=== PATIENT | female | born 1960 | race Caucasian/White ===

== ENCOUNTER 2018-03-23 12:01 | Emergency (ER) | payer MEDICARE, MEDICAID, SELFPAY ==
[2018-03-23 12:06] VITALS: BP 125/58; PULSE 70; RESP 18; TEMP 36.5; O2SAT 97
--- NOTE | 2018-03-23 12:31 | W.ED.GENAD ---
Discharge Plan Discharge Details Chief Complaint: RespSymp Primary Care Provider: Melanie Cheng V ED Provider: Bo Baires Home Meds and New Rx's Prescriptions: No Action cyanocobalamin (vitamin B-12) [Vitamin B-12] 1,000 MCG tablet extended release 1,000 mcg PO DAILY RF: 0 aspirin 325 MG tablet 325 mg PO DAILY RF: 0 hydrocodone-acetaminophen 1 EACH tablet 1 ea PO BID PRN PRNRF: 0 lorazepam 0.5 MG tablet 0.5 mg PO PRN PRNRF: 0 levothyroxine 137 MCG tablet 125 mcg PO DAILY RF: 0 venlafaxine [Effexor XR] 75 MG capsule,extended release 24hr 150 mg PO DAILY RF: 0 albuterol sulfate 8.5 GM HFA aerosol inhaler 2 inh Inhalation Q4H PRN PRNRF: 0 budesonide-formoterol [Symbicort] 60 PUFF HFA aerosol inhaler 1 inh Inhalation BID RF: 0 methocarbamol 500 MG tablet 500 mg PO DAILY RF: 0 Medical Decision Making [facility] Narrative Medical decision making narrative: 57-year-old female smoker with nearly a week of cough, congestion, production of yellow sputum. She is afebrile, well-appearing, without significant respiratory distress or hypoxia. I do believe this is consistent with acute bronchitis we will treat with a course of Augmentin. She stable for outpatient management. I did discuss return precautions to the ER with the patient prior to discharge HPI - General Adult General Date/Time Provider Initiated Documentation: 03/23/18 12:31. Limitations to Documentation: no limitations. Information obtained by: patient. History of Present Illness 57 year old F presents to the emergency department with the chief complaint of Cough, described as moderate, Quality is described as constant, and is localized to the chest. and it has been constant. Patient did receive the following treatments prior to arrival, none HPI Narrative: 57-year-old female smoker with cough, congestion, production of sputum over proxy 5-7 days time. It has been constant, without modifying factors. No associated fever or vomiting. She denies chest pain or shortness of breath. Positive sick contacts with a friend Related Data Home Medications Medication Instructions Recorded Confirmed aspirin 325 mg PO DAILY 11/12/12 03/23/18 cyanocobalamin (vitamin B-12) 1,000 mcg PO DAILY 11/12/12 03/23/18 [Vitamin B-12] hydrocodone-acetaminophen 1 ea PO BID PRN PRN 11/12/12 03/23/18 levothyroxine 125 mcg PO DAILY 11/12/12 03/23/18 lorazepam 0.5 mg PO PRN PRN 11/12/12 03/23/18 venlafaxine [Effexor XR] 150 mg PO DAILY 11/12/12 03/23/18 albuterol sulfate 2 inh INHALATION Q4H PRN PRN 03/21/15 03/23/18 budesonide-formoterol [Symbicort] 1 inh INHALATION BID 03/21/15 03/23/18 methocarbamol 500 mg PO DAILY 02/04/17 03/23/18 Allergies Allergy/AdvReac Type Severity Reaction Status Date / Time No Known Allergies Allergy Unverified 03/23/18 12:10 General Stated Complaint: RespSymp NAYE: 4 Review of Systems Review of Systems 6 systems reviewed, otherwise - PFSH Social History Smoking/Tobacco Use Status: Current every day Exam Const General: cooperative, healthy appearing, comfortable and no acute distress Orientation: alert, awake and oriented x3 HENMT Head: normal to inspection, normocephalic and atraumatic Ears: TM's normal bilaterally Chest Chest: normal inspection of the chest and normal palpation of entire chest wall Resp Effort & Inspection: normal respiratory effort Auscultation: clear to auscultation bilaterally and other (Few scattered rhonchi present) Cardio Rate: regular rate Rhythm: regular rhythm Heart Sounds: S1 normal and S2 normal Skin Lesions: no lesions Rashes: no rashes Neuro General: alert, awake and oriented x3 Cognition: normal cognition Speech: speech normal Extrem General: normal to inspection and full ROM Psych Appearance: grossly normal and well kempt Course Vital Signs Temperature 36.5 C 03/23/18 12:06 Pulse 70 03/23/18 12:06 Respiratory Rate 18 03/23/18 12:06 Blood Pressure 125/58 L 03/23/18 12:06 Pulse Oximetry 97 03/23/18 12:06 Temperature 36.5 C 03/23/18 12:06 Pulse 70 03/23/18 12:06 Respiratory Rate 18 03/23/18 12:06 Blood Pressure 125/58 L 03/23/18 12:06 Pulse Oximetry 97 03/23/18 12:06
--- NOTE | 2018-03-23 12:34 | ED.GENADUL_ITS ---
Discharge Plan Discharge Details Chief Complaint: RespSymp Primary Care Provider: Melanie Cheng V ED Provider: Bo Baires Home Meds and New Rx's Prescriptions: No Action cyanocobalamin (vitamin B-12) [Vitamin B-12] 1,000 MCG tablet extended release 1,000 mcg PO DAILY RF: 0 aspirin 325 MG tablet 325 mg PO DAILY RF: 0 hydrocodone-acetaminophen 1 EACH tablet 1 ea PO BID PRN PRNRF: 0 lorazepam 0.5 MG tablet 0.5 mg PO PRN PRNRF: 0 levothyroxine 137 MCG tablet 125 mcg PO DAILY RF: 0 venlafaxine [Effexor XR] 75 MG capsule,extended release 24hr 150 mg PO DAILY RF: 0 albuterol sulfate 8.5 GM HFA aerosol inhaler 2 inh Inhalation Q4H PRN PRNRF: 0 budesonide-formoterol [Symbicort] 60 PUFF HFA aerosol inhaler 1 inh Inhalation BID RF: 0 methocarbamol 500 MG tablet 500 mg PO DAILY RF: 0 Medical Decision Making [facility] Narrative Medical decision making narrative: 57-year-old female smoker with nearly a week of cough, congestion, production of yellow sputum. She is afebrile, well- appearing, without significant respiratory distress or hypoxia. I do believe this is consistent with acute bronchitis we will treat with a course of Augmentin. She stable for outpatient management. I did discuss return precautions to the ER with the patient prior to discharge HPI - General Adult General Date/Time Provider Initiated Documentation: 03/23/18 12:31 . Limitations to Documentation: no limitations . Information obtained by: patient . History of Present Illness 57 year old F presents to the emergency department with the chief complaint of Cough, described as moderate, Quality is described as constant, and is localized to the chest. and it has been constant. Patient did receive the following treatments prior to arrival, none HPI Narrative: 57-year-old female smoker with cough, congestion, production of sputum over proxy 5-7 days time. It has been constant, without modifying factors. No associated fever or vomiting. She denies chest pain or shortness of breath. Positive sick contacts with a friend Related Data Home Medications Medication Instructions Recorded Confirmed aspirin 325 mg PO DAILY 11/12/12 03/23/18 cyanocobalamin (vitamin B-12) 1,000 mcg PO DAILY 11/12/12 03/23/18 [Vitamin B-12] hydrocodone-acetaminophen 1 ea PO BID PRN PRN 11/12/12 03/23/18 levothyroxine 125 mcg PO DAILY 11/12/12 03/23/18 lorazepam 0.5 mg PO PRN PRN 11/12/12 03/23/18 venlafaxine [Effexor XR] 150 mg PO DAILY 11/12/12 03/23/18 albuterol sulfate 2 inh INHALATION Q4H PRN PRN 03/21/15 03/23/18 budesonide-formoterol [Symbicort] 1 inh INHALATION BID 03/21/15 03/23/18 methocarbamol 500 mg PO DAILY 02/04/17 03/23/18 Allergies Allergy/AdvReac Type Severity Reaction Status Date / Time No Known Allergies Allergy Unverified 03/23/18 12:10 General Stated Complaint: RespSymp NAYE: 4 Review of Systems Review of Systems 6 systems reviewed, otherwise - PFSH Social History Smoking/Tobacco Use Status: Current every day Exam Const General: cooperative, healthy appearing, comfortable and no acute distress Orientation: alert, awake and oriented x3 HENMT Head: normal to inspection, normocephalic and atraumatic Ears: TM's normal bilaterally Chest Chest: normal inspection of the chest and normal palpation of entire chest wall Resp Effort & Inspection: normal respiratory effort Auscultation: clear to auscultation bilaterally and other (Few scattered rhonchi present) Cardio Rate: regular rate Rhythm: regular rhythm Heart Sounds: S1 normal and S2 normal Skin Lesions: no lesions Rashes: no rashes Neuro General: alert, awake and oriented x3 Cognition: normal cognition Speech: speech normal Extrem General: normal to inspection and full ROM Psych Appearance: grossly normal and well kempt Course Vital Signs Temperature 36.5 C 03/23/18 12:06 Pulse 70 03/23/18 12:06 Respiratory Rate 18 03/23/18 12:06 Blood Pressure 125/58 L 03/23/18 12:06 Pulse Oximetry 97 03/23/18 12:06 Temperature 36.5 C 03/23/18 12:06 Pulse 70 03/23/18 12:06 Respiratory Rate 18 03/23/18 12:06 Blood Pressure 125/58 L 03/23/18 12:06 Pulse Oximetry 97 03/23/18 12:06
== END 2018-03-23 13:03 | disposition home or self-care (01) ==
PROVIDERS: Emergency Provider Emergency Medicine; PCP Family Medicine
DX: J20.9 Acute bronchitis, unspecified (principal); F17.210 Nicotine dependence, cigarettes, uncomplicated
CPT/HCPCS: 99283

== ENCOUNTER 2018-08-17 13:32 | Outpatient (REF) | payer MEDICARE, MEDICAID, SELFPAY ==
[2018-08-17 20:41] LABS: HCT 47.3 % (36.0-46.0); HGB 15.8 g/dL (12.0-15.5); Mean Corp. HGB Concentration 33.4 g/dL (32.0-36.0); Mean Corpuscular Hemoglobin 31.3 pg (27.0-33.0); Mean Corpuscular Volume 93.7 fL (80-95); Mean Platelet Volume 11.8 fL (8.0-11.0); Platelet Count 176 x1000/uL (130-400); RBC 5.05 m/cumm (4.00-5.20); RBC Distribution Width 13.7 % (11.7-14.6); White Blood Cell Count 5.19 k/cumm (4.4-10.8)
[2018-08-17 20:51] LABS: PTT Activated 24.1 sec (21.0-31.4); Prothrombin Time 10.4 sec (9.3-11.0)
[2018-08-17 20:58] LABS: Anion Gap 8.4 mmol/L (3-11); BUN 14 mg/dL (7-18); CO2 31.6 mmol/L (21.0-32.0); CREATININE 0.96 mg/dL (0.55-1.02); Calcium 9.4 mg/dL (8.5-10.1); Chloride 99 mmol/L (98-107); Estimated GFR 59.49 (mL/min/1.73m2); Glucose 81 mg/dL (70-100); Sodium 139 mmol/L (136-145); TSH (W/Ref FT4) 0.14 uIU/mL (0.358-3.74)
[2018-08-17 21:20] LABS: FREE T4 1.58 ng/dL (0.76-1.46)
[2018-08-22 09:43] LABS: Codeine Negative ng/mL (Cutoff: 25); Dihydrocodeine 129 ng/mL (Cutoff: 25); Hydrocodone 142 ng/mL (Cutoff: 25); Hydromorphone 61 ng/mL (Cutoff: 25); Morphine Negative ng/mL (Cutoff: 25); Naloxone Negative ng/mL (Cutoff: 25); Norhydrocodone 831 ng/mL (Cutoff: 25); Noroxycodone Negative ng/mL (Cutoff: 25); Noroxymorphone Negative ng/mL (Cutoff: 25); Opiates Interpretation Positive.
== END 2018-08-17 13:52 ==
LOC: NCHCN 13:32
PROVIDERS: PCP Family Medicine; Visit Provider Family Medicine
DX: E03.9 Hypothyroidism, unspecified (principal); R03.0 Elevated blood-pressure reading, without diagnosis of hypertension; R23.3 Spontaneous ecchymoses; F11.20 Opioid dependence, uncomplicated; M54.5 Low back pain; G89.29 Other chronic pain
CPT/HCPCS: 80048; 80361; 85027; 84439; 84443; 85025; 85610; 85730

== ENCOUNTER 2018-08-27 01:22 | Outpatient (CLI) | payer MEDICARE, MEDICAID, SELFPAY ==
--- NOTE | 2018-08-27 15:12 | DI.CTLCSR_ITS ---
SYMPTOM/DIAGNOSIS: TOBACCO USE, Z72.0, CURRENT SMOKER F17.210 LOW DOSE LUNG CANCER SCREENING EXAMINATION. Noncontrast CT scan of the chest was performed according to the low dose lung cancer screening protocol Comparison CT scan of the chest is 05/12/17. The thoracic aorta shows mild atherosclerosis. Heart size is within normal limits. No significant pericardial effusion seen. No significant thoracic adenopathy is identified. No pleural effusion or pneumothorax is identified. Moderate emphysematous changes are seen within the lungs. No pulmonary infiltrates or pulmonary nodules are identified. The tracheobronchial tree is unremarkable. Degenerative changes are seen in the spine. IMPRESSION: No pulmonary nodules. Category 1. MQSA ASSESSMENT OF FINDINGS: Negative. Category 1. Patient will receive a letter notifying them of these results.
== END 2018-08-27 01:42 ==
PROVIDERS: PCP Family Medicine; Visit Provider Family Medicine
DX: Z12.2 Encounter for screening for malignant neoplasm of respiratory organs (principal); F17.210 Nicotine dependence, cigarettes, uncomplicated
CPT/HCPCS: G0297

== ENCOUNTER 2019-01-31 17:06 | Outpatient (REF) | payer MEDICARE, MEDICAID, SELFPAY ==
[2019-01-31 22:17] LABS: TSH 0.05 uIU/mL (0.358-3.74)
[2019-02-01 13:54] LABS: FREE T4 1.22 ng/dL (0.76-1.46)
== END 2019-01-31 17:26 ==
LOC: NCHCN 17:06
PROVIDERS: PCP Family Medicine; Visit Provider Family Medicine
DX: E03.9 Hypothyroidism, unspecified (principal)
CPT/HCPCS: 84439; 84443

== ENCOUNTER 2019-07-26 13:32 | Outpatient (REF) | payer MEDICARE, MEDICAID, SELFPAY ==
[2019-07-26 20:01] LABS: Anion Gap 8.2 mmol/L (3-11); BUN 12 mg/dL (7-18); CO2 31.8 mmol/L (21.0-32.0); CREATININE 0.76 mg/dL (0.55-1.02); Calcium 9.1 mg/dL (8.5-10.1); Chloride 101 mmol/L (98-107); Glucose 91 mg/dL (74-106); Potassium 4.4 mmol/L (3.5-5.1); Sodium 141 mmol/L (136-145); TSH (W/Ref FT4) 0.24 uIU/mL (0.36-3.74)
[2019-07-26 20:55] LABS: FREE T4 1.31 ng/dL (0.76-1.46)
== END 2019-07-26 13:52 ==
LOC: NCHCN 13:32
PROVIDERS: PCP Family Medicine; Visit Provider Family Medicine
DX: E03.9 Hypothyroidism, unspecified (principal); R35.8 Other polyuria; K21.9 Gastro-esophageal reflux disease without esophagitis; M54.2 Cervicalgia; M54.5 Low back pain
CPT/HCPCS: 80048; 84439; 84443

== ENCOUNTER 2019-08-05 00:35 | Outpatient (CLI) | payer MEDICARE, MEDICAID, SELFPAY ==
--- NOTE | 2019-08-05 10:14 | DI.MAMMO_ITS ---
EXAM: MAMMO SCREENING CLINICAL HISTORY: SCREENING , [facility] Z00.00 TECHNIQUE: Mammograms were interpreted according to the usual protocol including computer analysis w [employer] system, tomosynthesis and C-view imaging. COMPARISON: February 2017 FINDINGS: The breasts are of moderate density with prominent retroareolar nodularity/ductal prominence. No dom inant mass or clumped microcalcification is identified in either breast. Current examination is comp ared with previous examinations including February 2017 and there has been no gross interval change in appearance in comparison with previous studies. IMPRESSION: No specific evidence of malignancy at this time. Routine screening examinations are suggested at year ly intervals in this age group according to the ACS/ACR guidelines. Category 1, breast density catego ry B. BI-RADS Cat 1 - Negative Breast Density - Category B - Scattered areas of fibroglandular density
== END 2019-08-05 00:55 ==
PROVIDERS: PCP Family Medicine; Visit Provider Family Medicine
DX: Z12.31 Encounter for screening mammogram for malignant neoplasm of breast (principal)
CPT/HCPCS: 77063; 77067

== ENCOUNTER 2019-12-06 04:11 | Outpatient (CLI) | payer MEDICARE, MEDICAID, SELFPAY | END 2019-12-06 04:31 | PROVIDERS: PCP Family Medicine; Visit Provider Family Medicine | DX: R07.89 Other chest pain (principal) | CPT/HCPCS: 93225 ==

== ENCOUNTER 2019-12-09 09:01 | Outpatient (CLI) | payer MEDICARE, MEDICAID, SELFPAY ==
--- NOTE | 2019-12-10 08:54 | W.HOLTRPT ---
Date of service: 12/10/19 Time of Service: 08:55 Holter Monitor Report Holter Monitor Note: There is a 48-hour Holter monitor ordered for indication of chest pain. ?Patient was in normal sinus rhythm for the majority of the recording (mean heart rate 82 bpm with a maximum heart rate of 132 bpm) ?There was one episode of SVT lasting 3 beats and rare PACs. ?There were 0 episodes of ventricular tachycardia and 14 PVCs. ?There were 0 episodes of atrial fibrillation no pauses or in 3 seconds and no evidence of high degree heart block. ?Patient diary events were associated with normal sinus rhythm and sinus tachycardia.
== END 2019-12-09 09:21 ==
PROVIDERS: PCP Family Medicine; Visit Provider Family Medicine
DX: R07.89 Other chest pain (principal)
CPT/HCPCS: 93226

== ENCOUNTER 2019-12-10 08:54 | Outpatient (CLI) | payer MEDICARE, MEDICAID, SELFPAY | END 2019-12-10 09:14 | PROVIDERS: PCP Family Medicine; Referring Provider Family Medicine; Visit Provider Internal Medicine Cardiovascular Disease | DX: I47.1 Supraventricular tachycardia (principal); I49.3 Ventricular premature depolarization; I49.1 Atrial premature depolarization; R07.89 Other chest pain | CPT/HCPCS: 93227 ==

== ENCOUNTER 2020-08-28 02:56 | Outpatient (CLI) | payer MEDICARE, MEDICAID, SELFPAY ==
--- NOTE | 2020-08-28 14:25 | DI.CTLCSR_ITS ---
EXAM: CT CHEST LUNG CANCER SCREEN CLINICAL HISTORY: SCREENING FOR LUNG CA,CURRENT SMOKER, F17.210 TECHNIQUE: Imaging Protocol: Axial computed tomography images with coronal and sagittal reformatted images were created and reviewed COMPARISON: CT CT CHEST LUNG CANCER SCREEN from 08/27/2018 FINDINGS: Tracheobronchial tree: Patent where visualized. Mediastinum and Baylee: No dominant adenopathy or fluid collection. Pulmonary parenchyma: No consolidation or dominant measurable mass. Moderate centrilobular emphysema. . Lung Nodules: There is a new 4 x 4 x 3 millimeter nodule in the anterior medial left upper lobe. Pleura: No effusion or pneumothorax. Heart: The heart is not dilated. Minimal coronary artery calcifications are seen. No pericardial effu kierra. Aorta: Ascending aorta 3.7 cm. Minimal calcifications. Upper abdomen: Unremarkable. Bones: Mild degenerative disc changes. Soft Tissues: Unremarkable. IMPRESSION: New 4 millimeter nodule anteromedial left upper lobe. Category BI-RADS Cat 2 - Benign Findings Lung-RADS 1.0 CATEGORIES: Category 0 - Prior chest CT exam(s) being located for comparison. Category 1 - Annual screening in 12 months. No nodules or definitely benign nodules. Category 2 - Annual screening in 12 months. Benign appearance. Nodules with low likelihood of becomin g active cancer. Category 3 - 6-month follow-up. Probably benign. Short-term follow-up suggested. Nodules with low lik elihood of becoming active cancer. Category 4A - 3-month follow-up and CT/PET if >8 mm in size. Suspicious finding. Findings which requi re additional testing. Category 4B - Findings which require additional testing and tissue sampling. Suspicious finding. C Added to Any of the Above - History of prior lung cancer screening. S Added to Any of the Above - Significant unexpected other finding. RADIATION DOSE DELIVERED: 85.97mGy.cm Total DLP DATA REPOSITORY: All CT scans at this facility are submitted to the National Radiology Data Registry (NRDR) Dose Index Registry (DIR) with the [employer] (ACR). RADIATION OPTIMIZATION: All CT scans at this facility use at least one of these dose optimization te chniques: automated exposure control; mA and/or kV adjustment per patient size (includes targeted exa ms where dose is matched to clinical indication); or iterative reconstruction.
== END 2020-08-28 02:57 ==
LOC: DI 02:56
PROVIDERS: PCP Family Medicine; Visit Provider Family Medicine
DX: F17.210 Nicotine dependence, cigarettes, uncomplicated (principal); R91.1 Solitary pulmonary nodule
CPT/HCPCS: 71271

== ENCOUNTER 2020-11-19 16:11 | Outpatient (REF) | payer MEDICARE, MEDICAID, SELFPAY ==
[2020-11-21 14:49] LABS: COVID-19 RT-PCR UVMMC Result Negative (Negative)
== END 2020-11-19 16:12 | disposition home or self-care (01) ==
LOC: NCHCN 16:11
PROVIDERS: PCP Family Medicine; Visit Provider Family Medicine
DX: J02.9 Acute pharyngitis, unspecified (principal); J06.9 Acute upper respiratory infection, unspecified; Z20.822 Contact with and (suspected) exposure to COVID-19
CPT/HCPCS: U0003; 87070

== ENCOUNTER 2020-11-24 02:07 | Outpatient (CLI) | payer MEDICARE, MEDICAID, SELFPAY ==
--- NOTE | 2020-11-24 13:33 | DI.RAD_ITS ---
Exam(s) XR CERVICAL SPINE COMP 4-5V EXAM: XR CERVICAL SPINE COMP 4-5V CLINICAL HISTORY: PARESTHESIA OF ARM, R20.2 TECHNIQUE: COMPARISON: CR CERVICAL SP. LIMITED (TRAUMA) from 09/28/2011 FINDINGS: Five views were obtained. There is narrowing of the intervertebral disc spaces at C5-6 and C6-7. Th ere are moderate hypertrophic endplate and facet degenerative changes throughout the cervical region. There is question narrowing of neural foramina at C3-4 and C5-6 on the right. There may be mild ne ural foraminal narrowing at C5-6 and C6-7 the left. There is no evidence of acute fracture or disloc ation. IMPRESSION: Degenerative changes of the cervical spine as described above. If there is a question of neural impi ngement, additional evaluation with cervical spine MRI may be considered. RADIATION DOSE DELIVERED: Total DLP
== END 2020-11-24 02:27 ==
PROVIDERS: PCP Family Medicine; Visit Provider Family Medicine
DX: M54.2 Cervicalgia (principal); R20.2 Paresthesia of skin; M50.322 Other cervical disc degeneration at C5-C6 level; M50.323 Other cervical disc degeneration at C6-C7 level
CPT/HCPCS: 72050

== ENCOUNTER 2020-12-21 02:33 | Outpatient (CLI) | payer MEDICARE, MEDICAID, SELFPAY ==
--- NOTE | 2020-12-21 15:55 | DI.MRI_ITS ---
Exam(s) MR CERVICAL SPINE WO EXAM: MR CERVICAL SPINE WO CLINICAL HISTORY: CERVICALGIA, M54.2 TECHNIQUE: Multiplanar multisequence MRI of the cervical spine was performed without intravenous con trast. COMPARISON: CR XR CERVICAL SPINE COMP 4-5V from 11/24/2020 FINDINGS: The examination is limited due to patient motion artifact. BONES: Vertebral body heights are maintained. Intervertebral disc spaces are normal. Alignment is nor mal. Degenerative endplate signal changes seen at C5-C6. CERVICAL CORD: Craniovertebral junction is unremarkable. The cervical cord is normal size and signal intensity. SOFT TISSUES: There is a 1.6 cm lipoma in the subcutaneous tissues post anterior to the C5 spinous pr ocess. C2-3: No disc herniation or bulge is identified. No significant central spinal canal or neural forami nal stenosis. C3-4: No disc herniation or bulge is identified. No significant central spinal canal stenosis. Hyper trophic changes are seen at the right uncovertebral joint resulting in moderate right neural foramina l stenosis. No significant left neural foraminal stenosis is seen. C4-5: Mild prominence of the osteophyte disc complex. No significant central spinal canal stenosis. No definite significant neural foraminal stenosis. C5-6: There are degenerative endplate signal changes. There is mild prominence of the osteophyte dis c complex. This does result in mild narrowing of the central spinal canal. There are hypertrophic c hanges of the uncovertebral joint resulting in [id number] bilateral neural foraminal stenosis, right greater than left. C6-7: There is prominence of the osteophyte disc complex. No significant central spinal canal stenos is. There do appear to be hypertrophic changes of the uncovertebral joint resulting in mild bilatera l neural foraminal narrowing. C7-T1: No disc herniation or bulge is identified. No significant central spinal canal or neural king inal stenosis IMPRESSION: 1. Suboptimal examination due to patient motion artifact. 2. Degenerative changes throughout the cervical spine resulting in central spinal canal and neural fo raminal stenosis as described above. DATA REPOSITORY:
== END 2020-12-21 02:53 ==
PROVIDERS: PCP Family Medicine; Visit Provider Family Medicine
DX: M54.2 Cervicalgia (principal); M99.71 Connective tissue and disc stenosis of intervertebral foramina of cervical region
CPT/HCPCS: 72141

== ENCOUNTER 2020-12-27 10:43 | Emergency (ER) | payer MEDICARE, MEDICAID, SELFPAY ==
[2020-12-27] VITALS (48 sets, daily range): BP systolic 108–139; BP diastolic 64–90; PULSE 18–97; RESP 12–27; TEMP 36.7; O2SAT 91–97
--- NOTE | 2020-12-27 10:45 | RT.EKG_ITS ---
APPROVED REPORT Exam: Resting ECG Reason for Exam: chest pain Patient Location: E HR:89 bpm ECG Measurements Heart Rate [address] 135 P 83 QRSd 67 QRS 36 QT 362 T 78 QTc 442 Conclusion Sinus rhythm...normal P axis, V-rate 60- 99 Biatrial enlargement.
--- NOTE | 2020-12-27 11:00 | DI.RAD_ITS ---
Exam(s) XR CHEST 2V PA LATERAL EXAM: XR CHEST 2V PA LATERAL CLINICAL HISTORY: chest pain TECHNIQUE: 2D digital imaging was performed. COMPARISON: CR CHEST 2 VIEWS PA,LAT from 09/17/2015 CR CHEST 2 VIEWS PA,LAT from 09/17/2015 FINDINGS: MEDIASTINUM: Normal. HEART: Normal. PULMONARY VASCULATURE: Normal. LUNGS: Small focal infiltrate to the left of the heart. The lungs are hyperexpanded with flattened d iaphragms suggesting underlying COPD. PLEURAL SPACE: No pleural effusion or pneumothorax. Unchanged scarring in the right costophrenic angl e. BONE:Within normal limits for the patient's age. OTHER FINDINGS:Normal. IMPRESSION: Question of a small infiltrate to the left of the heart. DATA REPOSITORY: RADIATION DOSE DELIVERED:
--- NOTE | 2020-12-27 11:15 | W.ED.GENAD ---
Discharge Plan Disposition Patient Disposition: HOME Condition: Improving Discharge Details Clinical Impression: Lingular pneumonia Primary Care Provider: Melanie Cheng V ED Provider: Bo Baires Home Meds and New Rx's Prescriptions: New azithromycin 250 mg tablet 250 mg PO DAILY 4 Days Qty: 4 RF: 0 Continued cyanocobalamin (vitamin B-12) [Vitamin B-12] 1,000 MCG tablet extended release 1,000 mcg PO DAILY RF: 0 aspirin 325 MG tablet 325 mg PO DAILY RF: 0 albuterol sulfate 8.5 GM HFA aerosol inhaler 2 inh Inhalation Q4H PRN PRNRF: 0 budesonide-formoterol [Symbicort] 60 PUFF HFA aerosol inhaler 1 inh Inhalation BID RF: 0 methocarbamol 500 MG tablet 500 mg PO BID RF: 0 venlafaxine 75 mg capsule,extended release 24hr 75 mg PO DAILY RF: 0 hydrocodone-acetaminophen 5-325 mg tablet 1 tab PO QHS PRNRF: 0 venlafaxine 150 mg capsule,extended release 24hr 150 mg PO DAILY RF: 0 levothyroxine 125 mcg tablet 125 mcg PO Q OTHER DAY RF: 0 losartan 25 mg tablet 25 mg PO DAILY RF: 0 omeprazole 20 mg capsule,delayed release(DR/EC) 20 mg PO DAILY RF: 0 levothyroxine 112 mcg tablet 112 mcg PO Q OTHER DAY RF: 0 Medical Decision Making 60-year-old female states she 3 days or work after her stove ran out of propane and had a headache. Seem to resolve but was replaced by right upper quadrant abdominal pain that is burning, worse with deep inspiration and worse while lying flat. Also complains of sensation of restless legs. No recent fever or vomiting. She took her morning medications. She arrives to the ER in no acute distress, normotensive and oxygenating normally. She has minimal right upper quadrant tenderness on exam. Exam otherwise reassuring. Differential diagnosis is broad, including pleurisy, biliary colic, gastritis, pancreatitis, must exclude PE or ACS. Patient placed in a monitoring specialist, screening laboratories including troponin and D-dimer obtained. Patient given PPI and Mylanta. Patient's diagnostic studies note a white count of 4, hematocrit 47, platelets 109. D-dimer is elevated at 5824. Borderline low sodium of 135. Chemistries otherwise reassuring, troponin negative. Chest x-ray with small right-sided pleural effusion. Given the patient's elevated D-dimer she was referred for CT of the chest, and given her differential diagnosis and tenderness in the right upper quadrant she also had imaging of the abdomen and pelvis. CT scans reveal no acute findings of the abdomen or pelvis. There is no evidence of pulmonary embolism. There is atelectasis versus inflammatory changes of the left lingula. Following medications, the patient is improved. She will note some recent cough and has been a smoker. I will treat her with azithromycin for atypical infections. She is stable and appropriate for discharge home. She understands indications to return to the ER for reevaluation. HPI General Mode of arrival: ambulatory. Date/Time Provider Initiated Documentation: 12/27/20 10:46. Limitations to Documentation: no limitations. Information obtained by: patient. History of Present Illness 60 year old F presents to the emergency department with the chief complaint of Right-sided chest pain and restless legs, described as mild, and is localized to the chest and right. Patient reports no radiation. Patient started experiencing this day(s) and it has been intermittent. No relieving factors improve symptom(s), Other factors that worsen symptoms (Seems worse lying flat) . Patient notes denies shortness of breath. Patient did receive the following treatments prior to arrival, none Related Data Home Medications Medication Instructions Recorded Confirmed aspirin 325 mg PO DAILY 11/12/12 12/27/20 cyanocobalamin (vitamin B-12) 1,000 mcg PO DAILY 11/12/12 12/27/20 [Vitamin B-12] albuterol sulfate 2 inh INHALATION Q4H PRN PRN 03/21/15 12/27/20 budesonide-formoterol [Symbicort] 1 inh INHALATION BID 03/21/15 12/27/20 methocarbamol 500 mg PO BID 02/04/17 12/27/20 azithromycin 250 mg PO DAILY 4 Days #4 tab 12/27/20 hydrocodone-acetaminophen 1 tab PO QHS PRN 12/27/20 12/27/20 levothyroxine 112 mcg PO Q OTHER DAY 12/27/20 12/27/20 levothyroxine 125 mcg PO Q OTHER DAY 12/27/20 12/27/20 losartan 25 mg PO DAILY 12/27/20 12/27/20 omeprazole 20 mg PO DAILY 12/27/20 12/27/20 venlafaxine 75 mg PO DAILY 12/27/20 12/27/20 venlafaxine 150 mg PO DAILY 12/27/20 12/27/20 Previous Rx's Medication Instructions Recorded azithromycin 250 mg PO DAILY 4 Days #4 tab 12/27/20 Allergies Allergy/AdvReac Type Severity Reaction Status Date / Time No Known Allergies Allergy Unverified 12/27/20 10:59 General Stated Complaint: Chest Pain NAYE: 2 Review of Systems Narrative: 6 systems reviewed and otherwise negative. No leg pain or swelling. No recent fall or injury. [facility] Social History Smoking/Tobacco Use Status: Current every day Tobacco Type: cigarettes Smoking risk assessment performed?: Yes Alcohol Intake: never Drug use: Occasionally Substance use type: marijuana Do you feel safe at home: Yes Do you feel safe in your relationship?: Yes Exam Narrative Exam Narrative: GEN: awake, alert, oriented 3. Pleasant, well groomed, interactive. HEAD: Normocephalic, atraumatic ENT: Mucous membranes moist, oropharynx unremarkable, External ear exam unremarkable EYES: PERRL, EOMI NECK: Full ROM, no WAN, no menigismus CHEST/RESP: Nontender, clear to auscultation bilateral, no wheeze/rhonchi/rales CARDIOVASCULAR: RRR, no murmur, rub rosita. 2+ Rad pulse bilateral ABDOMEN: Soft, minimal right upper quadrant tenderness to palpation, no mass. +Bowel sounds EXT: Full ROM, no edema, no rash Neuro: Grossly normal neurologic exam, conversant, interactive. Psych: Speech fluent, thoughts congruent, affect normal Course Vital Signs Vital signs: Vital Signs Pulse 18 L 12/27/20 10:57 Respiratory Rate 20 12/27/20 10:57 Blood Pressure 130/75 12/27/20 10:57 Pulse Oximetry 95 12/27/20 10:57 Pulse 18 L 12/27/20 10:57 Respiratory Rate 20 12/27/20 10:57 Respiratory Effort Non-Labored 12/27/20 11:09 Blood Pressure 130/75 12/27/20 10:57 Blood Pressure Position Sitting 12/27/20 10:57 Pulse Oximetry 95 12/27/20 10:57 Oxygen Delivery Method Room Air 12/27/20 10:57 Oxygen Flow Rate 0 12/27/20 10:57 Pain Level 8 12/27/20 10:57
[2020-12-27 11:22] LABS: Abs Immature Grans 0.01 10^3/uL (0.0-0.06); Absolute Basophil Count 0.02 10^3/uL (0.0-0.2); Absolute Lymphocyte Count 0.61 10^3/uL (1.2-3.4); Absolute Monocyte Count 0.33 10^3/uL (0.1-0.8); Absolute Neutrophil Count 3.23 10^3/uL (1.2-6.7); Basophils % 0.5; HCT 47.2 % (36.0-46.0); HGB 16.3 g/dL (11.2-15.7); Immature Grans % 0.2; Lymphocytes % 14.5; MCH 31.4 pg (27.0-33.0); MCHC 34.5 % (32.0-36.0); MCV 90.9 fL (80-95); MPV 10.6 fL (8.0-11.0); Monocytes % 7.9; Neutrophils % 76.9; Nucleated RBC 0 %; RBC 5.19 10^6/uL (3.93-5.22); RDW 12.8 % (11.7-14.6); RDW-SD 42.8 fL
[2020-12-27] MEDS: Normal Saline 500 ML IV (11:29)
[2020-12-27 11:33] LABS: ALT 23 U/L (14-59); AST 26 U/L (15-37); Albumin 3.9 g/dL (3.4-5.0); Alkaline Phosphatase 93 U/L (46-116); Anion Gap 7.3 mmol/L (3-11); BUN 12 mg/dL (7-18); Bilirubin, Total 0.5 mg/dL (0.2-1.0); CO2 30.7 mmol/L (21.0-32.0); CREATININE 0.9 mg/dL (0.55-1.02); Chloride 97 mmol/L (98-107); Glucose 107 mg/dL (74-106); Magnesium 1.8 mg/dL (1.8-2.4); Potassium 3.8 mmol/L (3.5-5.1); Sodium 135 mmol/L (136-145); Total Protein 7.9 g/dL (6.4-8.2)
[2020-12-27 11:34] LABS: Troponin I < 0.05 ng/mL (<0.06)
[2020-12-27 11:35] LABS: Diff Comment Diff Reviewed; Platelet Count 109 10^3/uL (130-400); RBC Morphology Normal
[2020-12-27] MEDS: Pantoprazole 40 MG VIAL IVP (11:35)
[2020-12-27 11:36] LABS: Lipase 68 U/L (73-393)
[2020-12-27 12:32] LABS: D-Dimer 5824 ng/mlFEU (<500)
--- NOTE | 2020-12-27 12:45 | DI.CT_ITS ---
Exam(s) CT CHEST PE ABD PELVIS W EXAM: CT CHEST PE ABD PELVIS W CLINICAL HISTORY: RUQ/R lower chest pain, DDImer high. TECHNIQUE: Imaging Protocol: Axial CT angiography was performed with multi-slice acquisition and mu lti-planar and/or 3D reconstructions. CONTRAST MATERIAL: Intravenous: Omnipaque 350 Contrast volume:100 mL COMPARISON: CT CT CHEST LUNG CANCER SCREEN from 08/28/2020 FINDINGS: The examination is limited due to patient motion artifact. CHEST: Pulmonary Arteries: No evidence of filling defect to suggest pulmonary emboli. Tracheobronchial tree: Patent where visualized. Mediastinum and Baylee: No dominant adenopathy or fluid collection. Pulmonary parenchyma: There is a small opacity seen in the left lingula. Second smaller opacity more posterior and laterally in the lingular lobe. Moderate centrilobular and paraseptal emphysema. Pleura: No effusion or pneumothorax. Heart: The heart is not dilated. No coronary artery calcifications are seen. No pericardial effusion. Aorta: Thoracic aorta non-dilated. Mild atherosclerosis. No evidence of dissection. Bones: Within normal limits. ABDOMEN: Liver: Normal density. No measurable mass. Portal, Superior Mesenteric, and Splenic Veins: Unremarkable. Gallbladder and Biliary Tract: No radiodense calculus or dilation. Pancreas: Normal density, no abnormal calcifications or inflammatory process. Spleen: Normal. Adrenals: No masses seen. Kidneys: Normal size, contour and axis. No radiodense stones or obstructive uropathy. No masses seen. Abdominal Aorta: Abdominal portion non-dilated. Atherosclerosis. Bowel: No obstruction or bowel wall thickening. Appendix is unremarkable. Sigmoid diverticulosis, but no evidence of acute diverticulitis. There is a moderate amount of retained stool throughout the co lexi. Peritoneal Cavity: No ascites, collection or mesenteric inflammatory response. Lymph Nodes: Within normal limits. Bones: Within normal limits for the patient's age. Soft Tissues: Unremarkable. PELVIS: Bladder: Symmetric distention, no gross wall thickening. Reproductive Organs: Status post hysterectomy. Lymph Nodes: Within normal limits. Bones: Within normal limits. IMPRESSION: 1. No evidence of pulmonary embolism, thoracic aortic dissection or aneurysm. 2. Atelectasis versus inflammatory/infectious changes in the left lingula. Please correlate clinical ly. Follow-up as appropriate. 3. No acute abdominal or pelvic process. RADIATION DOSE DELIVERED: 818.17mGy.cm Total DLP DATA REPOSITORY: All CT scans at this facility are submitted to the National Radiology Data Registry (NRDR) Dose Index Registry (DIR) with the [employer] (A[employer]). RADIATION OPTIMIZATION: All CT scans at this facility use at least one of these dose optimization te chniques: automated exposure control; mA and/or kV adjustment per patient size (includes targeted exa ms where dose is matched to clinical indication); or iterative reconstruction.
--- NOTE | 2020-12-27 13:08 | DI.VRAD_ITS ---
PROCEDURE INFORMATION: Exam: XR Chest Exam date and time: 12/27/2020 12:13 PM Age: 60 years old Clinical indication: Chest wall pain TECHNIQUE: Imaging protocol: XR of the chest. Views: 2 views. COMPARISON: CT CHEST LUNG CANCER SCREEN 08/28/2020 2:23 PM FINDINGS: Lungs: Likely prominent vasculature and or bronchi along the left inferior hilum as there is no definite correlate on recent CT of the chest. Lungs otherwise clear. Hyperexpanded lungs suggestive of COPD. Pleural spaces: No pneumothorax. Small right-sided pleural effusion Heart/Mediastinum: Cardiomediastinal silhouette within normal limits. Bones/joints: No acute displaced fractures. IMPRESSION: Small right-sided pleural effusion without other acute cardiopulmonary findings. Dictated and Authenticated by: Kenton Conti MD. Ordering:MAYE Soriano MD
[2020-12-27] MEDS: Omnipaque 350 MG/ML 100 ML BTL IV (14:13)
[2020-12-27] MEDS: Normal Saline Flush 10 ML SYR IVP (14:14)
[2020-12-27] MEDS: Normal Saline - Diluent 50 ML VIAL IV (14:14)
[2020-12-27 14:31] LABS: Troponin I < 0.05 ng/mL (<0.06)
--- NOTE | 2020-12-27 14:43 | DI.VRAD_ITS ---
PROCEDURE INFORMATION: Exam: CTA Chest With Contrast Exam date and time: 12/27/2020 12:46 PM Age: 60 years old Clinical indication: Other: Ruq/r lower chest pain, ddimer high; Additional info: Ruq/r lower chest pain, ddimer high pe/abd/pel TECHNIQUE: Imaging protocol: Computed tomographic angiography of the chest with contrast. 3D rendering (Not supervised by radiologist): MIP and/or 3D reconstructed images were created by the technologist. Radiation optimization: All CT scans at this facility use at least one of these dose optimization techniques: automated exposure control; mA and/or kV adjustment per patient size (includes targeted exams where dose is matched to clinical indication); or iterative reconstruction. Contrast material: OMNIAQUE 350; Contrast volume: 100 ml; Contrast route: INTRAVENOUS (IV); COMPARISON: CT CHEST LUNG CANCER SCREEN 08/28/2020 2:23 PM FINDINGS: Pulmonary arteries: Normal caliber main pulmonary artery. No convincing evidence of pulmonary embolus. Aorta: Normal caliber aorta. Thyroid: Thyroid unremarkable. Lungs: Clear central airways. Suspected small focus consolidation versus irregular appearing atelectasis left lingula. Image 42 series 4. Additional nodule versus atelectasis slightly more posteriorly. Image 40 series 4. New since prior. Pleural spaces: No pneumothorax. No pleural effusion. Heart: Heart is normal size. Lymph nodes: No suspicious lymphadenopathy. Bones/joints: No acute fracture or dislocation. Bony degenerative changes. Soft tissues: Unremarkable superficial soft tissues. IMPRESSION: 1. No evidence of pulmonary embolus. 2. Atelectasis versus infectious/inflammatory change left lingula. Please correlate for infectious signs/symptoms. PROCEDURE INFORMATION: Exam: CT Abdomen And Pelvis With Contrast Exam date and time: 12/27/2020 12:46 PM Age: 60 years old Clinical indication: Other: Ruq/r lower chest pain, ddimer high; Additional info: Ruq/r lower chest pain, ddimer high pe/abd/pel TECHNIQUE: Imaging protocol: Computed tomography of the abdomen and pelvis with contrast. Radiation optimization: All CT scans at this facility use at least one of these dose optimization techniques: automated exposure control; mA and/or kV adjustment per patient size (includes targeted exams where dose is matched to clinical indication); or iterative reconstruction. Contrast material: OMNIAQUE 350; Contrast volume: 100 ml; Contrast route: INTRAVENOUS (IV); COMPARISON: CT CHEST LUNG CANCER SCREEN 08/28/2020 2:23 PM FINDINGS: Liver: Unremarkable liver. Gallbladder and bile ducts: Unremarkable gallbladder. Pancreas: Unremarkable. Spleen: Unremarkable spleen. Adrenal glands: Unremarkable bilateral adrenal glands. Kidneys and ureters: Unremarkable bilateral kidneys. No hydronephrosis. Ureters not well visualized due to crowding of structures within the abdomen and pelvis. Stomach and bowel: Nonobstructive appearance of the bowel. Appendix: Unremarkable appendix seen at the right upper quadrant. Intraperitoneal space: No significant free fluid. No free air. Vasculature: patent portal and hepatic veins. Vascular calcifications. Normal caliber aorta. Lymph nodes: No suspicious lymphadenopathy. Urinary bladder: Bladder poorly distended and poorly evaluated. Grossly unremarkable. Reproductive: Uterus appears absent. Adnexa not definitively seen. Bones/joints: Bony degenerative changes. No acute fracture or dislocation. Soft tissues: Unremarkable superficial soft tissues. Possible intramuscular lipoma left thigh. IMPRESSION: No acute findings of the abdomen or pelvis. Dictated and Authenticated by: Kenton Conti MD. Ordering:MAYE Soriano MD
[2020-12-27] MEDS: Azithromycin 250 MG TAB 500 MG PO (15:02)
== END 2020-12-27 15:11 | disposition home or self-care (01) ==
PROVIDERS: Emergency Provider Emergency Medicine; PCP Family Medicine
DX: J18.8 Other pneumonia, unspecified organism (principal); F17.210 Nicotine dependence, cigarettes, uncomplicated
CPT/HCPCS: 36415; 71275; 74177; 80053; 83690; 93005; 96361; 96374; 99285; 71046; 83735; 84484; 85025; 85379; 93010; 99284; J3490

== ENCOUNTER 2021-01-14 16:50 | Outpatient (REF) | payer MEDICARE, MEDICAID, SELFPAY ==
[2021-01-21 07:30] LABS: EDDP-by GC-MS Negative ng/mL (Cutoff: 100); Methadone Interpretation Negative.; Methadone-by GC-MS Negative ng/mL (Cutoff: 100)
== END 2021-01-14 16:51 | disposition home or self-care (01) ==
LOC: NCHCN 16:50
PROVIDERS: PCP Family Medicine; Visit Provider Family Medicine
DX: Z51.81 Encounter for therapeutic drug level monitoring (principal)
CPT/HCPCS: 80358

== ENCOUNTER 2021-03-16 16:43 | Outpatient (REF) | payer MEDICARE, MEDICAID, SELFPAY ==
[2021-03-16 19:55] LABS: Abs Immature Grans 0.04 10^3/uL (0.0-0.06); Absolute Basophil Count 0.05 10^3/uL (0.0-0.2); Absolute Eosinophil Count 0.05 10^3/uL (0.0-0.7); Absolute Lymphocyte Count 2.03 10^3/uL (1.2-3.4); Absolute Neutrophil Count 4.46 10^3/uL (1.2-6.7); Basophils % 0.7; Eosinophils % 0.7; HCT 43.5 % (36.0-46.0); Immature Grans % 0.6; Lymphocytes % 28.5; MCH 30.8 pg (27.0-33.0); MCHC 32.2 % (32.0-36.0); MCV 95.6 fL (80-95); MPV 10.7 fL (8.0-11.0); Neutrophils % 62.5; Nucleated RBC 0 %; Platelet Count 223 10^3/uL (130-400); RBC 4.55 10^6/uL (3.93-5.22); RDW 13.1 % (11.7-14.6); RDW-SD 46.6 fL; WBC 7.13 10^3/uL (4.4-10.8)
[2021-03-16 20:01] LABS: ESR 8 mm/hr (0-30)
[2021-03-16 20:39] LABS: BUN 12 mg/dL (7-18); CREATININE 0.9 mg/dL (0.55-1.02); Calcium 9.1 mg/dL (8.5-10.1); Chloride 103 mmol/L (98-107); FREE T4 1.17 ng/dL (0.76-1.46); Glucose 167 mg/dL (74-106); Potassium 3.7 mmol/L (3.5-5.1); Sodium 139 mmol/L (136-145); TSH 0.24 uIU/mL (0.36-3.74)
[2021-03-16 20:41] LABS: C-Reactive Protein < 0.05 mg/dL (0.0-0.3)
[2021-03-18 11:05] LABS: Hepatitis C Ab w Rflx HCV PCR Negative (Negative)
== END 2021-03-16 16:44 | disposition home or self-care (01) ==
LOC: NCHCN 16:43
PROVIDERS: PCP Family Medicine; Visit Provider Family Medicine
DX: E03.9 Hypothyroidism, unspecified (principal); R61 Generalized hyperhidrosis; R23.8 Other skin changes; J44.9 Chronic obstructive pulmonary disease, unspecified; I10 Essential (primary) hypertension; M54.2 Cervicalgia; M54.5 Low back pain; Z00.00 Encounter for general adult medical examination without abnormal findings
CPT/HCPCS: 80048; 85652; 86803; 84439; 84443; 85025; 86140

== ENCOUNTER 2021-03-31 13:24 | Emergency (ER) | payer MEDICARE, MEDICAID, SELFPAY ==
[2021-03-31 13:49] VITALS: BP 129/67; PULSE 75; RESP 18; TEMP 36.6; O2SAT 97
--- NOTE | 2021-03-31 14:33 | ED.GENADUL_ITS ---
Discharge Plan Disposition Patient Disposition: HOME Condition: Good Discharge Details Clinical Impression: Close exposure to COVID-19 virus, Dog bite Primary Care Provider: Melanie Cheng V ED Provider: Gloria Askew Home Meds and New Rx's Prescriptions: Continued cyanocobalamin (vitamin B-12) [Vitamin B-12] 1,000 MCG tablet extended release 1,000 mcg PO DAILY RF: 0 aspirin 325 MG tablet 325 mg PO DAILY RF: 0 albuterol sulfate 8.5 GM HFA aerosol inhaler 2 inh Inhalation Q4H PRN PRNRF: 0 budesonide-formoterol [Symbicort] 60 PUFF HFA aerosol inhaler 1 inh Inhalation BID RF: 0 methocarbamol 500 MG tablet 500 mg PO BID RF: 0 venlafaxine 75 mg capsule,extended release 24hr 75 mg PO DAILY RF: 0 hydrocodone-acetaminophen 5-325 mg tablet 1 tab PO QHS PRNRF: 0 venlafaxine 150 mg capsule,extended release 24hr 150 mg PO DAILY RF: 0 levothyroxine 125 mcg tablet 125 mcg PO Q OTHER DAY RF: 0 losartan 25 mg tablet 50 mg PO DAILY RF: 0 omeprazole 20 mg capsule,delayed release(DR/EC) 20 mg PO DAILY RF: 0 levothyroxine 112 mcg tablet 112 mcg PO Q OTHER DAY RF: 0 Discharge Instructions Instructions: Animal Bite (ED) Additional Instructions: Continue to observe the rashes and bites, if you have spreading redness, fever, worsening pain, repeat reassessed I do not feel as though you need antibiotics at this time You are receiving a tetanus vaccine You do not need a rabies vaccine as this dog is able to be quarantined for the next 10 days, if there are any signs or symptoms of rabies as the dog is not able to be vaccinated yet then you will need a rabies vaccine, this has been reported You will need a Covid swab 7 days after exposure Should you have shortness of breath, low oxygen less than 90%, spreading redness, fever, or with any new or worsening complaints Discharge Data Discharge Date/Time-TO BE ENTERED AT DEPARTURE: 03/31/21 15:05 Medical Decision Making Patient appears well, there is no evidence of secondary infection, the dog bite from her niece's dog is able to be observed for 10 days, she is willing for a month old and she is young for rabies vaccine although no exposure to rabies noted, will be quarantined at home for 10 days of observation, no need to animal control Patient declines rabies vaccine point, her tetanus was updated She was expressed to Covid yesterday, she is instructed this is too early to test for it but she will schedule a Covid test in 7 days She given low threshold to return should she have new or worsening complaints As patient is 7 days post ndog bite, there is no indication for antibiotics at this time Medical Records Medical records reviewed: Yes I reviewed the patient's medical records. HPI General Mode of arrival: ambulatory . Date/Time Provider Initiated Documentation: 03/31/21 14:32 . Limitations to Documentation: no limitations . Information obtained by: patient . HPI Narrative: Missed 60-year-old female presents with dog bites to bilateral upper extremities. She also states that she was exposed to an indirect Covid yesterday. She denies any chest pain, shortness of breath, fever, chills. Denies any additional injuries. Tetanus is up-to-date. The bite from a puppy that is approximately 4-month old and I able to be rabies vaccinated. The dog is under quarantine or able to be observed and there is no indication for rabies vaccine at this time. Denies any strength or sensation changes. Mostly presented for a tetanus shot. Related Data Home Medications Medication Instructions Recorded Confirmed aspirin 325 mg PO DAILY 11/12/12 03/31/21 cyanocobalamin (vitamin B-12) 1,000 mcg PO DAILY 11/12/12 03/31/21 [Vitamin B-12] albuterol sulfate 2 inh INHALATION Q4H PRN PRN 03/21/15 03/31/21 budesonide-formoterol [Symbicort] 1 inh INHALATION BID 03/21/15 03/31/21 methocarbamol 500 mg PO BID 02/04/17 03/31/21 hydrocodone-acetaminophen 1 tab PO QHS PRN 12/27/20 03/31/21 levothyroxine 112 mcg PO Q OTHER DAY 12/27/20 03/31/21 levothyroxine 125 mcg PO Q OTHER DAY 12/27/20 03/31/21 losartan 50 mg PO DAILY 12/27/20 03/31/21 omeprazole 20 mg PO DAILY 12/27/20 03/31/21 venlafaxine 75 mg PO DAILY 12/27/20 03/31/21 venlafaxine 150 mg PO DAILY 12/27/20 03/31/21 Allergies Allergy/AdvReac Type Severity Reaction Status Date / Time No Known Allergies Allergy Unverified 03/31/21 14:00 General Stated Complaint: AnimalBite NAYE: 5 Review of Systems All systems reviewed & are unremarkable except as noted in HPI and below PFSH Social History Smoking/Tobacco Use Status: Current every day Tobacco Type: cigarettes Smoking risk assessment performed?: Yes Alcohol Intake: never Drug use: Occasionally Substance use type: marijuana Do you feel safe at home: Yes Do you feel safe in your relationship?: Yes Exam Resp Effort & Inspection: normal respiratory effort Cardio Rate: regular rate Neuro General: patient alert and patient oriented x3 Extrem Other: Numerous healing bite evans noted to bilateral forearms. No evidence of secondary infection. Superficial Distal pulses intact, strength and sensation intact Course Vital Signs Vital signs: Vital Signs Temperature 36.6 C 03/31/21 13:49 Pulse 75 03/31/21 13:49 Respiratory Rate 18 03/31/21 13:49 Blood Pressure 129/67 03/31/21 13:49 Pulse Oximetry 97 03/31/21 13:49 Temperature 36.6 C 03/31/21 13:49 Temperature Source Skin 03/31/21 13:49 Pulse 75 03/31/21 13:49 Respiratory Rate 18 03/31/21 13:49 Respiratory Effort 03/31/21 13:59 Blood Pressure 129/67 03/31/21 13:49 Blood Pressure Position Sitting 03/31/21 13:49 Pulse Oximetry 97 03/31/21 13:49 Oxygen Delivery Method Room Air 03/31/21 13:49 Oxygen Flow Rate 0 03/31/21 13:49 Pain Level 1 03/31/21 13:49
== END 2021-03-31 15:05 | disposition home or self-care (01) ==
PROVIDERS: Emergency Provider Physician Assistant; PCP Family Medicine
DX: S51.852A Open bite of left forearm, initial encounter (principal); S51.851A Open bite of right forearm, initial encounter; W54.0XXA Bitten by dog, initial encounter; Z20.822 Contact with and (suspected) exposure to COVID-19
CPT/HCPCS: 90471; 99284; 99283

== ENCOUNTER 2021-09-14 13:39 | Emergency (ER) | payer MEDICARE, MEDICAID, SELFPAY ==
[2021-09-14] VITALS (14 sets, daily range): BP systolic 126–166; BP diastolic 52–112; PULSE 59–132; RESP 20; TEMP 36.2; O2SAT 89–100
--- NOTE | 2021-09-14 14:45 | DI.RAD_ITS ---
Exam(s) XR PORTABLE CHEST AP EXAM: XR PORTABLE CHEST AP CLINICAL HISTORY: cough,sob. TECHNIQUE: 2D digital imaging was performed. COMPARISON: CR,XR XR CHEST 2V PA LATERAL from 12/27/2020 FINDINGS: LUNGS: Clear. No pleural abnormality seen. HEART: Normal. MEDIASTINUM: Normal. OTHER FINDINGS: None. IMPRESSION: No acute pulmonary findings. DATA REPOSITORY: RADIATION DOSE DELIVERED: Total DLP
--- NOTE | 2021-09-14 15:03 | ED.GENADUL_ITS ---
Discharge Plan Disposition Patient Disposition: HOME Condition: Stable Discharge Details Clinical Impression: URI (upper respiratory infection) Primary Care Provider: Melanie Cheng V ED Provider: Regina Miranda Home Meds and New Rx's Prescriptions: New prednisone 20 mg tablet 60 mg PO DAILY 5 Days Qty: 15 0RF doxycycline hyclate 100 mg tablet 100 mg PO BID 7 Days Qty: 14 0RF Continued cyanocobalamin (vitamin B-12) [Vitamin B-12] 1,000 MCG tablet extended release 1,000 mcg PO DAILY 0RF aspirin 325 MG tablet 325 mg PO DAILY 0RF albuterol sulfate 8.5 GM HFA aerosol inhaler 2 inh Inhalation Q4H PRN PRN0RF budesonide-formoterol [Symbicort] 60 PUFF HFA aerosol inhaler 1 inh Inhalation BID 0RF methocarbamol 500 MG tablet 500 mg PO BID 0RF venlafaxine 75 mg capsule,extended release 24hr 75 mg PO DAILY 0RF Label Comments: TAKE ONE CAPSULE BY MOUTH EVERY DAY WITH 150 MG CAPSULE hydrocodone-acetaminophen 5-325 mg tablet 1 tab PO QHS PRN0RF Label Comments: TAKE 1 TABLET BY MOUTH ONCE DAILY AT BEDTIME AND UP TO 5 ADDITIONAL TABLETS PER MONTH NEEDED FOR PAIN Rx Instructions: TAKE 1 TABLET BY MOUTH ONCE DAILY AT BEDTIME AND UP TO 5 ADDITIONAL TABLETS PER MONTH NEEDED FOR PAIN venlafaxine 150 mg capsule,extended release 24hr 150 mg PO DAILY 0RF levothyroxine 125 mcg tablet 125 mcg PO Q OTHER DAY 0RF Label Comments: TAKE 1 TABLET BY MOUTH EVERY OTHER DAY losartan 25 mg tablet 50 mg PO DAILY 0RF Label Comments: TAKE ONE TABLET BY MOUTH EVERY DAY omeprazole 20 mg capsule,delayed release(DR/EC) 20 mg PO DAILY 0RF Label Comments: TAKE 1 CAPSULE BY MOUTH ONCE DAILY levothyroxine 112 mcg tablet 112 mcg PO Q OTHER DAY 0RF Label Comments: TAKE 1 TABLET BY MOUTH EVERY OTHER DAY Discharge Instructions Instructions: Upper Respiratory Infection (ED) Additional Instructions: At this time chest x-ray does not show any evidence for pneumonia. I do suspect however you may have bronchitis or URI. Please take the prednisone 3 tablets daily x5 days to help decrease inflammation in your airway. Use the albuterol inhaler 1 or 2 puffs every 4-6 hours as needed for wheezing. If you do not feel better in the next 2 to 3 days please start the doxycycline antibiotic. Please eat yogurt or take a probiotic while on this medication. At this time your Covid test is still pending please continue to quarantine until the results of this test is known. Follow up with primary care provider in 3-5 days. Return to ED sooner if any worsening or concerns. Increase oral fluids. Please take Tylenol or Ibuprofen with food every 4-6 hours as needed for pain and swelling. Referrals: Melanie Cheng MD [Primary Care Provider] - 3 days Discharge Data Discharge Date/Time-TO BE ENTERED AT DEPARTURE: 09/14/21 17:43 Medical Decision Making <SANTIAGO Palma - Last Filed: 09/15/21 20:45> Patient is not hypoxic or tachypneic, she is resting comfortably in room, given Solu-Medrol and DuoNeb I think 1 troponin is reasonable given her symptoms have been persistent for the past 3 days Her EKG does not show significant acute abnormality I suspect she probably has bronchitis or new pneumonia clinically She has a send out Covid that is pending Pending D-dimer and troponin in addition to chest x-ray she will be signed out to Hafsa Lyn nurse practitioner <Regina Miranda - Last Filed: 09/14/21 18:07> Patient is not hypoxic or tachypneic, she is resting comfortably in room, given Solu-Medrol and DuoNeb I think 1 troponin is reasonable given her symptoms have been persistent for the past 3 days Her EKG does not show significant acute abnormality I suspect she probably has bronchitis or new pneumonia clinically She has a send out Covid that is pending Pending D-dimer and troponin in addition to chest x-ray she will be signed out to Hafsa Lyn, nurse practitioner [id number]: S[place]: Care assumed from provider (SANTIAGO Palma Please see their initial HPI, PE, and documentation. Discussed patient details and case and pending workup and disposition. Patient is hemodynamically stable, and alert and oriented. At the time of signout pending is a D-dimer, chest x-ray. At the time of signout D-dimer is 519 which is negative per the age-adjusted D-dimer. Troponin is within normal limits less than 50. VRAD XR Report: COMPARISON: CR XR CHEST 2V PA LATERAL 12/27/2020 12:10 PM FINDINGS: Lungs: Clear lungs. Pleural spaces: No sizable pleural effusion. No pneumothorax. Heart/Mediastinum: Cardiomediastinal silhouette is within normal limits. Bones/joints: No acute displaced fracture or dislocation. IMPRESSION: No acute cardiopulmonary process. Thank you for allowing us to participate in the care of your patient. Dictated and Authenticated by: Kenton Conti DO Chest x-ray is within normal limits no pneumonia or pneumothorax. Will give a 5-day stent of prednisone and an inhaler for possible URI/bronchitis. No elevated white count to suggest pneumonia. No pneumonia noted on x-ray. Covid test is pending at this time. I also did prescribe doxycycline x7 days if patient does not improve in the next couple of days or continues to worsen. Instructed to follow-up with PCP. Strict return instructions discussed. This text was generated using [employer] system, please disregard any oddities of phrase or misspellings. HPI <SANTIAGO Palma - Last Filed: 09/15/21 20:45> General Date/Time Provider Initiated Documentation: 09/14/21 13:52 . HPI Narrative: This 61-year-old female presents with report of chest tightness, cough, upper respiratory symptoms, and pleuritic pain. Denies any fever or chills. Denies prior history of coagulopathy. Has history of hypertension. Denies known history of coronary artery disease. Her symptoms have been present for the past 3 days. She states she has some mild shortness of breath. She denies any fever or chills. She denies any calf pain or swelling. She denies recent flights, surgeries, long drives. She does report a history of emphysema. She is on inhalers at home reportedly. She not been evaluated for this episode. She had a negative rapid antigen Covid test prior to arrival today. Related Data Home Medications Medication Instructions Recorded Confirmed aspirin 325 mg tablet 325 mg PO DAILY 11/12/12 09/14/21 cyanocobalamin (vitamin B-12) 1,000 mcg PO DAILY 11/12/12 09/14/21 1,000 mcg tablet,extended release (Vitamin B-12 ER) albuterol sulfate 90 mcg/actuation 2 inh INHALATION Q4H PRN PRN 03/21/15 09/14/21 aerosol inhaler budesonide-formoterol HFA 160 1 inh INHALATION BID 03/21/15 09/14/21 mcg-4.5 mcg/actuation aerosol inhaler (Symbicort) methocarbamol 500 mg tablet 500 mg PO BID 02/04/17 09/14/21 hydrocodone 5 mg-acetaminophen 325 1 tab PO QHS PRN 12/27/20 09/14/21 mg tablet levothyroxine 112 mcg tablet 112 mcg PO Q OTHER DAY 12/27/20 09/14/21 levothyroxine 125 mcg tablet 125 mcg PO Q OTHER DAY 12/27/20 09/14/21 losartan 25 mg tablet 50 mg PO DAILY 12/27/20 09/14/21 omeprazole 20 mg capsule,delayed 20 mg PO DAILY 12/27/20 09/14/21 release venlafaxine 150 mg 150 mg PO DAILY 12/27/20 09/14/21 capsule,extended release 24 hr venlafaxine 75 mg capsule,extended 75 mg PO DAILY 12/27/20 09/14/21 release 24 hr doxycycline hyclate 100 mg tablet 100 mg PO BID 7 Days #14 tab 09/14/21 prednisone 20 mg tablet 60 mg PO DAILY 5 Days #15 tab 09/14/21 Previous Rx's Medication Instructions Recorded doxycycline hyclate 100 mg tablet 100 mg PO BID 7 Days #14 tab 09/14/21 prednisone 20 mg tablet 60 mg PO DAILY 5 Days #15 tab 09/14/21 Allergies Allergy/AdvReac Type Severity Reaction Status Date / Time No Known Allergies Allergy Unverified 09/14/21 13:53 General Stated Complaint: RespSymp NAYE: 3 Review of Systems <SANTIAGO Palma - Last Filed: 09/15/21 20:45> All systems reviewed & are unremarkable except as noted in HPI and below PFSH <SANTIAGO Palma - Last Filed: 09/15/21 20:45> All Active Problems (Updated 09/14/21 @ 17:20 by Regina Miranda) Rib pain (Acute) Rash (Acute) Lingular pneumonia (Acute) Close exposure to COVID-19 virus (Acute) Dog bite (Acute) URI (upper respiratory infection) (Acute) Social History Smoking/Tobacco Use Status: Current every day Tobacco Type: cigarettes Smoking risk assessment performed?: Yes Alcohol Intake: never Drug use: Daily Substance use type: marijuana Do you feel safe at home: Yes Do you feel safe in your relationship?: Yes Exam <SANTIAGO Palma - Last Filed: 09/15/21 20:45> Const General: cooperative, comfortable and no acute distress Eyes Sclera: sclerae normal Chest Chest: normal inspection of the chest Resp Effort & Inspection: normal respiratory effort Auscultation: diminished lung sounds and wheezes Cardio Rate: regular rate Rhythm: regular rhythm GI Inspection: normal to inspection Skin General skin exam: no rashes or lesions noted Neuro General: patient alert and patient oriented x3 Extrem Other: no calf Swelling or tenderness, distal pulses intact Course <SANTIAGO Palma - Last Filed: 09/15/21 20:45> Vital Signs Vital signs: Vital Signs Temperature 36.2 C L 09/14/21 13:48 Pulse 84 09/14/21 13:48 Respiratory Rate 20 09/14/21 13:48 Blood Pressure 166/68 H 09/14/21 13:48 Pulse Oximetry 92 09/14/21 13:48 Temperature 36.2 C L 09/14/21 13:48 Temperature Source Skin 09/14/21 13:48 Pulse 84 09/14/21 13:48 Respiratory Rate 20 09/14/21 13:48 Respiratory Effort 09/14/21 13:48 Blood Pressure 166/68 H 09/14/21 13:48 Blood Pressure Position Sitting 09/14/21 13:48 Pulse Oximetry 92 09/14/21 13:48 Oxygen Delivery Method Room Air 09/14/21 13:48 Oxygen Flow Rate 0 09/14/21 13:48 Pain Level 6 09/14/21 13:48 Comment 09/14/21 13:48 Sign Out <SANTIAGO Palma - Last Filed: 09/15/21 20:45> Sign Out Data: Sign Out Comment: pending dimer, trop, cxr Last updated by Gloria Askew PA at 09/14/21 16:21
[2021-09-14] MEDS: methylPREDNISolone SUCC 125 MG VIAL IVP (15:10)
[2021-09-14] MEDS: Albuterol/Ipratropium 3 ML UPD VIAL UPD (15:11)
[2021-09-14 15:38] LABS: Abs Immature Grans 0.02 10^3/uL (0.0-0.06); Absolute Basophil Count 0.04 10^3/uL (0.0-0.2); Absolute Eosinophil Count 0.03 10^3/uL (0.0-0.7); Absolute Lymphocyte Count 1.64 10^3/uL (1.2-3.4); Absolute Monocyte Count 0.73 10^3/uL (0.1-0.8); Absolute Neutrophil Count 7.17 10^3/uL (1.2-6.7); Basophils % 0.4; Eosinophils % 0.3; HGB 14.4 g/dL (11.2-15.7); Immature Grans % 0.2; MCH 30.8 pg (27.0-33.0); MCHC 32.7 % (32.0-36.0); MCV 94.2 fL (80-95); MPV 10.7 fL (8.0-11.0); Monocytes % 7.6; Neutrophils % 74.5; Nucleated RBC 0 %; Platelet Count 190 10^3/uL (130-400); RBC 4.67 10^6/uL (3.93-5.22); RDW 12.2 % (11.7-14.6); RDW-SD 42.7 fL; WBC 9.63 10^3/uL (4.4-10.8)
[2021-09-14 15:50] LABS: ALT 17 U/L (14-59); AST 19 U/L (15-37); Albumin 3.5 g/dL (3.4-5.0); Alkaline Phosphatase 92 U/L (46-116); Anion Gap 4.8 mmol/L (3-11); BUN 11 mg/dL (7-18); Bilirubin, Total 0.5 mg/dL (0.2-1.0); CO2 33.2 mmol/L (21.0-32.0); CREATININE 0.7 mg/dL (0.55-1.02); Calcium 9.1 mg/dL (8.5-10.1); Chloride 98 mmol/L (98-107); Glucose 94 mg/dL (74-106); NT-proBNP 119 pg/mL (<300); Potassium 4.6 mmol/L (3.5-5.1); Sodium 136 mmol/L (136-145); Total Protein 7.7 g/dL (6.4-8.2); Troponin I < 50 ng/L (<or=60)
[2021-09-14 16:22] LABS: D-Dimer 519 ng/mlFEU (<500)
--- NOTE | 2021-09-14 17:11 | DI.VRAD_ITS ---
PROCEDURE INFORMATION: Exam: XR Chest Exam date and time: 09/14/2021 2:47 PM Age: 61 years old Clinical indication: Other: Cough SOB TECHNIQUE: Imaging protocol: XR of the chest. Views: 1 view. COMPARISON: CR XR CHEST 2V PA LATERAL 12/27/2020 12:10 PM FINDINGS: Lungs: Clear lungs. Pleural spaces: No sizable pleural effusion. No pneumothorax. Heart/Mediastinum: Cardiomediastinal silhouette is within normal limits. Bones/joints: No acute displaced fracture or dislocation. IMPRESSION: No acute cardiopulmonary process. Dictated and Authenticated by: Kenton Conti MD. Ordering:YEISON Castro MD
[2021-09-14] MEDS: Albuterol HFA 8 GM 60 PUFF INH IH (17:35)
[2021-09-16 13:05] LABS: COVID-19 RT-PCR UVMMC Result Negative (Negative)
== END 2021-09-14 17:43 | disposition home or self-care (01) ==
PROVIDERS: Physician Assistant; Emergency Provider Registered Nurse Emergency; PCP Family Medicine
DX: J06.9 Acute upper respiratory infection, unspecified (principal); R05.1 Acute cough; R06.02 Shortness of breath
CPT/HCPCS: 36415; 80053; 94640; 96374; 99284; U0003; U0005; 71045; 83880; 84484; 85025; 85379; J2930; J7620

== ENCOUNTER 2022-05-02 17:58 | Outpatient (REF) | payer MEDICARE, MEDICAID, SELFPAY ==
[2022-05-02 19:32] LABS: Abs Immature Grans 0.02 10^3/uL (0.0-0.06); Absolute Basophil Count 0.04 10^3/uL (0.0-0.2); Absolute Eosinophil Count 0.09 10^3/uL (0.0-0.7); Absolute Lymphocyte Count 1.83 10^3/uL (1.2-3.4); Absolute Monocyte Count 0.58 10^3/uL (0.1-0.8); Absolute Neutrophil Count 4.24 10^3/uL (1.2-6.7); Basophils % 0.6; Eosinophils % 1.3; HCT 43.1 % (36.0-46.0); HGB 14.6 g/dL (11.2-15.7); Immature Grans % 0.3; Lymphocytes % 26.9; MCH 31.3 pg (27.0-33.0); MCHC 33.9 % (32.0-36.0); MCV 93 fL (80-95); MPV 10.6 fL (8.0-11.0); Monocytes % 8.5; Neutrophils % 62.4; Platelet Count 234 10^3/uL (130-400); RBC 4.66 10^6/uL (3.93-5.22); RDW-SD 44.3 fL
[2022-05-02 19:40] LABS: ESR 15 mm/hr (0-30)
[2022-05-02 19:41] LABS: ALT 24 U/L (14-59); AST 21 U/L (15-37); Albumin 4.1 g/dL (3.4-5.0); Alkaline Phosphatase 75 U/L (46-116); Anion Gap 7.9 mmol/L (3-11); BUN 11 mg/dL (7-18); Bilirubin, Total 0.2 mg/dL (0.2-1.0); C-Reactive Protein 0.11 mg/dL (0.0-0.3); CO2 30.1 mmol/L (21.0-32.0); CREATININE 0.8 mg/dL (0.55-1.02); Calcium 9.2 mg/dL (8.5-10.1); Chloride 103 mmol/L (98-107); Estimated GFR 82.74 (mL/min/1.73m2); Glucose 83 mg/dL (74-106); Sodium 141 mmol/L (136-145); Total Protein 7.6 g/dL (6.4-8.2)
== END 2022-05-02 17:59 | disposition home or self-care (01) ==
LOC: NCHCN 17:58
PROVIDERS: PCP Family Medicine; Visit Provider Nurse Practitioner Family
DX: R10.31 Right lower quadrant pain (principal)
CPT/HCPCS: 80053; 85652; 85025; 86140

== ENCOUNTER 2022-05-24 15:46 | Emergency (ER) | payer MEDICARE, MEDICAID, SELFPAY ==
--- NOTE | 2022-05-24 15:45 | RT.EKG_ITS ---
APPROVED REPORT Exam: Resting ECG Reason for Exam: syncope Patient Location: E HR:67 bpm ECG Measurements Heart Rate 67 AXIS RI 153 P 75 QRSd 87 QRS 58 QT 407 T 73 QTc 429 Conclusion Sinus rhythm...normal P axis, V-rate 60- 99 Inferior infarct, old...Q >35mS, II III aVF
[2022-05-24 15:54] VITALS: BP 167/100; PULSE 82; RESP 18; TEMP 36.7; O2SAT 96
[2022-05-24 19:24] LABS: Abs Immature Grans 0.02 10^3/uL (0.0-0.06); Absolute Basophil Count 0.04 10^3/uL (0.0-0.2); Absolute Eosinophil Count 0.08 10^3/uL (0.0-0.7); Absolute Lymphocyte Count 2.28 10^3/uL (1.2-3.4); Absolute Monocyte Count 0.61 10^3/uL (0.1-0.8); Absolute Neutrophil Count 4.32 10^3/uL (1.2-6.7); Basophils % 0.5; Eosinophils % 1.1; HGB 15.3 g/dL (11.2-15.7); Immature Grans % 0.3; MCH 31.3 pg (27.0-33.0); MCV 92 fL (80-95); MPV 10.5 fL (8.0-11.0); Monocytes % 8.3; Neutrophils % 58.8; Platelet Count 210 10^3/uL (130-400); RBC 4.89 10^6/uL (3.93-5.22); RDW 12.9 % (11.7-14.6); RDW-SD 43.8 fL; WBC 7.35 10^3/uL (4.4-10.8)
[2022-05-24 19:43] LABS: ALT 13 U/L (14-59); AST 16 U/L (15-37); Alkaline Phosphatase 74 U/L (46-116); Anion Gap 5.6 mmol/L (3-11); BUN 12 mg/dL (7-18); Bilirubin, Total 0.3 mg/dL (0.2-1.0); CO2 34.4 mmol/L (21.0-32.0); CREATININE 0.9 mg/dL (0.55-1.02); Calcium 9.1 mg/dL (8.5-10.1); Chloride 101 mmol/L (98-107); Estimated GFR 71.83 (mL/min/1.73m2); Glucose 86 mg/dL (74-106); Potassium 3.7 mmol/L (3.5-5.1); Sodium 141 mmol/L (136-145); TSH (W/Ref FT4) 0.62 uIU/mL (0.36-3.74); Total Protein 7.4 g/dL (6.4-8.2); Troponin I < 50 ng/L (<or=60)
[2022-05-24 19:46] LABS: D-Dimer 401 ng/mlFEU (<500)
--- NOTE | 2022-05-24 20:00 | DI.CT_ITS ---
Exam(s) CT BRAIN NECK CTA EXAM: CT BRAIN NECK CTA CLINICAL HISTORY: syncope. TECHNIQUE: Imaging Protocol: Axial CT angiography was performed with multi-slice acquisition and mu lti-planar and/or 3D reconstructions. CONTRAST MATERIAL: Intravenous: Omnipaque 350 contrast volume:85 mL COMPARISON: CT CT CHEST PE ABD PELVIS W from 12/27/2020 FINDINGS: CT Head W/O and W: Ventricles and Extra axial spaces: Normal in size and morphology for the patient's age. Hemorrhage: None. Cerebral parenchyma: Normal. Midline shift: None. Brainstem/Cerebellum: Normal. Calvarium: Normal. Visualized Paranasal sinuses/Mastoids: Clear. Soft Tissues: Unremarkable. Enhancement: Unremarkable. CTA Neck W: Common Carotid: Right: No dissection, occlusion or significant stenosis. Left: No dissection, occlusion or significant stenosis. External Carotid: Right: No occlusion or significant stenosis. Left: No occlusion or significant stenosis. Internal Carotid: Right: No dissection, occlusion or significant stenosis. Left: No dissection, occlusion or significant stenosis. Mild atherosclerosis at the origin. Vertebral Artery: Right: No dissection, occlusion or significant stenosis. Left: No dissection, occlusion or significant stenosis. Lung Apices: Emphysematous changes are seen in the lung apices. Bones: Within normal limits for the patient's age. Soft Tissues: Normal. Thyroid gland: Unremarkable. CTA Brain W: Internal Carotid Arteries: Normal. Anterior Cerebral Arteries: Right: No aneurysm, occlusion or significant stenosis. Left: No aneurysm, occlusion or significant stenosis. Middle Cerebral Arteries: Right: No aneurysm, occlusion or significant stenosis. Left: No aneurysm, occlusion or significant stenosis. Posterior Cerebral Arteries: Right: No aneurysm, occlusion or significant stenosis. Left: No aneurysm, occlusion or significant stenosis. Vertebral Arteries: Right: No aneurysm, occlusion or significant stenosis. Left: No aneurysm, occlusion or significant stenosis. Basilar Artery: No aneurysm, occlusion or significant stenosis. IMPRESSION: 1. No large vessel occlusion or significant stenosis on the CT angiography of the head. 2. No acute intracranial process. 3. No occlusion or significant stenosis on the CT angiography of the neck. 4. Mild atherosclerosis at the origin of the left internal carotid artery. There is less than 50 per cent stenosis. RADIATION DOSE DELIVERED: 2,201.2mGy.cm Total DLP DATA REPOSITORY: All CT scans at this facility are submitted to the National Radiology Data Registry (NRDR) Dose Index Registry (DIR) with the [employer] ([employer]). RADIATION OPTIMIZATION: All CT scans at this facility use at least one of these dose optimization te chniques: automated exposure control; mA and/or kV adjustment per patient size (includes targeted exa ms where dose is matched to clinical indication); or iterative reconstruction.
[2022-05-24 20:20] LABS: Bilirubin Negative (Negative); Blood Negative (Negative); Clarity Clear (Clear); Glucose Negative (Negative); Ketones Negative (Negative); Leukocyte Esterase Negative (Negative); Nitrite Negative (Negative); Specific Gravity 1.015 (1.005-1.025); Urobilinogen 0.2 EU/dL (Up TO 0.2)
[2022-05-24] MEDS: Omnipaque 350 MG/ML 100 ML BTL IJ (21:24)
[2022-05-24] MEDS: Normal Saline Flush 10 ML SYR IVP (21:29)
--- NOTE | 2022-05-24 22:09 | DI.VRAD_ITS ---
PROCEDURE INFORMATION: Exam: CTA Head Without And With Contrast, Arteriography Exam date and time: 05/24/2022 9:21 PM Age: 61 years old Clinical indication: Stroke-like symptoms; Syncope/collapse TECHNIQUE: Imaging protocol: Computed tomographic angiography of the head without and with contrast. Exam focused on the arteries. 3D rendering (Not supervised by radiologist): MIP and/or 3D reconstructed images were created by the technologist. Radiation optimization: All CT scans at this facility use at least one of these dose optimization techniques: automated exposure control; mA and/or kV adjustment per patient size (includes targeted exams where dose is matched to clinical indication); or iterative reconstruction. Contrast material: OMNIPAQUE 350; Contrast volume: 85 ml; Contrast route: INTRAVENOUS (IV); Other technique: STROKE PROTOCOL was implemented. COMPARISON: MR CERVICAL SPINE WO 12/21/2020 3:21 PM FINDINGS: ANTERIOR CIRCULATION: Right internal carotid artery: Intracranial segment is patent with no significant stenosis or occlusion. No aneurysm. Right middle cerebral artery: No occlusion or significant stenosis. No aneurysm. Right anterior cerebral artery: No occlusion or significant stenosis. No aneurysm. Left internal carotid artery: Intracranial segment is patent with no significant stenosis. No aneurysm. Left middle cerebral artery: No occlusion or significant stenosis. No aneurysm. Left anterior cerebral artery: No occlusion or significant stenosis. No aneurysm. POSTERIOR CIRCULATION: Right vertebral artery: No occlusion or significant stenosis. No aneurysm. Left vertebral artery: No occlusion or significant stenosis. No aneurysm. Basilar artery: No occlusion or significant stenosis. No aneurysm. Right posterior cerebral artery: No occlusion or significant stenosis. No aneurysm. Left posterior cerebral artery: No occlusion or significant stenosis. No aneurysm. HEAD: Brain: Normal. No hemorrhage. Unremarkable white matter. No mass effect. Cerebral ventricles: Normal. No ventriculomegaly. Bones/joints: Unremarkable. No acute fracture. Paranasal sinuses: Visualized sinuses are normal. No fluid levels. Mastoid air cells: Visualized mastoids are normal. No mastoid effusion. Soft tissues: Unremarkable. IMPRESSION: No large vessel occlusion. Unremarkable CT head. ASSESSMENT: ASPECTS ([place] Stroke Program Early CT Score) is 10. PROCEDURE INFORMATION: Exam: CTA Neck With Contrast Exam date and time: 05/24/2022 9:21 PM Age: 61 years old Clinical indication: Stroke-like symptoms; Syncope/collapse TECHNIQUE: Imaging protocol: Computed tomographic angiography of the neck with contrast. 3D rendering (Not supervised by radiologist): MIP and/or 3D reconstructed images were created by the technologist. Radiation optimization: All CT scans at this facility use at least one of these dose optimization techniques: automated exposure control; mA and/or kV adjustment per patient size (includes targeted exams where dose is matched to clinical indication); or iterative reconstruction. Contrast material: OMNIPAQUE 350; Contrast volume: 85 ml; Contrast route: INTRAVENOUS (IV); COMPARISON: MR CERVICAL SPINE WO 12/21/2020 3:21 PM FINDINGS: Right common carotid artery: No dissection or occlusion. [id number] soft atherosclerotic plaque along the medial wall of the distal right common carotid artery, causing less than 50% stenosis. Mild atherosclerotic calcifications of the carotid bulb. Right internal carotid artery: No stenosis of the extracranial segment. No dissection or occlusion. Right external carotid artery: No occlusion or stenosis of the origin. Left common carotid artery: No stenosis. No dissection or occlusion. Left internal carotid artery: No stenosis of the extracranial segment. No dissection or occlusion. Left external carotid artery: No occlusion or stenosis of the origin. Right vertebral artery: No stenosis. No dissection or occlusion. Left vertebral artery: No stenosis. No dissection or occlusion. Soft tissues: Normal. No significant soft tissue swelling. Bones/joints: No acute fracture. Lungs: Mild centrilobular emphysematous changes are present. IMPRESSION: 1. No evidence of occlusion or hemodynamically significant carotid or vertebral artery stenosis. 2. [id number] soft atherosclerotic plaque along the medial wall of the distal right common carotid artery, causing less than 50% stenosis. 3. Mild centrilobular emphysematous changes are present. REFERENCES: NASCET CRITERIA. The degree of stenosis in the cervical segment of the internal carotid artery is based on NASCET criteria. Normal is no stenosis. Mild is less than 50% stenosis. Moderate is 50-69% stenosis. Severe is 70% to 99% stenosis. Total occlusion is no detectable patent lumen. Dictated and Authenticated by: Nathen Pittman MD. Ordering:MARKOS Erazo MD
--- NOTE | 2022-05-24 22:37 | ED.GENADUL_ITS ---
Discharge Plan Disposition Patient Disposition: HOME Condition: Good Discharge Details Clinical Impression: Episode of syncope Primary Care Provider: Melanie Cheng V ED Provider: Castro Mejia Home Meds and New Rx's Prescriptions: Continued cyanocobalamin (vitamin B-12) [Vitamin B-12] 1,000 MCG tablet extended release 1,000 mcg PO DAILY aspirin 325 MG tablet 325 mg PO DAILY albuterol sulfate 8.5 GM HFA aerosol inhaler 2 inh Inhalation Q4H PRN PRN budesonide-formoterol [Symbicort] 60 PUFF HFA aerosol inhaler 1 inh Inhalation BID methocarbamol 500 MG tablet 500 mg PO BID venlafaxine 75 mg capsule,extended release 24hr 75 mg PO DAILY Label Comments: TAKE ONE CAPSULE BY MOUTH EVERY DAY WITH 150 MG CAPSULE hydrocodone-acetaminophen 5-325 mg tablet 1 tab PO QHS PRN Label Comments: TAKE 1 TABLET BY MOUTH ONCE DAILY AT BEDTIME AND UP TO 5 ADDITIONAL TABLETS PER MONTH NEEDED FOR PAIN Rx Instructions: TAKE 1 TABLET BY MOUTH ONCE DAILY AT BEDTIME AND UP TO 5 ADDITIONAL TABLETS PER MONTH NEEDED FOR PAIN venlafaxine 150 mg capsule,extended release 24hr 150 mg PO DAILY levothyroxine 125 mcg tablet 125 mcg PO Q OTHER DAY Label Comments: TAKE 1 TABLET BY MOUTH EVERY OTHER DAY losartan 25 mg tablet 50 mg PO DAILY Label Comments: TAKE ONE TABLET BY MOUTH EVERY DAY omeprazole 20 mg capsule,delayed release(DR/EC) 20 mg PO DAILY Label Comments: TAKE 1 CAPSULE BY MOUTH ONCE DAILY levothyroxine 112 mcg tablet 112 mcg PO Q OTHER DAY Label Comments: TAKE 1 TABLET BY MOUTH EVERY OTHER DAY Discharge Instructions Instructions: Syncope (ED) Additional Instructions: At this time your work-up has been unremarkable for any worrisome findings. If you develop any new or significant worsening of symptoms please return immediately to the emergency department for reassessment. Otherwise follow-up with your primary care provider for reassessment and further tests or evaluation as needed. Referrals: Melanie Cheng MD [Primary Care Provider] - 5 days Discharge Data Discharge Date/Time-TO BE ENTERED AT DEPARTURE: 05/24/22 22:45 Medical Decision Making Patient presenting to the emergency department for chief complaint of syncopal episode. Patient states Monday after noon and later evening she had been out running errands and had pulled in her driveway when she had a possible syncopal episode. She states she was sitting in her car for an unknown amount of time. Patient denies any headache, focal neurological symptoms, chest pain shortness of breath or other symptoms. She does state that that day she had not eaten well and had went significant amount of time with no food intake. Patient otherwise recovered well after getting inside the house and eating and has had no further episodes or symptoms since. Physical exam is unremarkable for any focal neurological findings. Please see physician interpretation for interpretation of EKG that shows sinus rhythm and otherwise no worrisome findings are noted on my review. Labs are performed and are overall unremarkable CBC with no significant anemia, negative D-dimer, slightly elevated carbon dioxide but otherwise nondiagnostic CMP, negative troponin, TSH is within normal range. Urinalysis is also unremarkable. CTA of head brain and neck shows no worrisome acute findings. There is some noted atherosclerosis since but otherwise unremarkable. Patient reassessed and states no change in symptoms denies pain discomfort or again focal findings. Will discharge patient to follow-up with primary care provider for further reassessment as needed and patient was informed to return the emergency department for return of symptoms. After discussion of diagnosis and plan of care patient has no further needs, questions, or concerns and states clear understanding to return to the emergency department for any worsening symptoms. This documentation was generated using [employer] dictation system, please disregard any oddities of phrase or misspellings. Imaging Data Radiologic Study: Imaging: CT Scan Radiologist's impression: FINDINGS: ANTERIOR CIRCULATION: Right internal carotid artery: Intracranial segment is patent with no significant stenosis or occlusion. No aneurysm. Right middle cerebral artery: No occlusion or significant stenosis. No aneurysm. Right anterior cerebral artery: No occlusion or significant stenosis. No aneurysm. Left internal carotid artery: Intracranial segment is patent with no significant stenosis. No aneurysm. Left middle cerebral artery: No occlusion or significant stenosis. No aneurysm. Left anterior cerebral artery: No occlusion or significant stenosis. No aneurysm. POSTERIOR CIRCULATION: Right vertebral artery: No occlusion or significant stenosis. No aneurysm. Left vertebral artery: No occlusion or significant stenosis. No aneurysm. Basilar artery: No occlusion or significant stenosis. No aneurysm. Right posterior cerebral artery: No occlusion or significant stenosis. No aneurysm. Left posterior cerebral artery: No occlusion or significant stenosis. No aneurysm. HEAD: Brain: Normal. No hemorrhage. Unremarkable white matter. No mass effect. Cerebral ventricles: Normal. No ventriculomegaly. Bones/joints: Unremarkable. No acute fracture. Paranasal sinuses: Visualized sinuses are normal. No fluid levels. Mastoid air cells: Visualized mastoids are normal. No mastoid effusion. Soft tissues: Unremarkable. IMPRESSION: No large vessel occlusion. Unremarkable CT head. ASSESSMENT: ASPECTS ([place] Stroke Program Early CT Score) is 10. PROCEDURE INFORMATION: Exam: CTA Neck With Contrast Exam date and time: 05/24/2022 9:21 PM Age: 61 years old Clinical indication: Stroke-like symptoms; Syncope/collapse TECHNIQUE: Imaging protocol: Computed tomographic angiography of the neck with contrast. 3D rendering (Not supervised by radiologist): MIP and/or 3D reconstructed images were created by the technologist. Radiation optimization: All CT scans at this facility use at least one of these dose optimization techniques: automated exposure control; mA and/or kV adjustment per patient size (includes targeted exams where dose is matched to clinical indication); or iterative reconstruction. Contrast material: OMNIPAQUE 350; Contrast volume: 85 ml; Contrast route: INTRAVENOUS (IV); COMPARISON: MR CERVICAL SPINE WO 12/21/2020 3:21 PM FINDINGS: Right common carotid artery: No dissection or occlusion. [id number] soft atherosclerotic plaque along the medial wall of the distal right common carotid artery, causing less than 50% stenosis. Mild atherosclerotic calcifications of the carotid bulb. Right internal carotid artery: No stenosis of the extracranial segment. No dissection or occlusion. Right external carotid artery: No occlusion or stenosis of the origin. Left common carotid artery: No stenosis. No dissection or occlusion. Left internal carotid artery: No stenosis of the extracranial segment. No dissection or occlusion. Left external carotid artery: No occlusion or stenosis of the origin. Right vertebral artery: No stenosis. No dissection or occlusion. Left vertebral artery: No stenosis. No dissection or occlusion. Soft tissues: Normal. No significant soft tissue swelling. Bones/joints: No acute fracture. Lungs: Mild centrilobular emphysematous changes are present. IMPRESSION: 1. No evidence of occlusion or hemodynamically significant carotid or vertebral artery stenosis. 2. [id number]-[id number] soft atherosclerotic plaque along the medial wall of the distal right common carotid artery, causing less than 50% stenosis. 3. Mild centrilobular emphysematous changes are present. Lab Data Lab results reviewed: Yes I reviewed the patient's lab results. HPI General Mode of arrival: ambulatory . Date/Time Provider Initiated Documentation: 05/24/22 17:16 . Limitations to Documentation: no limitations . Information obtained by: patient and RN notes reviewed . History of Present Illness 61 year old F presents to the emergency department with the chief complaint of Syncope, Quality is described as other (Denies pain or discomf ort), Patient started experiencing this day(s) (4) and it has been now resolved. No relieving factors improve symptom(s), Eating worsens symptoms (Had not eaten that day) . Patient notes no other symptoms.. Patient did receive the following treatments prior to arrival, none Related Data Home Medications Medication Instructions Recorded Confirmed aspirin 325 mg tablet 325 mg PO DAILY 11/12/12 09/14/21 cyanocobalamin (vitamin B-12) 1,000 mcg PO DAILY 11/12/12 09/14/21 1,000 mcg tablet,extended release (Vitamin B-12 ER) albuterol sulfate 90 mcg/actuation 2 inh inhalation Q4H PRN PRN 03/21/15 09/14/21 aerosol inhaler budesonide-formoterol HFA 160 1 inh inhalation BID 03/21/15 09/14/21 mcg-4.5 mcg/actuation aerosol inhaler (Symbicort) methocarbamol 500 mg tablet 500 mg PO BID 02/04/17 09/14/21 hydrocodone 5 mg-acetaminophen 325 1 tab PO QHS PRN 12/27/20 09/14/21 mg tablet levothyroxine 112 mcg tablet 112 mcg PO Q OTHER DAY 12/27/20 09/14/21 levothyroxine 125 mcg tablet 125 mcg PO Q OTHER DAY 12/27/20 09/14/21 losartan 25 mg tablet 50 mg PO DAILY 12/27/20 09/14/21 omeprazole 20 mg capsule,delayed 20 mg PO DAILY 12/27/20 09/14/21 release venlafaxine 150 mg 150 mg PO DAILY 12/27/20 09/14/21 capsule,extended release 24 hr venlafaxine 75 mg capsule,extended 75 mg PO DAILY 12/27/20 09/14/21 release 24 hr Allergies Allergy/AdvReac Type Severity Reaction Status Date / Time No Known Allergies Allergy Unverified 09/14/21 13:53 General Stated Complaint: AMS/LOC NAYE: 3 Review of Systems Constitutional Constitutional: Denies body ache(s), Denies chills, Denies fever(s), Denies frequent falls and Denies headache(s) Eyes Eyes: Denies change in vision ENT Ears, Nose, Mouth, and Throat: Denies dizziness and Denies headache(s) Cardiovascular Cardiovascular: Denies chest pain and Reports syncope Respiratory Respiratory: Reports system reviewed and no additional complaints, except as documented Gastrointestinal Gastrointestinal: Denies abdominal pain, Denies nausea and Denies vomiting Musculoskeletal Musculoskeletal: Reports system reviewed and no additional complaints, except as documented Neurologic Neurologic: Reports as per HPI, Denies dizziness, Reports syncope, Denies frequent falls, Denies headache(s), Denies sensory deficit and Denies paresthesias PFSH All Active Problems (Updated 05/24/22 @ 22:42 by Castro Mejia NP) Rib pain (Acute) Rash (Acute) Lingular pneumonia (Acute) Close exposure to COVID-19 virus (Acute) Dog bite (Acute) Episode of syncope (Chronic) Social History Smoking/Tobacco Use Status: Current every day Tobacco Type: cigarettes Smoking risk assessment performed?: Yes Alcohol Intake: never Drug use: Daily Substance use type: marijuana Do you feel safe at home: Yes Do you feel safe in your relationship?: Yes Exam Const General: cooperative, healthy appearing, no acute distress and well groomed Orientation: alert, awake and oriented x3 HENMT Head: normal to inspection Ears: hearing grossly normal bilaterally and TM's normal bilaterally Mouth: oral mucosae normal and moist mucous membranes Throat: posterior oropharynx normal Eyes Visual Herrera: normal visual herrera by confrontation Alignment and Position: alignment normal Periorbital: periorbital findings normal Eyelids: eyelids normal Sclera: sclerae normal Cornea: corneas normal Pupils: PERRL EOM: EOM intact bilaterally Neck Neck: normal visual inspection, full ROM, no lymphadenopathy and no meningeal signs Resp Effort & Inspection: normal respiratory effort and able to speak in complete sentences Auscultation: clear to auscultation bilaterally Cardio Rate: regular rate Rhythm: regular rhythm Heart Sounds: S1 normal and S2 normal Neuro General: patient alert, patient awake, patient oriented x3, gait normal, tone normal, moves all extremities, CN's II-XI intact bilaterally and not confused Cognition: normal cognition Speech: speech normal Motor: muscle tone normal throughout, strength 5/5 throughout, no pronator d rift, no movement abnormalities noted and no fasciculations Sensory Exam: no sensory deficits noted Coordination: [id number]-od-[id number] test normal, Romberg test normal, Does not sway with eyes open, rapid alternating movement UE normal and rapid alternating movement LE normal Course Vital Signs Vital signs: Vital Signs Temperature 36.7 C 05/24/22 15:54 Pulse 82 05/24/22 15:54 Respiratory Rate 18 05/24/22 15:54 Blood Pressure 167/100 H 05/24/22 15:54 Pulse Oximetry 96 05/24/22 15:54 Temperature 36.7 C 05/24/22 15:54 Temperature Source Tympanic 05/24/22 15:54 Pulse 82 05/24/22 15:54 Respiratory Rate 18 05/24/22 15:54 Respiratory Effort 05/24/22 15:59 Respiratory Depth Normal 05/24/22 15:59 Respiratory Pattern Normal 05/24/22 15:59 Blood Pressure 167/100 H 05/24/22 15:54 Blood Pressure Position Supine 05/24/22 15:54 Pulse Oximetry 96 05/24/22 15:54 Oxygen Delivery Method Room Air 05/24/22 15:54 Oxygen Flow Rate 0 05/24/22 15:54 Pain Level 0 05/24/22 15:54 Lab/Test Results Lab/Test Results: Laboratory Tests Range/Units 05/24/22 05/24/22 05/24/22 18:20 18:20 18:20 WBC Cancelled RBC Cancelled Hgb Cancelled Hct Cancelled MCV Cancelled MCH Cancelled MCHC Cancelled RDW Cancelled Plt Count Cancelled MPV Cancelled Immature Gran % Cancelled Neutrophils % Cancelled Band Neutrophils % Cancelled Lymphocytes % Cancelled Atypical Lymphs % Cancelled Monocytes % Cancelled Eosinophils % Cancelled Basophils % Cancelled Metamyelocytes % Cancelled Myelocytes % Cancelled Promyelocytes % Cancelled Other Cells % Cancelled Nucleated RBC % Cancelled Absolute Neutrophils Cancelled Absolute Lymphocytes Cancelled Absolute Monocytes Cancelled Absolute Eosinophils Cancelled Absolute Basophils Cancelled RBC Morphology Cancelled Polychromasia Cancelled Hypochromasia Cancelled Poikilocytosis Cancelled Basophilic Stippling Cancelled Anisocytosis Cancelled Microcytosis Cancelled Macrocytosis Cancelled Spherocytes Cancelled Tear Drop Cells Cancelled Ovalocytes Cancelled Stomatocytes Cancelled [place] Bodies Cancelled Jenifer Cells/Echinocytes Cancelled Acanthocytes (Spur) Cancelled Schistocytes Cancelled D-Dimer Cancelled Sodium Cancelled Potassium Cancelled Chloride Cancelled Carbon Dioxide Cancelled Anion Gap Cancelled BUN Cancelled Creatinine Cancelled Est GFR (CKD-EPI 2020) Cancelled Glucose Cancelled Calcium Cancelled Magnesium Cancelled Total Bilirubin Cancelled AST Cancelled ALT Cancelled Alkaline Phosphatase Cancelled Troponin I Cancelled Total Protein Cancelled Albumin Cancelled TSH Cancelled Urine Color (Yellow) Urine Clarity (Clear) Urine pH (5-8) Ur Specific [place] (1.005-1.025) Urine Protein (Negative) mg/dL Urine Ketones (Negative) mg/dL Urine Blood (Negative) Urine Nitrite (Negative) Urine Bilirubin (Negative) Urine Urobilinogen (Up TO 0.2) EU/dL Ur Leukocyte Esterase (Negative) Urine Glucose (Negative) mg/dL Range/Units 05/24/22 05/24/22 05/24/22 19:05 19:05 19:05 WBC 7.35 RBC 4.89 Hgb 15.3 Hct 45.0 MCV 92 MCH 31.3 MCHC 34.0 RDW 12.9 Plt Count 210 MPV 10.5 Immature Gran % 0.3 Neutrophils % 58.8 Band Neutrophils % Lymphocytes % 31.0 Atypical Lymphs % Monocytes % 8.3 Eosinophils % 1.1 Basophils % 0.5 Metamyelocytes % Myelocytes % Promyelocytes % Other Cells % Nucleated RBC % 0.0 Absolute Neutrophils 4.32 Absolute Lymphocytes 2.28 Absolute Monocytes 0.61 Absolute Eosinophils 0.08 Absolute Basophils 0.04 RBC Morphology Polychromasia Hypochromasia Poikilocytosis Basophilic Stippling Anisocytosis Microcytosis Macrocytosis Spherocytes Tear Drop Cells Ovalocytes Stomatocytes [place] Bodies [place] Cells/Echinocytes Acanthocytes (Spur) Schistocytes D-Dimer 401 Sodium 141 Potassium 3.7 Chloride 101 Carbon Dioxide 34.4 H Anion Gap 5.6 BUN 12 Creatinine 0.9 Est GFR (CKD-EPI 2020) 71.83 Glucose 86 Calcium 9.1 Magnesium 2.0 Total Bilirubin 0.3 AST 16 ALT 13 L Alkaline Phosphatase 74 Troponin I < 50 Total Protein 7.4 Albumin 4.0 TSH 0.62 Urine Color (Yellow) Urine Clarity (Clear) Urine pH (5-8) Ur Specific [place] (1.005-1.025) Urine Protein (Negative) mg/dL Urine Ketones (Negative) mg/dL Urine Blood (Negative) Urine Nitrite (Negative) Urine Bilirubin (Negative) Urine Urobilinogen (Up TO 0.2) EU/dL Ur Leukocyte Esterase (Negative) Urine Glucose (Negative) mg/dL Range/Units 05/24/22 20:10 WBC RBC Hgb Hct MCV MCH MCHC RDW Plt Count MPV Immature Gran % Neutrophils % Band Neutrophils % Lymphocytes % Atypical Lymphs % Monocytes % Eosinophils % Basophils % Metamyelocytes % Myelocytes % Promyelocytes % Other Cells % Nucleated RBC % Absolute Neutrophils Absolute Lymphocytes Absolute Monocytes Absolute Eosinophils Absolute Basophils RBC Morphology Polychromasia Hypochromasia Poikilocytosis Basophilic Stippling Anisocytosis Microcytosis Macrocytosis Spherocytes Tear Drop Cells Ovalocytes Stomatocytes [place] Bodies Jenifer Cells/Echinocytes Acanthocytes (Spur) Schistocytes D-Dimer Sodium Potassium Chloride Carbon Dioxide Anion Gap BUN Creatinine Est GFR (CKD-EPI 2020) Glucose Calcium Magnesium Total Bilirubin AST ALT Alkaline Phosphatase Troponin I Total Protein Albumin TSH Urine Color (Yellow) Yellow Urine Clarity (Clear) Clear Urine pH (5-8) 7.0 Ur Specific [place] (1.005-1.025) 1.015 Urine Protein (Negative) mg/dL Negative Urine Ketones (Negative) mg/dL Negative Urine Blood (Negative) Negative Urine Nitrite (Negative) Negative Urine Bilirubin (Negative) Negative Urine Urobilinogen (Up TO 0.2) EU/dL 0.2 Ur Leukocyte Esterase (Negative) Negative Urine Glucose (Negative) mg/dL Negative
[2022-05-24 22:43] VITALS: BP 124/101; PULSE 84; RESP 16; TEMP 36.3; O2SAT 98
--- NOTE | 2022-05-25 00:20 | NUR.NOTE ---
Referral faxed to [facility] Dr Cheng to f/u within a week for Syncopal episode.Nursing Note:
== END 2022-05-24 22:45 | disposition home or self-care (01) ==
PROVIDERS: Emergency Provider Nurse Practitioner Family; PCP Family Medicine
DX: R55 Syncope and collapse (principal); I70.90 Unspecified atherosclerosis; R79.81 Abnormal blood-gas level
CPT/HCPCS: 70496; 70498; 80053; 93005; 99285; 81003; 83735; 84443; 84484; 85025; 85379; 93010; J3490

== ENCOUNTER → 2022-05-30 01:48 | Outpatient (CLI) | payer MEDICARE, MEDICAID, SELFPAY ==
--- NOTE | 2022-05-30 13:45 | DI.CT_ITS ---
Exam(s) CT ABDOMEN PELVIS W EXAM: CT ABDOMEN PELVIS W CLINICAL HISTORY: RUQ PAIN, R10.11; RLQ PAIN, R10.31. TECHNIQUE: Imaging Protocol: Axial computed tomography images with coronal and sagittal reformatted images were created and reviewed CONTRAST MATERIAL: Intravenous: Omnipaque 350 Contrast volume:100 ml Oral: yes 900 mm barium COMPARISON: CT CT BRAIN NECK CTA from 05/24/2022 FINDINGS: ABDOMEN: Lung Bases: Normal where visualized. Liver: Normal density. No measurable mass. Gallbladder and biliary tract: No radiodense calculus or dilation. Pancreas: Normal density, no abnormal calcifications or inflammatory process. Spleen: Normal. Kidneys: Normal size, contour and axis. No radiodense stones or obstructive uropathy. No masses seen. Adrenal glands: No masses seen. Abdominal Aorta: Abdominal portion non-dilated. PELVIS: Bladder: No gross wall thickening. No calculi.No focal mass. Bowel: Large quantity of stool seen from cecum through descending colon. Sigmoid diverticulosis. No evidence of diverticulitis. No obstruction or bowel wall thickening. Appendix normal. Peritoneal cavity: No ascites, collection or mesenteric inflammatory response. Bones: Degenerative disc changes and scoliosis. Reproductive organs: Status post hysterectomy. Lymph nodes: Unremarkable. Impression: Large quantity of fecal material. Sigmoid diverticulosis without evidence of diverticulitis. RADIATION DOSE DELIVERED: 697.73mGy.cm Total DLP DATA REPOSITORY: All CT scans at this facility are submitted to the National Radiology Data Registry (NRDR) Dose Index Registry (DIR) with the [employer] (ACR). RADIATION OPTIMIZATION: All CT scans at this facility use at least one of these dose optimization te chniques: automated exposure control; mA and/or kV adjustment per patient size (includes targeted exa ms where dose is matched to clinical indication); or iterative reconstruction.
[2022-05-30] MEDS: Omnipaque 350 MG/ML 100 ML BTL IJ (13:59)
[2022-05-30] MEDS: Barium Sulfate 2% W/V-Berry Smoothie 450 ML BTL PO (14:04)
[2022-05-30] MEDS: Normal Saline - Diluent 50 ML VIAL IJ (14:05)
== END ==
PROVIDERS: PCP Family Medicine; Visit Provider Nurse Practitioner Family
DX: K57.30 Diverticulosis of large intestine without perforation or abscess without bleeding (principal)
CPT/HCPCS: 74177; J3490

== ENCOUNTER → 2022-06-21 02:26 | Outpatient (CLI) | payer MEDICARE, MEDICAID, SELFPAY ==
--- NOTE | 2022-06-21 15:15 | DI.CTLCSR_ITS ---
Exam(s) CT CHEST LUNG CANCER SCREEN EXAM: CT CHEST LUNG CANCER SCREEN CLINICAL HISTORY: CIGARETTE SMOKER, F17.210; LUNG NODULE, R91.8 TECHNIQUE: Imaging Protocol: Axial computed tomography images with coronal and sagittal reformatted images were created and reviewed COMPARISON: CT CT CHEST LUNG CANCER SCREEN from 08/28/[address] CHEST PE ABD PELVIS W from 12/27/2020 FINDINGS: Tracheobronchial tree: Patent where visualized. Pulmonary parenchyma: There does appear to be a small reticular nodular infiltrate in the left lingul a. No focal consolidating infiltrates are seen. Emphysematous changes are present in the lungs. Lung Nodules: The nodule previously identified in the left lingula is not seen on the current examina tion. No suspicious pulmonary nodules are seen. Mediastinum and [place]: No dominant adenopathy or fluid collection. The esophagus is unremarkable. Thyroid gland: Unremarkable. Lymph nodes: Unremarkable. Pleura: No effusion or pneumothorax. Heart: The heart is not dilated. Mild coronary artery calcification is present. No pericardial effus ion. Aorta: Atherosclerosis is present. There is ectasia of the ascending thoracic aorta measuring up to 4 cm in diameter. Upper abdomen: Unremarkable. Soft Tissues: Unremarkable. Bones: Within normal limits. IMPRESSION: 1. No pulmonary nodules. 2. Question of a small reticular nodular infiltrate in the left lingula. This may reflect small airw ays disease. No focal consolidating infiltrates are seen. Please correlate clinically. Lung RADS Cat 1 - Negative: No nodules and definitely benign nodules Modifier S Lung-RADS 1.0 CATEGORIES: Category 0 - Prior chest CT exam(s) being located for comparison. Category 1 - Annual screening in 12 months. No nodules or definitely benign nodules. Category 2 - Annual screening in 12 months. Benign appearance. Nodules with low likelihood of becomin g active cancer. Category 3 - 6-month follow-up. Probably benign. Short-term follow-up suggested. Nodules with low lik elihood of becoming active cancer. Category 4A - 3-month follow-up and CT/PET if >8 mm in size. Suspicious finding. Findings which requi re additional testing. Category 4B - Findings which require additional testing and tissue sampling. Suspicious finding. Category 4X - Category 3 or 4 nodules with additional features or imaging findings that increases the suspicion of malignancy. Modifier S- Potentially clinically significant finding. (Non lung cancer) RADIATION DOSE DELIVERED: 80.66mGy.cm Total DLP 1.84mGy!Error CTDIvol 80.66mGy.cmTotal DLP 1.84mGy!Error CTDIvol DATA REPOSITORY: All CT scans at this facility are submitted to the National Radiology Data Registry (NRDR) Dose Index Registry (DIR) with the [employer] (ACR). RADIATION OPTIMIZATION: All CT scans at this facility use at least one of these dose optimization te chniques: automated exposure control; mA and/or kV adjustment per patient size (includes targeted exa ms where dose is matched to clinical indication); or iterative reconstruction.
== END ==
PROVIDERS: PCP Family Medicine; Visit Provider Family Medicine
DX: F17.210 Nicotine dependence, cigarettes, uncomplicated (principal); Z12.2 Encounter for screening for malignant neoplasm of respiratory organs
CPT/HCPCS: 71271

== ENCOUNTER → 2022-06-23 00:40 | Outpatient (CLI) | payer MEDICARE, MEDICAID, SELFPAY ==
--- NOTE | 2022-06-23 11:00 | ETT_ITS ---
APPROVED REPORT Exam: Exercise Treadmill Patient Location: Out-Patient Room/Bed: Stress Nurse: Jessica Levi RN Ordering Provider:ALAN ENGLE, Contact Number: [phone] BMI: 22.70 Baseline Rhythm: Sinus Rhythm Indications: Dyspnea on exertion. Medical History Medical History: HTN. Heart murmur Cardiac Medications: Aspirin. Losartan. Omeprazole. Albuterol sulfate. Symbicort. Allergies: No known drug allergies Cardiac Risk Factors: Family hx. COPD. HTN. Smoker. Previous Cardiac Procedures: None Pretest Chest Pain Characteristics: None Exercise History: Sedentary Physical Disabilities: None Lung Sounds: Clear to auscultation, diminished throughout. Heart Sounds: Regular Stress Test Details Test: Exercise stress testing was performed using a Dominic protocol. Rest Stress HR Resting HR Supine: 67 bpm Max Heart Rate (APMHR): 157 bpm Resting HR Standin bpm Target HR (85% APMHR): 133 bpm Max HR Achieved: 136 bpm % of APMHR: 87 Recovery HR: 74 bpm HR response to stress: Normal HR response to stress BP Resting BP Supine: 138/80 mmHg Resting BP Standin/70 mmHg Max BP: 198/98 mmHg Recovery BP: 140/86 mmHg BP response to stress: Normal blood pressure response to stress. ECG Resting ECG: Sinus Rhythm Ectopy: none Stress ECG: Sinus Tachycardia ST Change: No significant ST segment changes noted Arrhythmia: None Recovery ECG: Sinus Rhythm Recovery ST Change: No significant ST segment changes noted Recovery Arrhythmia: None Clinical Reason for Termination: Dyspnea Stress Symptoms: Dyspnea Exercise duration: 6 min17 sec Highest Stage Reached: Stage 3: 3.4 mph at 14% grade. Exercise capacity: 7.47 METs Scale: Sedentary Angina Score: None Rate Pressure Product: [id number] Stress ECG Conclusion 1. Resting electrocardiogram was within normal limits 2. Patient exercised on the Dominic protocol completed a workload of 7.47 METS 3. Normal heart rate and blood pressure response to exercise. The patient achieved 87% predicted hea rt rate for age 4. There was no electrocardiographic evidence of myocardial ischemia 5. There were no significant dysrhythmias Stress Test Summary STAGE Time (mins) Speed (mph) Grade (%) HR BP SpO2 SYMPTOMS METS Supine 67 138/80 Standing 70 120/74 1 3 1.7 10 109 142/80 90 4.5 2 6 2.5 12 133 92 7 1 min recovery 125 190/98 3 min recovery 105 198/98 96 6 min recovery 93 168/90 9 min recovery 74 140/86
== END ==
PROVIDERS: PCP Family Medicine; Visit Provider Family Medicine
DX: R06.09 Other forms of dyspnea (principal)
CPT/HCPCS: 93016; 93018; 93017

== ENCOUNTER 2022-07-19 21:52 | Emergency (ER) | payer MEDICARE, MEDICAID, SELFPAY ==
[2022-07-19 22:15] VITALS: BP 140/75; PULSE 89; RESP 15; TEMP 39.1; O2SAT 94
--- NOTE | 2022-07-19 22:30 | DI.RAD_ITS ---
Exam(s) XR PORTABLE CHEST AP EXAM: XR PORTABLE CHEST AP CLINICAL HISTORY: cough TECHNIQUE: 2D digital imaging was performed. COMPARISON: CR,XR XR PORTABLE CHEST AP from 09/14/[address] CHEST LUNG CANCER SCREEN from 06/21/2022 FINDINGS: LUNGS: Emphysematous changes. Mild chronic interstitial changes. No focal infiltrate. No pleural a bnormality seen. HEART: Normal size. AORTA: Normal diameter. BONES: Unremarkable for age. Soft tissues: Unremarkable. IMPRESSION: No acute findings. DATA REPOSITORY: RADIATION DOSE DELIVERED:
[2022-07-19 22:48] LABS: Abs Immature Grans 0.03 10^3/uL (0.0-0.06); Absolute Basophil Count 0.03 10^3/uL (0.0-0.2); Absolute Eosinophil Count 0.02 10^3/uL (0.0-0.7); Absolute Lymphocyte Count 1.03 10^3/uL (1.2-3.4); Absolute Monocyte Count 0.75 10^3/uL (0.1-0.8); Basophils % 0.3; Eosinophils % 0.2; HCT 41.4 % (36.0-46.0); HGB 13.9 g/dL (11.2-15.7); Immature Grans % 0.3; Lymphocytes % 9.4; MCH 30.7 pg (27.0-33.0); MCHC 33.6 % (32.0-36.0); MCV 91 fL (80-95); MPV 10.6 fL (8.0-11.0); Monocytes % 6.9; Neutrophils % 82.9; Platelet Count 191 10^3/uL (130-400); RBC 4.53 10^6/uL (3.93-5.22); RDW 12.1 % (11.7-14.6); RDW-SD 40.8 fL; WBC 10.91 10^3/uL (4.4-10.8)
[2022-07-19 22:53] LABS: Absolute Neutrophil Count 9.04 10^3/uL (1.2-6.7)
--- NOTE | 2022-07-19 22:53 | ED.GENADUL_ITS ---
Discharge Plan Disposition Patient Disposition: Home Condition: Stable Discharge Details Clinical Impression: Asthma exacerbation in COPD Primary Care Provider: Melanie Cheng V ED Provider: Delio Lerma Home Meds and New Rx's Prescriptions: New prednisone 20 mg tablet 60 mg PO DAILY 4 Days Qty: 12 0RF levofloxacin 750 mg tablet 750 mg PO DAILY Qty: 5 0RF Continued cyanocobalamin (vitamin B-12) [Vitamin B-12] 1,000 MCG tablet extended release 1,000 mcg PO DAILY aspirin 325 MG tablet 325 mg PO DAILY albuterol sulfate 8.5 GM HFA aerosol inhaler 2 inh Inhalation Q4H PRN PRN budesonide-formoterol [Symbicort] 60 PUFF HFA aerosol inhaler 1 inh Inhalation BID methocarbamol 500 MG tablet 500 mg PO BID venlafaxine 75 mg capsule,extended release 24hr 75 mg PO DAILY Label Comments: TAKE ONE CAPSULE BY MOUTH EVERY DAY WITH 150 MG CAPSULE hydrocodone-acetaminophen 5-325 mg tablet 1 tab PO QHS PRN Label Comments: TAKE 1 TABLET BY MOUTH ONCE DAILY AT BEDTIME AND UP TO 5 ADDITIONAL TABLETS PER MONTH NEEDED FOR PAIN Rx Instructions: TAKE 1 TABLET BY MOUTH ONCE DAILY AT BEDTIME AND UP TO 5 ADDITIONAL TABLETS PER MONTH NEEDED FOR PAIN venlafaxine 150 mg capsule,extended release 24hr 150 mg PO DAILY levothyroxine 125 mcg tablet 125 mcg PO Q OTHER DAY Label Comments: TAKE 1 TABLET BY MOUTH EVERY OTHER DAY losartan 25 mg tablet 50 mg PO DAILY Label Comments: TAKE ONE TABLET BY MOUTH EVERY DAY omeprazole 20 mg capsule,delayed release(DR/EC) 20 mg PO DAILY Label Comments: TAKE 1 CAPSULE BY MOUTH ONCE DAILY levothyroxine 112 mcg tablet 112 mcg PO Q OTHER DAY Label Comments: TAKE 1 TABLET BY MOUTH EVERY OTHER DAY Discharge Instructions Instructions: COPD (Chronic Obstructive Pulmonary Disease) (ED) Additional Instructions: continue to use your nebulizers as needed follow up with your primary care provider within 1 week if you feel more ill, have worsening shortness of breath or persistent vomiting return to the emergency department Medical Decision Making 61 yo female with hx of copd and chronic smoker, who comes in with several days of worsening cough and shortness of breath and fever today. Denies chest pain, abdominal pain, n/v. She arrives stable, is febrile but appears well speaking in full sentences. She has diffuse wheezing in all lung herrera and intermittent dry cough, no jvd, no murmurs, no leg swelling, no calf tenderness. Her symptoms seem consistent with copd exacerbation in the setting of a possible viral illness, will obtain cbc, cmp, fluvid, xray and treat with solumedrol and duoneb and reassess. xray and labs unremarkable, she feels significantly better and has mild apical wheezing bilaterally otherwise clear lungs. She is requesting d/c and given improvement with treatments and stable vitals feel this is reasonable. Will start her on levofloxacin for copd exacerbation and continue steroids, advised to f/u with pcp and return precautions given Differential Diagnosis Differential Diagnosis: copd, uri, covid, flu, pneumonia Medical Records Medical records reviewed: Yes I reviewed the patient's medical records. Imaging Data Radiologic Study: Attestation: I personally reviewed and interpreted this imaging study as follows: Imaging: X-Ray Radiologist's impression: no acute findings Lab Data Lab results reviewed: Yes I reviewed the patient's lab results. HPI General Mode of arrival: ambulatory . Date/Time Provider Initiated Documentation: 07/19/22 21:53 . Limitations to Documentation: no limitations . Information obtained by: patient . History of Present Illness 61 year old F presents to the emergency department with the chief complaint of cough, described as moderate, Patient started experiencing this day(s) (3) and it has been constant. No relieving factors improve symptom(s), No exacerbating factors reported . Patient notes fever/chills and shortness of breath. Patient did receive the following treatments prior to arrival, none Related Data Home Medications Medication Instructions Recorded Confirmed aspirin 325 mg tablet 325 mg PO DAILY 11/12/12 09/14/21 cyanocobalamin (vitamin B-12) 1,000 mcg PO DAILY 11/12/12 09/14/21 1,000 mcg tablet,extended release (Vitamin B-12 ER) albuterol sulfate 90 mcg/actuation 2 inh inhalation Q4H PRN PRN 03/21/15 09/14/21 aerosol inhaler budesonide-formoterol HFA 160 1 inh inhalation BID 03/21/15 09/14/21 mcg-4.5 mcg/actuation aerosol inhaler (Symbicort) methocarbamol 500 mg tablet 500 mg PO BID 02/04/17 09/14/21 hydrocodone 5 mg-acetaminophen 325 1 tab PO QHS PRN 12/27/20 09/14/21 mg tablet levothyroxine 112 mcg tablet 112 mcg PO Q OTHER DAY 12/27/20 09/14/21 levothyroxine 125 mcg tablet 125 mcg PO Q OTHER DAY 12/27/20 09/14/21 losartan 25 mg tablet 50 mg PO DAILY 12/27/20 09/14/21 omeprazole 20 mg capsule,delayed 20 mg PO DAILY 12/27/20 09/14/21 release venlafaxine 150 mg 150 mg PO DAILY 12/27/20 09/14/21 capsule,extended release 24 hr venlafaxine 75 mg capsule,extended 75 mg PO DAILY 12/27/20 09/14/21 release 24 hr levofloxacin 750 mg tablet 750 mg PO DAILY #5 tabs 07/20/22 prednisone 20 mg tablet 60 mg PO DAILY 4 days #12 tabs 07/20/22 Previous Rx's Medication Instructions Recorded levofloxacin 750 mg tablet 750 mg PO DAILY #5 tabs 07/20/22 prednisone 20 mg tablet 60 mg PO DAILY 4 days #12 tabs 07/20/22 Allergies Allergy/AdvReac Type Severity Reaction Status Date / Time No Known Allergies Allergy Unverified 09/14/21 13:53 General Stated Complaint: Fever NAYE: 4 Review of Systems All systems reviewed & are unremarkable except as noted in HPI and below Constitutional Constitutional: Denies weakness Cardiovascular Cardiovascular: Denies chest pain Gastrointestinal Gastrointestinal: Denies abdominal pain, Denies nausea and Denies vomiting Musculoskeletal Musculoskeletal: Denies joint swelling Integumentary/Breasts Skin/Breast: Denies rash Neurologic Neurologic: Denies weakness PFSH All Active Problems (Updated 07/20/22 @ 00:45 by Delio Lerma MD) Rib pain (Acute) Rash (Acute) Lingular pneumonia (Acute) Close exposure to COVID-19 virus (Acute) Dog bite (Acute) Asthma exacerbation in COPD (Acute) Social History Smoking/Tobacco Use Status: Current every day Tobacco Type: cigarettes Smoking risk assessment performed?: Yes Alcohol Intake: never Drug use: Daily Substance use type: marijuana Do you feel safe at home: Yes Do you feel safe in your relationship?: Yes Exam Const General: no acute distress Orientation: alert HENIN Head: normal to inspection Ears: external ears normal General nose exam: external nose normal Mouth: moist mucous membranes Eyes General: appearance normal, both eyes and all related structures Neck Neck: normal visual inspection Resp Effort & Inspection: normal respiratory effort and able to speak in complete sentences Auscultation: wheezes Cardio Jugular venous pressure: no JVD Rate: regular rate Heart Sounds: no murmurs Skin General skin exam: no rashes or lesions noted Neuro General: patient alert and patient oriented x3 Extrem General: normal to inspection Psych Mental Status: mental status grossly normal Course Vital Signs Vital signs: Vital Signs Temperature 39.1 C H 07/19/22 22:15 Pulse 89 07/19/22 22:15 Respiratory Rate 15 07/19/22 22:15 Blood Pressure 140/75 07/19/22 22:15 Pulse Oximetry 94 07/19/22 22:15 Temperature 39.1 C H 07/19/22 22:15 Pulse 89 07/19/22 22:15 Respiratory Rate 15 07/19/22 22:15 Respiratory Effort 07/19/22 22:18 Blood Pressure 140/75 07/19/22 22:15 Blood Pressure Position Supine 07/19/22 22:15 Pulse Oximetry 94 07/19/22 22:15 Oxygen Delivery Method Room Air 07/19/22 22:15 Oxygen Flow Rate 0 07/19/22 22:15 Pain Level 3 07/19/22 22:15
[2022-07-19 23:06] LABS: ALT 28 U/L (14-59); AST 22 U/L (15-37); Albumin 3.4 g/dL (3.4-5.0); Alkaline Phosphatase 83 U/L (46-116); Anion Gap 5.2 mmol/L (3-11); BUN 17 mg/dL (7-18); Bilirubin, Total 0.5 mg/dL (0.2-1.0); CO2 31.8 mmol/L (21.0-32.0); CREATININE 0.9 mg/dL (0.55-1.02); Calcium 8.6 mg/dL (8.5-10.1); Chloride 100 mmol/L (98-107); Estimated GFR 71.83 (mL/min/1.73m2); Glucose 121 mg/dL (74-106); Potassium 3.8 mmol/L (3.5-5.1); Sodium 137 mmol/L (136-145); Total Protein 7.8 g/dL (6.4-8.2)
--- NOTE | 2022-07-19 23:18 | DI.VRAD_ITS ---
PROCEDURE INFORMATION: Exam: XR Chest Exam date and time: 07/19/2022 10:29 PM Age: 61 years old Clinical indication: Cough TECHNIQUE: Imaging protocol: Radiologic exam of the chest. Views: 1 view. COMPARISON: CT CHEST LUNG CANCER SCREEN 06/21/2022 3:04 PM FINDINGS: Lungs: Unremarkable. No consolidation. Pleural spaces: Unremarkable. No pleural effusion. No pneumothorax. Heart/Mediastinum: Unremarkable. No cardiomegaly. Bones/joints: Unremarkable. IMPRESSION: No acute findings. Dictated and Authenticated by: Delio Vazquez MD. Ordering:RAFY Kebede MD
[2022-07-19] MEDS: methylPREDNISolone SUCC 125 MG VIAL IVP (23:33)
[2022-07-19] MEDS: Albuterol/Ipratropium 3 ML UPD VIAL UPD (23:33)
[2022-07-19] MEDS: Acetaminophen 500 MG TAB 1000 MG PO (23:46)
[2022-07-20 00:08] LABS: COVID-19 PCR Negative (Negative); Influenza A PCR Negative (Negative); Influenza B PCR Negative (Negative); RSV PCR Negative (Negative)
[2022-07-20 00:15] LABS: Source Nasopharynx
[2022-07-20] MEDS: levoFLOXacin 500 MG, levoFLOXacin 250 MG 750 MG PO (00:57)
[2022-07-20 01:08] VITALS: BP 136/75; PULSE 90; RESP 15; TEMP 37.3; O2SAT 93
== END 2022-07-20 01:07 | disposition home or self-care (01) ==
PROVIDERS: Emergency Provider Emergency Medicine; PCP Family Medicine
DX: J45.901 Unspecified asthma with (acute) exacerbation (principal); J44.9 Chronic obstructive pulmonary disease, unspecified; F17.210 Nicotine dependence, cigarettes, uncomplicated; Z79.51 Long term (current) use of inhaled steroids; Z79.82 Long term (current) use of aspirin; Z20.822 Contact with and (suspected) exposure to COVID-19
CPT/HCPCS: 80053; 87637; 94640; 96374; 99284; 71045; 85025; J2930; J7620

== ENCOUNTER 2022-11-17 11:28 | Outpatient (REF) | payer MEDICARE, MEDICAID, SELFPAY ==
[2022-11-17 16:39] LABS: HCT 45.4 % (36.0-46.0); HGB 15.1 g/dL (11.2-15.7); MCH 31.1 pg (27.0-33.0); MCHC 33.3 % (32.0-36.0); MCV 93 fL (80-95); MPV 11.9 fL (8.0-11.0); Platelet Count 187 10^3/uL (130-400); RBC 4.86 10^6/uL (3.93-5.22); RDW-SD 44.6 fL; WBC 4.96 10^3/uL (4.4-10.8)
[2022-11-17 17:13] LABS: Anion Gap 3.8 mmol/L (3-11); BUN 9 mg/dL (7-18); CO2 33.2 mmol/L (21.0-32.0); CREATININE 0.7 mg/dL (0.55-1.02); Calcium 9.2 mg/dL (8.5-10.1); Chloride 102 mmol/L (98-107); Estimated GFR 96.52 (mL/min/1.73m2); Glucose 85 mg/dL (74-106); Potassium 4.4 mmol/L (3.5-5.1); Sodium 139 mmol/L (136-145); TSH (W/Ref FT4) 0.14 uIU/mL (0.36-3.74)
[2022-11-17 18:16] LABS: Hemoglobin A1C 5.6 % (<5.7)
[2022-11-17 18:27] LABS: FREE T4 1.46 ng/dL (0.76-1.46)
== END 2022-11-17 11:29 | disposition home or self-care (01) ==
LOC: NCHCN 11:28
PROVIDERS: PCP Family Medicine; Visit Provider Family Medicine
DX: I10 Essential (primary) hypertension (principal); E03.9 Hypothyroidism, unspecified; G47.10 Hypersomnia, unspecified; E55.9 Vitamin D deficiency, unspecified; R79.89 Other specified abnormal findings of blood chemistry
CPT/HCPCS: 80048; 82306; 85027; 83036; 84439; 84443

== ENCOUNTER 2022-11-23 12:20 | Outpatient (CLI) | payer MEDICARE, MEDICAID, SELFPAY ==
--- NOTE | 2022-11-23 | DI.RAD_ITS ---
Exam(s) XR SHOULDER RT COMPLETE 2+V EXAM: XR SHOULDER RT COMPLETE 2+V CLINICAL HISTORY: RT SHOULDER PAIN, M25.511. TECHNIQUE: 2D digital imaging was performed. Five views. COMPARISON: CR RIGHT SHOULDER COMPLETE from 09/28/2011 FINDINGS: BONES: No acute fracture is present. No bony destructive lesion is seen. JOINTS: No dislocation present. Mild spurring at the glenoid. Minimal spurring at the tip of the ac romion. SOFT TISSUE: Normal. IMPRESSION: Minimal degenerative changes. DATA REPOSITORY: RADIATION DOSE DELIVERED:
== END 2022-11-23 12:40 ==
LOC: DI 12:21
PROVIDERS: PCP Family Medicine; Visit Provider Family Medicine
DX: M25.511 Pain in right shoulder (principal)
CPT/HCPCS: 73030

== ENCOUNTER 2022-12-19 11:53 | Emergency (ER) | payer MEDICARE, MEDICAID, SELFPAY ==
--- NOTE | 2022-12-19 12:00 | RT.EKG_ITS ---
APPROVED REPORT Exam: Resting ECG Reason for Exam: Chest Pain Patient Location: E HR:69 bpm ECG Measurements Heart Rate 69 AXIS NC 134 P 83 QRSd 87 QRS 60 QT 417 T 70 QTc 446 Conclusion Sinus rhythm...normal P axis, V-rate 60- 99 Paired ventricular premature complexes...sequence of 2 V complexes
[2022-12-19 12:02] VITALS: BP 143/89; PULSE 69; RESP 16; TEMP 36.7; O2SAT 96
--- NOTE | 2022-12-19 13:42 | ED.GENADUL_ITS ---
Discharge Plan Disposition Patient Disposition: Home Discharge Details Clinical Impression: Sinus pain, Acute bacterial sinusitis Primary Care Provider: Melanie Cheng V ED Provider: Popeye Lerma Home Meds and New Rx's Prescriptions: New amoxicillin-pot clavulanate 875-125 mg tablet 1 tab PO BID 10 Days Qty: 20 0RF Continued cyanocobalamin (vitamin B-12) [Vitamin B-12] 1,000 MCG tablet extended release 1,000 mcg PO DAILY aspirin 325 MG tablet 325 mg PO DAILY albuterol sulfate 8.5 GM HFA aerosol inhaler 2 inh Inhalation Q4H PRN PRN budesonide-formoterol [Symbicort] 60 PUFF HFA aerosol inhaler 1 inh Inhalation BID methocarbamol 500 MG tablet 500 mg PO BID venlafaxine 75 mg capsule,extended release 24hr 75 mg PO DAILY Patient Comments: TAKE ONE CAPSULE BY MOUTH EVERY DAY WITH 150 MG CAPSULE hydrocodone-acetaminophen 5-325 mg tablet 1 tab PO QHS PRN Patient Comments: TAKE 1 TABLET BY MOUTH ONCE DAILY AT BEDTIME AND UP TO 5 ADDITIONAL TABLETS PER MONTH NEEDED FOR PAIN Rx Instructions: TAKE 1 TABLET BY MOUTH ONCE DAILY AT BEDTIME AND UP TO 5 ADDITIONAL TABLETS PER MONTH NEEDED FOR PAIN venlafaxine 150 mg capsule,extended release 24hr 150 mg PO DAILY levothyroxine 125 mcg tablet 125 mcg PO Q OTHER DAY Patient Comments: TAKE 1 TABLET BY MOUTH EVERY OTHER DAY losartan 25 mg tablet 50 mg PO DAILY Patient Comments: TAKE ONE TABLET BY MOUTH EVERY DAY omeprazole 20 mg capsule,delayed release(DR/EC) 20 mg PO DAILY Patient Comments: TAKE 1 CAPSULE BY MOUTH ONCE DAILY levothyroxine 112 mcg tablet 112 mcg PO Q OTHER DAY Patient Comments: TAKE 1 TABLET BY MOUTH EVERY OTHER DAY levofloxacin 750 mg tablet 750 mg PO DAILY Qty: 5 0RF Discharge Instructions Instructions: Sinusitis (ED), Upper Respiratory Infection (ED) Additional Instructions: You were seen in the emergency department for sinus pain and nasal drainage. You likely have bacterial sinusitis and we have given you antibiotics for this. Your COVID and flu test were pending but we will call you if these are positive. Take the antibiotics for the full course even if you start to feel better. Take [id number] Tylenol and Motrin per bottle directions for any discomfort. Follow-up with your primary care doctor about this visit. Return to the emergency department for any worsening headache, nasal drainage, high fevers or chills or any other symptoms that are worrisome to you. Referrals: Melanie Cheng MD [Primary Care Provider] - 1 week Medical Decision Making 62-year-old female presents with sinus pain and nasal drainage. Has only had symptoms for 1 week but given the significant symptoms we will treat for suspected bacterial sinusitis. Will swab for COVID/flu/RSV but does not have to wait for the results. Neurologic exam is unremarkable and she has a little bit of a headache likely associated with the sinusitis and no role for CT imaging of the head at this time. She is agreeable with the plan to go home with antibiotics and return if anything worsen. Doubt other cause of her symptoms. Will discharge with return precautions. Medical Records Medical records reviewed: Yes I reviewed the patient's medical records. HPI General Mode of arrival: ambulatory . Date/Time Provider Initiated Documentation: 12/19/22 13:34 . Limitations to Documentation: no limitations . Information obtained by: patient . HPI Narrative: 62-year-old female with history of smoking, hypothyroidism, hypertension, GERD is now presenting with sinus pain. For the last week she has had sinus pressure with occasional associated headache. Having significant green drainage from the nose every day and she says she even has to wake up in the middle of the night to blow her nose. Also complaining of some right ear pain. She called her primary care doctor to try and get seen there today but they said they were too busy and referred her here. Related Data Home Medications Medication Instructions Recorded Confirmed aspirin 325 mg tablet 325 mg PO DAILY 11/12/12 09/14/21 cyanocobalamin (vitamin B-12) 1,000 mcg PO DAILY 11/12/12 09/14/21 1,000 mcg tablet,extended release (Vitamin B-12 ER) albuterol sulfate 90 mcg/actuation 2 inh inhalation Q4H PRN PRN 03/21/15 09/14/21 aerosol inhaler budesonide-formoterol HFA 160 1 inh inhalation BID 03/21/15 09/14/21 mcg-4.5 mcg/actuation aerosol inhaler (Symbicort) methocarbamol 500 mg tablet 500 mg PO BID 02/04/17 09/14/21 hydrocodone 5 mg-acetaminophen 325 1 tab PO QHS PRN 12/27/20 09/14/21 mg tablet levothyroxine 112 mcg tablet 112 mcg PO Q OTHER DAY 12/27/20 09/14/21 levothyroxine 125 mcg tablet 125 mcg PO Q OTHER DAY 12/27/20 09/14/21 losartan 25 mg tablet 50 mg PO DAILY 12/27/20 09/14/21 omeprazole 20 mg capsule,delayed 20 mg PO DAILY 12/27/20 09/14/21 release venlafaxine 150 mg 150 mg PO DAILY 12/27/20 09/14/21 capsule,extended release 24 hr venlafaxine 75 mg capsule,extended 75 mg PO DAILY 12/27/20 09/14/21 release 24 hr levofloxacin 750 mg tablet 750 mg PO DAILY #5 tabs 07/20/22 amoxicillin 875 mg-potassium 1 tab PO BID 10 days #20 tabs 12/19/22 clavulanate 125 mg tablet Previous Rx's Medication Instructions Recorded levofloxacin 750 mg tablet 750 mg PO DAILY #5 tabs 07/20/22 amoxicillin 875 mg-potassium 1 tab PO BID 10 days #20 tabs 12/19/22 clavulanate 125 mg tablet Allergies Allergy/AdvReac Type Severity Reaction Status Date / Time No Known Allergies Allergy Unverified 09/14/21 13:53 General Stated Complaint: RespSymp NAYE: 4 Review of Systems Constitutional Constitutional: Denies chills, Denies fever(s) and Reports headache(s) Eyes Eyes: Denies change in vision ENT Ears, Nose, Mouth, and Throat: Denies vertigo, Denies dizziness, Denies ear discharge, Reports otalgia, Reports headache(s), Denies odynophagia, Reports sinus pain and Reports other (significant green nasal drainage) Cardiovascular Cardiovascular: Denies chest pain and Denies dyspnea Respiratory Respiratory: Denies dyspnea Gastrointestinal Gastrointestinal: Denies abdominal pain, Denies diarrhea, Denies nausea, Denies odynophagia and Denies vomiting Genitourinary Genitourinary: Denies dysuria Musculoskeletal Musculoskeletal: Denies myalgias Integumentary/Breasts Skin/Breast: Denies changing lesions Neurologic Neurologic: Denies behavioral changes, Denies vertigo, Denies dizziness and Reports headache(s) Psychiatric Psychiatric: Denies behavioral changes Endocrine Endocrine: Denies heat intolerance Hematologic/Lymphatic Hematologic/Lymphatic: Denies lymphadenopathy PFSH All Active Problems (Updated 12/19/22 @ 13:47 by Popeye Lerma MD) Sinus pain (Acute) Acute bacterial sinusitis (Acute) Tubular adenoma of colon (Acute) Hypertension (Chronic) Thoracic aortic ectasia (Acute) Rib pain (Acute) Rash (Acute) Lingular pneumonia (Acute) Close exposure to COVID-19 virus (Acute) Dog bite (Acute) Medical History B12 deficiency Dysphagia Dyspnea on exertion GERD (gastroesophageal reflux disease) History of syncope Hypothyroidism Nasal polyp Social History Smoking/Tobacco Use Status: Current every day Tobacco Type: cigarettes Smoking risk assessment performed?: Yes Alcohol Intake: never Drug use: Daily Substance use type: marijuana Do you feel safe at home: Yes Do you feel safe in your relationship?: Yes Exam Const General: cooperative Nutritional Appearance: average body habitus Orientation: alert, awake and oriented x3 HENMT Head: normal to inspection Ears: external ears normal Mouth: moist mucous membranes Other: Bilateral tympanic membranes unremarkable. Significant sinus tenderness. Otherwise unremarkable ENT exam. Full range of motion of the eyes without pain and no swelling or proptosis to the eyes. Eyes Pupils: PERRL EOM: EOM intact bilaterally and No nystagmus Neck Neck: full ROM and no tracheal deviation Chest Chest: normal inspection of the chest Resp Auscultation: clear to auscultation bilaterally Cardio Rate: regular rate Rhythm: regular rhythm GI Inspection: normal to inspection Palpation: soft, no guarding, not rigid and nontender Back/Spine/Pelvis Back: No no CVA tenderness Thoracic/Lumbar Spine: thoracic and lumbar spine normal to inspection Skin General skin exam: no rashes or lesions noted Neuro General: patient alert, patient awake and patient oriented x3 Cranial Nerves: CN's II-XI intact bilaterally, PERRL and no nystagmus Cognition: normal cognition Motor: muscle tone normal throughout and strength 5/5 throughout Sensory Exam: no sensory deficits noted Extrem General: normal to inspection Course Vital Signs Vital signs: Vital Signs Temperature 36.7 C 12/19/22 12:02 Pulse 69 12/19/22 12:02 Respiratory Rate 16 12/19/22 12:02 Blood Pressure 143/89 H 12/19/22 12:02 Pulse Oximetry 96 12/19/22 12:02 Temperature 36.7 C 12/19/22 12:02 Temperature Source Skin 12/19/22 12:02 Pulse 69 12/19/22 12:02 Respiratory Rate 16 12/19/22 12:02 Blood Pressure 143/89 H 12/19/22 12:02 Blood Pressure Position Sitting 12/19/22 12:02 Pulse Oximetry 96 12/19/22 12:02 Oxygen Delivery Method Room Air 12/19/22 12:02 Oxygen Flow Rate 0 12/19/22 12:02 Pain Level 1 12/19/22 12:02
[2022-12-19 14:47] LABS: COVID-19 PCR Negative (Negative); Influenza A PCR Negative (Negative); Influenza B PCR Negative (Negative); RSV PCR Negative (Negative)
[2022-12-19 15:10] LABS: Source Nasopharynx
== END 2022-12-19 14:07 | disposition home or self-care (01) ==
PROVIDERS: Emergency Provider Student in an Organized Health Care Education/Training Program; PCP Family Medicine
DX: J34.89 Other specified disorders of nose and nasal sinuses (principal); J01.90 Acute sinusitis, unspecified; B96.89 Other specified bacterial agents as the cause of diseases classified elsewhere
CPT/HCPCS: 87637; 93005; 99283; 93010; 99284

== ENCOUNTER → 2022-12-27 13:25 | Outpatient (BNVA) | payer MEDICARE, MEDICAID, SELFPAY | PROVIDERS: PCP Family Medicine; Referring Provider Family Medicine; Visit Provider Student in an Organized Health Care Education/Training Program | DX: M19.011 Primary osteoarthritis, right shoulder (principal); M75.51 Bursitis of right shoulder | CPT/HCPCS: 20610; 99203; 99213; J1030 ==

== ENCOUNTER 2023-03-27 19:18 | Emergency (ER) | payer MEDICARE, MEDICAID, SELFPAY ==
[2023-03-27 19:28] VITALS: BP 153/104; PULSE 76; RESP 14; TEMP 36.9; O2SAT 96
[2023-03-27 21:31] LABS: Abs Immature Grans 0.02 10^3/uL (0.0-0.06); Absolute Basophil Count 0.05 10^3/uL (0.0-0.2); Absolute Eosinophil Count 0.15 10^3/uL (0.0-0.7); Absolute Lymphocyte Count 2.08 10^3/uL (1.2-3.4); Basophils % 0.8; Eosinophils % 2.3; HCT 47.4 % (36.0-46.0); HGB 15.8 g/dL (11.2-15.7); Immature Grans % 0.3; MCH 30.8 pg (27.0-33.0); MCHC 33.3 % (32.0-36.0); MCV 92 fL (80-95); MPV 9.9 fL (8.0-11.0); Monocytes % 7.7; Neutrophils % 56.9; Platelet Count 184 10^3/uL (130-400); RBC 5.13 10^6/uL (3.93-5.22); RDW 12.7 % (11.7-14.6); RDW-SD 43.4 fL
[2023-03-27] MEDS: predniSONE 20 MG TAB 40 MG PO (21:42)
[2023-03-27 21:45] LABS: ALT 25 U/L (14-59); AST 18 U/L (15-37); Alkaline Phosphatase 79 U/L (46-116); Anion Gap 7.1 mmol/L (3-11); BUN 12 mg/dL (7-18); Bilirubin, Total 0.4 mg/dL (0.2-1.0); CO2 32.9 mmol/L (21.0-32.0); Calcium 9.1 mg/dL (8.5-10.1); Chloride 99 mmol/L (98-107); Estimated GFR 62.91 (mL/min/1.73m2); Glucose 110 mg/dL (74-106); Sodium 139 mmol/L (136-145); Total Protein 7.7 g/dL (6.4-8.2)
--- NOTE | 2023-03-27 22:04 | ED.GENADUL_ITS ---
Discharge Plan Disposition Patient Disposition: Home Discharge Details Clinical Impression: Dermatitis, Ecchymosis Primary Care Provider: Melanie Cheng V ED Provider: Gloria Askew Home Meds and New Rx's Prescriptions: New prednisone 20 mg tablet 40 mg PO ONCE Qty: 10 0RF hydroxyzine HCl 25 mg tablet 25 mg PO QID PRNQty: 10 0RF Continued cyanocobalamin (vitamin B-12) [Vitamin B-12] 1,000 MCG tablet extended release 1,000 mcg PO DAILY albuterol sulfate 8.5 GM HFA aerosol inhaler 2 inh Inhalation Q4H PRN PRN budesonide-formoterol [Symbicort] 60 PUFF HFA aerosol inhaler 1 inh Inhalation BID methocarbamol 500 MG tablet 500 mg PO BID hydrocodone-acetaminophen 5-325 mg tablet 1 tab PO QHS PRN Patient Comments: TAKE 1 TABLET BY MOUTH ONCE DAILY AT BEDTIME AND UP TO 5 ADDITIONAL TABLETS PER MONTH NEEDED FOR PAIN Rx Instructions: TAKE 1 TABLET BY MOUTH ONCE DAILY AT BEDTIME AND UP TO 5 ADDITIONAL TABLETS PER MONTH NEEDED FOR PAIN venlafaxine 150 mg capsule,extended release 24hr 150 mg PO DAILY levothyroxine 125 mcg tablet 125 mcg PO Q OTHER DAY Patient Comments: TAKE 1 TABLET BY MOUTH EVERY OTHER DAY losartan 25 mg tablet 50 mg PO DAILY Patient Comments: TAKE ONE TABLET BY MOUTH EVERY DAY omeprazole 20 mg capsule,delayed release(DR/EC) 20 mg PO DAILY Patient Comments: TAKE 1 CAPSULE BY MOUTH ONCE DAILY levothyroxine 112 mcg tablet 112 mcg PO Q OTHER DAY Patient Comments: TAKE 1 TABLET BY MOUTH EVERY OTHER DAY levofloxacin 750 mg tablet 750 mg PO DAILY Qty: 5 0RF Discharge Instructions Instructions: Dermatitis (ED) Additional Instructions: Take the prednisone as prescribed May try taking hydroxyzine for the itch as needed You may apply a topical emollient Return earlier should you have new or worsening complaints Referrals: Gloria Askew PA [Emergency Provider] - Discharge Data Discharge Date/Time-TO BE ENTERED AT DEPARTURE: 03/27/23 21:59 Medical Decision Making 62-year-old female presenting with red itchy rash bilateral upper extremities, she does have purpura noted, I suspect this is from itching, her platelet count and her CBC and BMP are all within normal limits, she is encouraged to take the prednisone for itch, take hydroxyzine as needed for itching, and return earlier should she have new or worsening complaints She will apply emollient cream to the affected extremities HPI General Date/Time Provider Initiated Documentation: 03/27/23 21:08 . HPI Narrative: This 62-year-old female presents with red itchy rash to bilateral arms which started after cutting some goldenrod. Denies any additional injuries, denies any difficulty swallowing, chest pain, shortness of breath Has been taking Benadryl consistently for 4 days reportedly. Related Data Home Medications Medication Instructions Recorded Confirmed cyanocobalamin (vitamin B-12) 1,000 mcg PO DAILY 11/12/12 12/27/22 1,000 mcg tablet,extended release (Vitamin B-12 ER) albuterol sulfate 90 mcg/actuation 2 inh inhalation Q4H PRN PRN 03/21/15 12/27/22 aerosol inhaler budesonide-formoterol HFA 160 1 inh inhalation BID 03/21/15 12/27/22 mcg-4.5 mcg/actuation aerosol inhaler (Symbicort) methocarbamol 500 mg tablet 500 mg PO BID 02/04/17 12/27/22 hydrocodone 5 mg-acetaminophen 325 1 tab PO QHS PRN 12/27/20 12/27/22 mg tablet levothyroxine 112 mcg tablet 112 mcg PO Q OTHER DAY 12/27/20 12/27/22 levothyroxine 125 mcg tablet 125 mcg PO Q OTHER DAY 12/27/20 12/27/22 losartan 25 mg tablet 50 mg PO DAILY 12/27/20 12/27/22 omeprazole 20 mg capsule,delayed 20 mg PO DAILY 12/27/20 12/27/22 release venlafaxine 150 mg 150 mg PO DAILY 12/27/20 12/27/22 capsule,extended release 24 hr levofloxacin 750 mg tablet 750 mg PO DAILY #5 tabs 07/20/22 12/27/22 hydroxyzine HCl 25 mg tablet 25 mg PO QID PRN #10 tabs 03/27/23 prednisone 20 mg tablet 40 mg PO ONCE #10 tabs 03/27/23 Previous Rx's Medication Instructions Recorded levofloxacin 750 mg tablet 750 mg PO DAILY #5 tabs 07/20/22 hydroxyzine HCl 25 mg tablet 25 mg PO QID PRN #10 tabs 03/27/23 prednisone 20 mg tablet 40 mg PO ONCE #10 tabs 03/27/23 Allergies Allergy/AdvReac Type Severity Reaction Status Date / Time bee venom protein (honey bee) Allergy Intermediate Verified 12/27/22 13:43 Latex, Natural Rubber Allergy Intermediate Verified 12/27/22 13:43 varenicline [From Chantix] Allergy Intermediate Verified 12/27/22 13:43 bupropion [From Wellbutrin] Allergy Verified 12/27/22 13:43 tiotropium AdvReac Intermediate Verified 12/27/22 13:43 [From Spiriva with HandiHaler] General Stated Complaint: RashLesion NAYE: 4 PFSH All Active Problems (Updated 03/27/23 @ 21:54 by SANTIAGO Palma) Dermatitis (Acute) Ecchymosis (Acute) Bursitis of right shoulder (Acute) Glenohumeral arthritis (Acute) Tubular adenoma of colon (Acute) Hypertension (Chronic) Thoracic aortic ectasia (Acute) Rib pain (Acute) Rash (Acute) Lingular pneumonia (Acute) Close exposure to COVID-19 virus (Acute) Dog bite (Acute) Medical History B12 deficiency Dysphagia Dyspnea on exertion GERD (gastroesophageal reflux disease) History of syncope Hypothyroidism Nasal polyp Social History Smoking/Tobacco Use Status: Current every day Tobacco Type: cigarettes Smoking risk assessment performed?: Yes Alcohol Intake: never Drug use: Daily Substance use type: marijuana Current gender identity: female Do you feel safe at home: Yes Do you feel safe in your relationship?: Yes Course Vital Signs Vital signs: Vital Signs Temperature 36.9 C 03/27/23 19:28 Pulse 76 03/27/23 19:28 Respiratory Rate 14 03/27/23 19:28 Blood Pressure 153/104 H 03/27/23 19:28 Pulse Oximetry 96 03/27/23 19:28 Temperature 36.9 C 03/27/23 19:28 Temperature Source Skin 03/27/23 19:28 Pulse 76 03/27/23 19:28 Respiratory Rate 14 03/27/23 19:28 Respiratory Effort Normal 03/27/23 21:11 Blood Pressure 153/104 H 03/27/23 19:28 Blood Pressure Position Sitting 03/27/23 19:28 Pulse Oximetry 96 03/27/23 19:28 Oxygen Delivery Method Room Air 03/27/23 19:28 Oxygen Flow Rate 0 03/27/23 19:28 Pain Level 9 03/27/23 19:28 Lab/Test Results Lab/Test Results: Laboratory Tests Range/Units 03/27/23 03/27/23 21:20 21:20 WBC (4.4-10.8) 10^3/uL 6.50 RBC (3.93-5.22) 10^6/uL 5.13 Hgb (11.2-15.7) g/dL 15.8 H Hct (36.0-46.0) % 47.4 H MCV (80-95) fL 92 MCH (27.0-33.0) pg 30.8 MCHC (32.0-36.0) % 33.3 RDW (11.7-14.6) % 12.7 Plt Count (130-400) 10^3/uL 184 MPV (8.0-11.0) fL 9.9 Immature Gran % 0.3 Neutrophils % 56.9 Lymphocytes % 32.0 Monocytes % 7.7 Eosinophils % 2.3 Basophils % 0.8 Nucleated RBC % (0.0-0.3) % 0.0 Absolute Neutrophils (1.2-6.7) 10^3/uL 3.70 Absolute Lymphocytes (1.2-3.4) 10^3/uL 2.08 Absolute Monocytes (0.1-0.8) 10^3/uL 0.50 Absolute Eosinophils (0.0-0.7) 10^3/uL 0.15 Absolute Basophils (0.0-0.2) 10^3/uL 0.05 Sodium (136-145) mmol/L 139 Potassium (3.5-5.1) mmol/L 4.0 Chloride (98-107) mmol/L 99 Carbon Dioxide (21.0-32.0) mmol/L 32.9 H Anion Gap (3-11) mmol/L 7.1 BUN (7-18) mg/dL 12 Creatinine (0.55-1.02) mg/dL 1.0 Est GFR (CKD-EPI 2020) (mL/min/1.73m2) 62.91 Glucose (74-106) mg/dL 110 H Calcium (8.5-10.1) mg/dL 9.1 Total Bilirubin (0.2-1.0) mg/dL 0.4 AST (15-37) U/L 18 ALT (14-59) U/L 25 Alkaline Phosphatase (46-116) U/L 79 Total Protein (6.4-8.2) g/dL 7.7 Albumin (3.4-5.0) g/dL 4.0
== END 2023-03-27 21:59 | disposition home or self-care (01) ==
PROVIDERS: Emergency Provider Physician Assistant; PCP Family Medicine
DX: L30.9 Dermatitis, unspecified (principal); R58 Hemorrhage, not elsewhere classified
CPT/HCPCS: 80053; 99283; 85025; 99284; J7512

== ENCOUNTER 2023-04-07 14:16 | Emergency (ER) | payer MEDICARE, MEDICAID, SELFPAY ==
[2023-04-07 14:33] VITALS: BP 169/86; PULSE 96; RESP 18; TEMP 37.1; O2SAT 95
--- NOTE | 2023-04-07 15:30 | DI.CT_ITS ---
Exam(s) CT HEAD WO EXAM: CT HEAD WO CLINICAL HISTORY: new severe headache with nausea. TECHNIQUE: Imaging Protocol: Axial computed tomography images with coronal and sagittal reformatted images were created and reviewed COMPARISON: CT CT BRAIN NECK CTA from 05/24/2022 FINDINGS: Exam severely limited by motion. Ventricles and Extra axial spaces: Normal in size and morphology fo r the patient's age. Hemorrhage: No gross large intraparenchymal hemorrhage. No large subdural or epidural hematoma. Cerebral parenchyma: No gross evidence evidence of acute infarct or mass. Midline shift: None. Brainstem/Cerebellum: Normal. Calvarium: Normal. Visualized Paranasal sinuses/Mastoids: Clear. Soft Tissues: Unremarkable. IMPRESSION: Limited exam secondary to motion. No gross evidence of an acute intracranial process. RADIATION DOSE DELIVERED: 692.4mGy.cm Total DLP DATA REPOSITORY: All CT scans at this facility are submitted to the National Radiology Data Registry (NRDR) Dose Index Registry (DIR) with the [employer] (ACR). RADIATION OPTIMIZATION: All CT scans at this facility use at least one of these dose optimization te chniques: automated exposure control; mA and/or kV adjustment per patient size (includes targeted exa ms where dose is matched to clinical indication); or iterative reconstruction.
--- NOTE | 2023-04-07 15:41 | W.ED.GENAD ---
Discharge Plan Disposition Patient Disposition: Home Condition: Good Discharge Details Clinical Impression: Malaise, Headache Primary Care Provider: Melanie Cheng V ED Provider: Meredith Olivier Home Meds and New Rx's Prescriptions: No Action cyanocobalamin (vitamin B-12) [Vitamin B-12] 1,000 MCG tablet extended release 1,000 mcg PO DAILY albuterol sulfate 8.5 GM HFA aerosol inhaler 2 inh Inhalation Q4H PRN PRN budesonide-formoterol [Symbicort] 60 PUFF HFA aerosol inhaler 1 inh Inhalation BID methocarbamol 500 MG tablet 500 mg PO BID hydrocodone-acetaminophen 5-325 mg tablet 1 tab PO QHS PRN Patient Comments: TAKE 1 TABLET BY MOUTH ONCE DAILY AT BEDTIME AND UP TO 5 ADDITIONAL TABLETS PER MONTH NEEDED FOR PAIN Rx Instructions: TAKE 1 TABLET BY MOUTH ONCE DAILY AT BEDTIME AND UP TO 5 ADDITIONAL TABLETS PER MONTH NEEDED FOR PAIN venlafaxine 150 mg capsule,extended release 24hr 150 mg PO DAILY levothyroxine 125 mcg tablet 125 mcg PO Q OTHER DAY Patient Comments: TAKE 1 TABLET BY MOUTH EVERY OTHER DAY losartan 25 mg tablet 50 mg PO DAILY Patient Comments: TAKE ONE TABLET BY MOUTH EVERY DAY omeprazole 20 mg capsule,delayed release(DR/EC) 20 mg PO DAILY Patient Comments: TAKE 1 CAPSULE BY MOUTH ONCE DAILY levothyroxine 112 mcg tablet 112 mcg PO Q OTHER DAY Patient Comments: TAKE 1 TABLET BY MOUTH EVERY OTHER DAY levofloxacin 750 mg tablet 750 mg PO DAILY Qty: 5 0RF prednisone 20 mg tablet 40 mg PO ONCE Qty: 10 0RF hydroxyzine HCl 25 mg tablet 25 mg PO QID PRNQty: 10 0RF Discharge Instructions Instructions: General Headache (ED) Additional Instructions: Take tylenol and ibuprofen over the counter as needed for pain; follow the directions on the bottle. Call your primary care doctor tomorrow to schedule an appointment to be seen next week to follow up on your visit today. Return to the emergency department for new or worsening symptoms including intolerable pain, numbness, weakness of one part of your body, inability to keep down fluids, or if you have any other concerns. Medical Decision Making 62yo F with hypertension, hypothyroid, presenting for generalized malaise. Flu-like symptoms starting yesterday, including new headache which is dull, moderate to severe, and nothing like she has experienced before. Vital signs reassuring, afebrile, no tachycardia. Not concerning for sepsis. Physical exam most consistent with sinusitis. No meningeal signs. No temporal tenderness or visual changes to suggest giant cell arteritis. Low suspicion for intracranial bleed or mass effect with normal neurologic exam however given associated nausea CT ordered; independently reviewed, no intracranial bleed on my view, agree with radiology read below. Given IVFB, tylenol, zofran for symptoms as well as toradoll. Labs reviewed as below, CBC & CMP reassuring with no actionable abnormalities, lactate normal. On reassessment reports headache improved, feels much better. Advised symptomatic treatment at home. Discharged home; discharge instructions including return precautions were reviewed with patient who verbalized understanding. All questions were answered and they are in full agreement with the plan. Imaging Data Radiologic Study: Imaging: CT Scan Radiologist's impression: IMPRESSION: No acute intracranial abnormality. Lab Data Lab results reviewed: Yes I reviewed the patient's lab results. Labs: Laboratory Tests Range/Units 04/07/23 04/07/23 04/07/23 16:07 16:07 16:07 WBC (4.4-10.8) 10^3/uL 8.17 RBC (3.93-5.22) 10^6/uL 5.03 Hgb (11.2-15.7) g/dL 15.7 Hct (36.0-46.0) % 46.2 H MCV (80-95) fL 92 MCH (27.0-33.0) pg 31.2 MCHC (32.0-36.0) % 34.0 RDW (11.7-14.6) % 13.3 Plt Count (130-400) 10^3/uL 195 MPV (8.0-11.0) fL 9.4 Immature Gran % 0.2 Neutrophils % 83.6 Lymphocytes % 3.7 Monocytes % 11.3 Eosinophils % 0.7 Basophils % 0.5 Nucleated RBC % (0.0-0.3) % 0.0 Absolute Neutrophils (1.2-6.7) 10^3/uL 6.83 H Absolute Lymphocytes (1.2-3.4) 10^3/uL 0.30 L Absolute Monocytes (0.1-0.8) 10^3/uL 0.92 H Absolute Eosinophils (0.0-0.7) 10^3/uL 0.06 Absolute Basophils (0.0-0.2) 10^3/uL 0.04 VBG Lactate (0.6-1.4) mmol/L 0.7 Sodium (136-145) mmol/L 135 L Potassium (3.5-5.1) mmol/L 4.0 Chloride (98-107) mmol/L 98 Carbon Dioxide (21.0-32.0) mmol/L 27.5 Anion Gap (3-11) mmol/L 9.5 BUN (7-18) mg/dL 10 Creatinine (0.55-1.02) mg/dL 0.9 Est GFR (CKD-EPI 2020) (mL/min/1.73m2) 71.39 Glucose (74-106) mg/dL 99 Calcium (8.5-10.1) mg/dL 9.5 Total Bilirubin (0.2-1.0) mg/dL 0.4 AST (15-37) U/L 20 ALT (14-59) U/L 28 Alkaline Phosphatase (46-116) U/L 78 Total Protein (6.4-8.2) g/dL 7.6 Albumin (3.4-5.0) g/dL 3.8 HPI General Date/Time Provider Initiated Documentation: 04/07/23 14:54. Limitations to Documentation: no limitations. Information obtained by: patient. HPI Narrative: 62yo F with hypertension, hypothyroid, presenting for generalized malaise. Reports symptoms started yesterday; body aches all over, chills, cough, nausea (no vomiting), headache. No medications taken at home. Headache is dull, frontal, located in the bridge of the nose and radiates bilaterally. + sinus congestion. Never had a similar headache before. Associated phonophobia. No numbness, tingling, focal weakness, vision changes, vertigo, or other concerns. No chest pain or difficulty breathing. She is otherwise in her usual state of health with no establish fever, rash, abdominal pain, LE edema, palpitations, or other concerns. Related Data Home Medications Medication Instructions Recorded Confirmed cyanocobalamin (vitamin B-12) 1,000 mcg PO DAILY 11/12/12 12/27/22 1,000 mcg tablet,extended release (Vitamin B-12 ER) albuterol sulfate 90 mcg/actuation 2 inh inhalation Q4H PRN PRN 03/21/15 12/27/22 aerosol inhaler budesonide-formoterol HFA 160 1 inh inhalation BID 03/21/15 12/27/22 mcg-4.5 mcg/actuation aerosol inhaler (Symbicort) methocarbamol 500 mg tablet 500 mg PO BID 02/04/17 12/27/22 hydrocodone 5 mg-acetaminophen 325 1 tab PO QHS PRN 12/27/20 12/27/22 mg tablet levothyroxine 112 mcg tablet 112 mcg PO Q OTHER DAY 12/27/20 12/27/22 levothyroxine 125 mcg tablet 125 mcg PO Q OTHER DAY 12/27/20 12/27/22 losartan 25 mg tablet 50 mg PO DAILY 12/27/20 12/27/22 omeprazole 20 mg capsule,delayed 20 mg PO DAILY 12/27/20 12/27/22 release venlafaxine 150 mg 150 mg PO DAILY 12/27/20 12/27/22 capsule,extended release 24 hr levofloxacin 750 mg tablet 750 mg PO DAILY #5 tabs 07/20/22 12/27/22 hydroxyzine HCl 25 mg tablet 25 mg PO QID PRN #10 tabs 03/27/23 prednisone 20 mg tablet 40 mg PO ONCE #10 tabs 03/27/23 Previous Rx's Medication Instructions Recorded levofloxacin 750 mg tablet 750 mg PO DAILY #5 tabs 07/20/22 hydroxyzine HCl 25 mg tablet 25 mg PO QID PRN #10 tabs 03/27/23 prednisone 20 mg tablet 40 mg PO ONCE #10 tabs 03/27/23 Allergies Allergy/AdvReac Type Severity Reaction Status Date / Time bee venom protein (honey bee) Allergy Intermediate Verified 12/27/22 13:43 Latex, Natural Rubber Allergy Intermediate Verified 12/27/22 13:43 varenicline [From Chantix] Allergy Intermediate Verified 12/27/22 13:43 bupropion [From Wellbutrin] Allergy Verified 12/27/22 13:43 tiotropium AdvReac Intermediate Verified 12/27/22 13:43 [From Spiriva with HandiHaler] General Stated Complaint: RespSymp NAYE: 4 Review of Systems Narrative: see [facility] PFSH All Active Problems (Updated 04/07/23 @ 18:18 by Meredith Olivier MD) Dermatitis (Acute) Ecchymosis (Acute) Malaise (Acute) Headache (Acute) Bursitis of right shoulder (Acute) Glenohumeral arthritis (Acute) Tubular adenoma of colon (Acute) Hypertension (Chronic) Thoracic aortic ectasia (Acute) Rib pain (Acute) Rash (Acute) Lingular pneumonia (Acute) Close exposure to COVID-19 virus (Acute) Dog bite (Acute) Medical History B12 deficiency Dysphagia Dyspnea on exertion GERD (gastroesophageal reflux disease) History of syncope Hypothyroidism Nasal polyp Social History Smoking/Tobacco Use Status: Current every day Tobacco Type: cigarettes Smoking risk assessment performed?: Yes Alcohol Intake: never Drug use: Daily Substance use type: marijuana Current gender identity: female Do you feel safe at home: Yes Do you feel safe in your relationship?: Yes Exam Narrative Exam Narrative: General: Alert, well appearing, well nourished, in no acute distress. Head: Normocephalic, atraumatic. No temporal tenderness. Neck: Trachea midline, Neck supple. ENT: MMM. No oropharygeal lesions or exudate. Cardiac: RRR, no murmurs appreciated Resp: No respiratory distress. CTAB. Abd: Soft, non-distended, nontender : No suprapubic tenderness. No CVA tenderness. Extremities: No deformities. No peripheral edema. Neurologic: CS 15. PERRL. EOMI. Fluent speech, no dysarthria. Normal sensation in V1, V2, and V3 segments bilaterally. No asymmetry, no nasolabial fold flattening. Normal hearing to speech. Normal palatal elevation. No uvular deviation. Midline tongue protrusion. - Kernig's -Brudsinskis Motor- 5/5 strength symmetric bilateral upper and lower extremities Sensation- Intact to light touch and symmetric multiple dermatomes including upper and lower extremities Coordination- No dysmetria on finger to nose Gait/station: Normal stance. No truncal ataxia. Steady gait with equal normal steps Course Vital Signs Vital signs: Vital Signs Temperature 37.1 C 04/07/23 14:33 Pulse 96 H 04/07/23 14:33 Respiratory Rate 18 04/07/23 14:33 Blood Pressure 169/86 H 04/07/23 14:33 Pulse Oximetry 95 04/07/23 14:33 Temperature 37.1 C 04/07/23 14:33 Temperature Source Skin 04/07/23 14:33 Pulse 96 H 04/07/23 14:33 Respiratory Rate 18 04/07/23 14:33 Blood Pressure 169/86 H 04/07/23 14:33 Blood Pressure Position Sitting 04/07/23 14:33 Pulse Oximetry 95 04/07/23 14:33 Oxygen Delivery Method Room Air 04/07/23 14:33 Oxygen Flow Rate 0 04/07/23 14:33 Pain Level 7 04/07/23 14:33
[2023-04-07] MEDS: Normal Saline 1,000 ML 1000 ML IV (16:10)
[2023-04-07 16:14] LABS: Lactate 0.7 mmol/L (0.6-1.4)
[2023-04-07 16:15] LABS: Abs Immature Grans 0.02 10^3/uL (0.0-0.06); Absolute Basophil Count 0.04 10^3/uL (0.0-0.2); Absolute Eosinophil Count 0.06 10^3/uL (0.0-0.7); Absolute Monocyte Count 0.92 10^3/uL (0.1-0.8); Absolute Neutrophil Count 6.83 10^3/uL (1.2-6.7); Basophils % 0.5; Eosinophils % 0.7; HCT 46.2 % (36.0-46.0); HGB 15.7 g/dL (11.2-15.7); Immature Grans % 0.2; Lymphocytes % 3.7; MCH 31.2 pg (27.0-33.0); MCV 92 fL (80-95); MPV 9.4 fL (8.0-11.0); Monocytes % 11.3; Neutrophils % 83.6; Platelet Count 195 10^3/uL (130-400); RBC 5.03 10^6/uL (3.93-5.22); RDW 13.3 % (11.7-14.6); RDW-SD 45.3 fL; WBC 8.17 10^3/uL (4.4-10.8)
[2023-04-07] MEDS: Ondansetron O.D.T. 4 MG TABEF PO (16:15)
[2023-04-07] MEDS: Acetaminophen 500 MG TAB 1000 MG PO (16:15)
--- NOTE | 2023-04-07 17:08 | DI.VRAD_ITS ---
PROCEDURE INFORMATION: Exam: CT Head Without Contrast Exam date and time: 04/07/2023 4:52 PM Age: 62 years old Clinical indication: Other: New severe headache with nausea TECHNIQUE: Imaging protocol: Computed tomography of the head without contrast. COMPARISON: CT BRAIN NECK CTA 05/24/2022 9:21 PM FINDINGS: Brain: No midline shift. Ventricles, cisterns, and sulci are normal. No mass, acute infarct, hemorrhage, or extraaxial fluid collection. Cerebral ventricles: No ventriculomegaly. Paranasal sinuses: Visualized sinuses are unremarkable. No fluid levels. Mastoid air cells: Visualized mastoid air cells are well aerated. Bones/joints: Unremarkable. No acute fracture. Soft tissues: Unremarkable. IMPRESSION: No acute intracranial abnormality. Dictated and Authenticated by: Nicola Nixon MD. Ordering:ROBIN Harper MD
[2023-04-07] MEDS: Ketorolac 15 MG/ML VIAL IM (17:29)
[2023-04-07 17:32] LABS: ALT 28 U/L (14-59); AST 20 U/L (15-37); Albumin 3.8 g/dL (3.4-5.0); Alkaline Phosphatase 78 U/L (46-116); Anion Gap 9.5 mmol/L (3-11); BUN 10 mg/dL (7-18); Bilirubin, Total 0.4 mg/dL (0.2-1.0); CO2 27.5 mmol/L (21.0-32.0); CREATININE 0.9 mg/dL (0.55-1.02); Calcium 9.5 mg/dL (8.5-10.1); Chloride 98 mmol/L (98-107); Estimated GFR 71.39 (mL/min/1.73m2); Glucose 99 mg/dL (74-106); Sodium 135 mmol/L (136-145); Total Protein 7.6 g/dL (6.4-8.2)
[2023-04-07 18:30] VITALS: BP 120/79; BP 124/70; PULSE 80; PULSE 86; RESP 16; TEMP 36.2; O2SAT 93
== END 2023-04-07 18:53 | disposition home or self-care (01) ==
PROVIDERS: Emergency Provider Student in an Organized Health Care Education/Training Program; PCP Family Medicine
DX: R51.9 Headache, unspecified (principal); R11.2 Nausea with vomiting, unspecified; R05.9 Cough, unspecified; F17.210 Nicotine dependence, cigarettes, uncomplicated
CPT/HCPCS: 36415; 80053; 87426; 96360; 96372; 99283; 70450; 83605; 85025; J1885

== ENCOUNTER 2023-09-12 17:29 | Outpatient (REF) | payer MEDICARE, MEDICAID, SELFPAY ==
[2023-09-12 19:40] LABS: FREE T4 1.48 ng/dL (0.76-1.46); TSH 0.25 uIU/Ml (0.36-3.74)
[2023-09-12 19:55] LABS: Calculated LDL 126 mg/dL (<100); Cholesterol 226 mg/dL (<200); HDL Cholesterol 81 mg/dL (40-60); Triglyceride 99 mg/dL (<150)
== END 2023-09-12 17:30 | disposition home or self-care (01) ==
LOC: NCHCN 17:29
PROVIDERS: PCP Family Medicine; Visit Provider Family Medicine
DX: E03.9 Hypothyroidism, unspecified (principal); I10 Essential (primary) hypertension
CPT/HCPCS: 80061; 84439; 84443

== ENCOUNTER → 2023-12-04 03:26 | Outpatient (CLI) | payer MEDICARE, MEDICAID, SELFPAY ==
--- NOTE | 2023-12-04 | DI.MAMMO_ITS ---
Exam(s) MAMMO SCREENING EXAM: MAMMO SCREENING CLINICAL HISTORY: SCREENING, Z12.31. TECHNIQUE: Bilateral full field digital CC and MLO mammographic images were obtained with 3D tomosyn thesis and utilizing computer aided detection (CAD). COMPARISON: Prior mammograms were reviewed. FINDINGS: There has been no significant change in the appearance and distribution of the fibroglandular tissue. There are no CAD designations. On the CC views there are similar-appearing asymmetric densities bilaterally which appear to have sli ghtly increased in size from prior studies. Spot compression views and ultrasound recommended. There are no malignant-appearing microcalcification groups in these regions nor elsewhere in either b reast. No significant architectural distortion or skin thickening-retraction. There is no significant architectural distortion nor skin thickening-retraction. IMPRESSION: 1. Asymmetric density-possible nodules, one in each breast. Bilateral spot compression CC views and ultrasound recommended. BI-RADS Category 0 - Assessment Incomplete: Need additional imaging evaluation Breast Density - Category B - Scattered areas of fibroglandular density Breast density Category C or D implies that the patient has dense breast tissue. Dense breast tissue can make it harder to find cancer on a mammogram. Dense breast tissue is also associated with an incr eased risk of breast cancer. This information about the result of the mammogram report was provided to the patient to raise their awareness. Use this report when you speak with the patient about their risks for breast cancer, which includes their family history. At that time, you may recommend additional screening tests (Ultrasoun d or MRI) as these tests may add significant information. A negative radiographic report should not delay biopsy if a dominant or clinically suspicious mass is present. Up to ten percent of cancers are not identified on mammography. A negative report may reinforce clinical impression. Adenosis and dense breasts may obscure an underlying neoplasm. False positive reports average 6 to 10%. Patient will receive a letter notifying them of these results.
--- NOTE | 2023-12-04 | DI.CTLCSR_ITS ---
Exam(s) CT CHEST LUNG CANCER SCREEN EXAM: CT CHEST LUNG CANCER SCREEN CLINICAL HISTORY: Nicotine dependence, F17.210 TECHNIQUE: Imaging Protocol: Axial computed tomography images with coronal and sagittal reformatted images were created and reviewed. Low dose screening protocol. COMPARISON: CT CT CHEST LUNG CANCER SCREEN from 06/21/2022 FINDINGS: Tracheobronchial tree: No bronchiectasis or mucus plugging. Mediastinum and Baylee: No dominant adenopathy or fluid collection. Pulmonary parenchyma: No consolidation or dominant measurable mass. Improvement in previously noted reticulonodular infiltrate in the lingula. Moderate emphysematous changes. Lung Nodules: None. Pleura: No effusion. No pneumothorax. Heart: The heart is not dilated. [id number] coronary artery calcifications are seen. Aorta: Ascending aorta measures 3.8 cm on today's exam. Upper abdomen: Unremarkable. Bones: Unremarkable for age. Soft Tissues: Unremarkable. IMPRESSION: No suspicious pulmonary nodules. Lung RADS Cat 1 - Negative: No nodules and definitely benign nodules Lung-RADS 1.0 CATEGORIES: Category 0 - Prior chest CT exam(s) being located for comparison. Category 1 - Annual screening in 12 months. No nodules or definitely benign nodules. Category 2 - Annual screening in 12 months. Benign appearance. Nodules with low likelihood of becomin g active cancer. Category 3 - 6-month follow-up. Probably benign. Short-term follow-up suggested. Nodules with low lik elihood of becoming active cancer. Category 4A - 3-month follow-up and CT/PET if >8 mm in size. Suspicious finding. Findings which requi re additional testing. Category 4B - Findings which require additional testing and tissue sampling. Category 4X - Category 3 or 4 nodules with additional features or imaging findings that increases the suspicion of malignancy. Modifier S- Potentially clinically significant findings (non lung cancer) RADIATION DOSE DELIVERED: 82.03mGy.cm Total DLP DATA REPOSITORY: All CT scans at this facility are submitted to the National Radiology Data Registry (NRDR) Dose Index Registry (DIR) with the [employer] (ACR). RADIATION OPTIMIZATION: All CT scans at this facility use at least one of these dose optimization te chniques: automated exposure control; mA and/or kV adjustment per patient size (includes targeted exa ms where dose is matched to clinical indication); or iterative reconstruction.
== END ==
PROVIDERS: PCP Family Medicine; Visit Provider Family Medicine
DX: F17.210 Nicotine dependence, cigarettes, uncomplicated (principal); Z12.31 Encounter for screening mammogram for malignant neoplasm of breast; R92.8 Other abnormal and inconclusive findings on diagnostic imaging of breast; Z12.2 Encounter for screening for malignant neoplasm of respiratory organs
CPT/HCPCS: 71271; 77063; 77067

== ENCOUNTER → 2023-12-12 00:27 | Outpatient (CLI) | payer MEDICARE, MEDICAID, SELFPAY ==
--- NOTE | 2023-12-12 09:10 | DI.MAMMO_ITS ---
Exam(s) US BREAST RT LIMITED US BREAST LT LIMITED MG MAMMO SCREEN CALL BACK BI EXAM: MG MAMMO SCREEN CALL BACK BI and U/S breast bilateral limited CLINICAL HISTORY: F/U ABNL MAMMO, R92.8 ASYMMETRIC DENSITY, POSSIBLE NODULES RT AND LT. TECHNIQUE: Craniocaudal and mediolateral oblique Full Field Digital Mammography views of the bilater al breast with Computer Aided Diagnosis followed by Tomosynthesis and limited bilateral breast ultras ound. COMPARISON: Comparison is made with prior examinations. FINDINGS: Mammography/Tomosynthesis: Masses/Architectural Distortion: The area in the left breast appears represent fibroglandular tissue. The area in the right breast is less prominent compared to the prior examinations. Microcalcifictions: No suspicious pleomorphic-type are seen. Skin Thickening/Nipple Retraction: None. Limited bilateral breast US: The medial half of the left breast was evaluated sonographically from 5: 00 to 1:00. Limited right breast ultrasound was performed. Echotexture: Normal appearance of the glandular tissue. Shadowing: No suspicious foci. Cyst: No cystic masses are seen in the left breast. There is a 0.4 cm simple cyst at the 11 o'clock position of the right breast 1 cm from the nipple. This would not correspond to the mammographic abn ormality. Solid lesions: No solid masses are seen in the left breast. No solid masses are seen in the right br east to correspond to the mammographic abnormality. Ductal dilation: None. IMPRESSION: 1. No evidence of malignancy is noted. 2. A six-month follow-up bilateral mammogram is requested for re-evaluation. 3. The findings were discussed with the patient on the date of the examination. BI-RADS Category 3 - 6 month - Probably Benign Finding: Recommend follow-up imaging in 6 months Breast Density - Category B - Scattered areas of fibroglandular density Breast density Category C or D implies that the patient has dense breast tissue. Dense breast tissue can make it harder to find cancer on a mammogram. Dense breast tissue is also associated with an incr eased risk of breast cancer. This information about the result of the mammogram report was provided to the patient to raise their awareness. Use this report when you speak with the patient about their risks for breast cancer, which includes their family history. At that time, you may recommend additional screening tests (Ultrasoun d or MRI) as these tests may add significant information. A negative radiographic report should not delay biopsy if a dominant or clinically suspicious mass is present. Up to ten percent of cancers are not identified on mammography. A negative report may reinforce clinical impression. Adenosis and dense breasts may obscure an underlying neoplasm. False positive reports average 6 to 10%. Patient will receive a letter notifying them of these results.
== END ==
PROVIDERS: PCP Family Medicine; Visit Provider Family Medicine
DX: R92.8 Other abnormal and inconclusive findings on diagnostic imaging of breast (principal); Z12.31 Encounter for screening mammogram for malignant neoplasm of breast
CPT/HCPCS: 76642; 77063; 77067

== ENCOUNTER → 2023-12-14 02:18 | Outpatient (CLI) | payer MEDICARE, MEDICAID, SELFPAY ==
--- NOTE | 2023-12-14 | DI.DEXA_ITS ---
Exam(s) XR DEXA BONE DENSITY W/WO VICKY EXAM: XR DEXA BONE DENSITY W/WO VICKY CLINICAL HISTORY: POSTMENOPAUSAL STATE, Z78.0, SCREENING TECHNIQUE: COMPARISON: No exams were available for comparison FINDINGS: Lateral Spine Image: Unremarkable. No compression deformities identified. Left hip: Total T-Score: -1.1 Total Z-Score: 0.1 T- and Z-scores: Findings are consistent with osteopenia. No evidence of osteoporosis. Lumbar Spine: Total T-Score: -0.4 Total Z-Score: 1.3 T- and Z-scores: Within normal limits. Left forearm: Total T-score:-2.2. Total Z-score:-0.6. Findings are consistent with osteopenia. There is osteoporosis in the mid left forearm with a total T-score of -2.5. IMPRESSION: Osteoporosis seen in the mid left forearm. No evidence of osteoporosis in the left hip or lumbar spi ne.
== END ==
PROVIDERS: PCP Family Medicine; Visit Provider Family Medicine
DX: Z78.0 Asymptomatic menopausal state (principal); Z13.820 Encounter for screening for osteoporosis; M81.0 Age-related osteoporosis without current pathological fracture
CPT/HCPCS: 77080

== ENCOUNTER 2023-12-14 16:14 | Outpatient (REF) | payer MEDICARE, MEDICAID, SELFPAY ==
[2023-12-14 16:45] LABS: ALT 28 U/L (14-59); AST 25 U/L (15-37); Albumin 4.1 g/dL (3.4-5.0); Alkaline Phosphatase 70 U/L (46-116); Anion Gap 7.8 mmol/L (3-11); BUN 12 mg/dL (7-18); Bilirubin, Total 0.5 mg/dL (0.2-1.0); CO2 32.2 mmol/L (21.0-32.0); CREATININE 0.8 mg/dL (0.55-1.02); Calculated LDL 71 mg/dL (<100); Chloride 99 mmol/L (98-107); Cholesterol 164 mg/dL (<200); Estimated GFR 81.72 (mL/min/1.73m2); Glucose 93 mg/dL (74-106); HDL Cholesterol 82 mg/dL (40-60); Potassium 4.5 mmol/L (3.5-5.1); Sodium 139 mmol/L (136-145); TSH (W/Ref FT4) 0.73 uIU/mL (0.36-3.74); Total Protein 7.2 g/dL (6.4-8.2); Triglyceride 57 mg/dL (<150)
== END 2023-12-14 16:15 | disposition home or self-care (01) ==
LOC: NCHCN 16:14
PROVIDERS: PCP Family Medicine; Visit Provider Family Medicine
DX: E03.9 Hypothyroidism, unspecified (principal)
CPT/HCPCS: 80053; 80061; 84443

== ENCOUNTER 2024-03-12 17:31 | Outpatient (REF) | payer MEDICARE, MEDICAID, SELFPAY ==
--- NOTE | 2024-03-12 15:25 | SKI_PTH ---
PATIENT: Priscilla Jolly LOC: NCN #:[id number] AGE/SX: 63/F ROOM: RE03/12/[address]: Melanie Cheng V : 1960 BED: DIS: 03/12/2024 SPEC #: [id number] RECD: 03/13/24 12:49 STATUS: ANYA ROBLES #: [id number] CARRILLO: 03/12/24 15:[address]: Melanie Cheng V DEPT: Surgical Specimen RECD BY: Gloria Zapata Tissues: 1 - SKIN BIOPSY(SHAVE/PUNCH) Procedures: SKIN LEVEL 4 Comments: [id number]
== END 2024-03-12 17:32 | disposition home or self-care (01) ==
LOC: NCHCN 17:31
PROVIDERS: PCP Family Medicine; Visit Provider Family Medicine
DX: L98.9 Disorder of the skin and subcutaneous tissue, unspecified (principal); L57.0 Actinic keratosis
CPT/HCPCS: 88305

== ENCOUNTER 2024-03-14 02:05 | Outpatient (CLI) | payer MEDICARE, MEDICAID, SELFPAY ==
--- NOTE | 2024-03-14 | DI.RAD_ITS ---
Exam(s) XR KNEE LT 3V AP,LAT,ADIN EXAM: XR KNEE LT 3V AP,LAT,DAIN CLINICAL HISTORY: M25.562 Pain in left knee. TECHNIQUE: 2D digital imaging was performed. Three views. COMPARISON: CR LEFT KNEE LIMITED 1 OR 2 VIEWS from 08/25/2010 FINDINGS: BONES: No acute fracture is present. No bony destructive lesion is seen. Enthesophyte upper pole p atella. JOINTS: The knee is normally aligned. No joint effusion is seen. Joint spaces are maintained. SOFT TISSUE: Stable appearance of calcification at the femoral attachment of the medial collateral li gament. IMPRESSION: No acute abnormality. DATA REPOSITORY: RADIATION DOSE DELIVERED:
== END 2024-03-14 02:25 ==
LOC: DI 02:05
PROVIDERS: PCP Family Medicine; Visit Provider Family Medicine
DX: M25.562 Pain in left knee (principal)
CPT/HCPCS: 73562

== ENCOUNTER 2024-05-11 10:46 | Emergency (ER) | payer MEDICARE, MEDICAID, SELFPAY ==
[2024-05-11] VITALS (10 sets, daily range): BP systolic 137–163; BP diastolic 69–94; PULSE 61–94; RESP 11–30; TEMP 36.7; O2SAT 91–98
--- NOTE | 2024-05-11 11:15 | DI.RAD_ITS ---
Exam(s) XR CHEST 2V PA LATERAL EXAM: XR CHEST 2V PA LATERAL CLINICAL HISTORY: cough. TECHNIQUE: 2D digital imaging was performed. COMPARISON: CR,XR XR PORTABLE CHEST AP from 07/19/2022 FINDINGS: 2 views: Heart size is normal. The mediastinum is not widened. No infiltrates nor pleural effusions. Mild blunting of the right costophrenic angle appears unchanged from previous. Other pleural thicken ing or small pleural effusion. No evidence of pulmonary edema. IMPRESSION: No acute infiltrates. Mild blunting of the right costophrenic angle noted possibly indicating small pleural effusion or pleural thickening. DATA REPOSITORY: RADIATION DOSE DELIVERED:
--- NOTE | 2024-05-11 11:22 | ED.GENADUL_ITS ---
Discharge Plan Disposition Patient Disposition: Home Condition: Stable Discharge Details Clinical Impression: URI (upper respiratory infection), COPD exacerbation Primary Care Provider: Melanie Cheng V ED Provider: Jani Franks Home Meds and New Rx's Prescriptions: New prednisone 20 mg tablet 40 mg PO DAILY 5 Days Qty: 10 0RF promethazine 6.25 mg/5 mL syrup 12.5 mg PO Q6H PRN (Reason: cough) Qty: 120 0RF doxycycline hyclate 100 mg capsule 100 mg PO BID 5 Days Qty: 10 0RF No Action cyanocobalamin (vitamin B-12) [Vitamin B-12] 1,000 MCG tablet extended release 1,000 mcg PO DAILY albuterol sulfate 8.5 GM HFA aerosol inhaler 2 inh Inhalation Q4H PRN PRN budesonide-formoterol [Symbicort] 60 PUFF HFA aerosol inhaler 1 inh Inhalation BID methocarbamol 500 MG tablet 500 mg PO BID hydrocodone-acetaminophen 5-325 mg tablet 1 tab PO QHS PRN Patient Comments: TAKE 1 TABLET BY MOUTH ONCE DAILY AT BEDTIME AND UP TO 5 ADDITIONAL TABLETS PER MONTH NEEDED FOR PAIN Rx Instructions: TAKE 1 TABLET BY MOUTH ONCE DAILY AT BEDTIME AND UP TO 5 ADDITIONAL TABLETS PER MONTH NEEDED FOR PAIN venlafaxine 150 mg capsule,extended release 24hr 150 mg PO DAILY levothyroxine 125 mcg tablet 125 mcg PO Q OTHER DAY Patient Comments: TAKE 1 TABLET BY MOUTH EVERY OTHER DAY losartan 25 mg tablet 50 mg PO DAILY Patient Comments: TAKE ONE TABLET BY MOUTH EVERY DAY omeprazole 20 mg capsule,delayed release(DR/EC) 20 mg PO DAILY Patient Comments: TAKE 1 CAPSULE BY MOUTH ONCE DAILY levothyroxine 112 mcg tablet 112 mcg PO Q OTHER DAY Patient Comments: TAKE 1 TABLET BY MOUTH EVERY OTHER DAY levofloxacin 750 mg tablet 750 mg PO DAILY Qty: 5 0RF prednisone 20 mg tablet 40 mg PO ONCE Qty: 10 0RF hydroxyzine HCl 25 mg tablet 25 mg PO QID PRNQty: 10 0RF tizanidine 4 mg tablet 4 mg PO BID Patient Comments: TAKE ONE TABLET BY MOUTH TWICE A DAY NEEDED FOR MUSCLE RELAXANT docusate sodium 100 mg capsule 100 mg PO BID Patient Comments: TAKE ONE CAPSULE BY MOUTH TWICE A DAY NEEDED simvastatin 20 mg tablet 20 mg PO DAILY Patient Comments: TAKE ONE TABLET BY MOUTH EVERY DAY Discharge Instructions Instructions: COPD Exacerbation, Adult ED Additional Instructions: * Viral testing is negative * Will treat for COPD exacerbation with antibiotics * start the steroids tomorrow * use your albuterol inhaler/nebulizer every 4 hours for the next 24 hours * cough syrup prescription sent to pharmacy * return with fever or worsening symptoms HPI General Date/Time Provider Initiated Documentation: 05/11/24 11:03 . Limitations to Documentation: no limitations . Information obtained by: patient . HPI Narrative: 63 y F with PMH of HTN, tobacco abuse, COPD presents for evaluation of cough. symptoms started yesterday. cough is productive of thin mucus. not associated wtih fever. is having headaches and generalized body aches. has been using her symbicort twice daily. and think shes maybe used her albuterol inhaler once. Related Data Home Medications ?Medication ?Instructions ?Recorded ?Confirmed cyanocobalamin (vitamin B-12) 1,000 mcg PO DAILY 11/12/12 05/11/24 1,000 mcg tablet,extended release (Vitamin B-12 ER) albuterol sulfate 90 mcg/actuation 2 inh inhalation Q4H PRN PRN 03/21/15 05/11/24 aerosol inhaler budesonide-formoterol HFA 160 1 inh inhalation BID 03/21/15 05/11/24 mcg-4.5 mcg/actuation aerosol inhaler (Symbicort) methocarbamol 500 mg tablet 500 mg PO BID 02/04/17 05/11/24 hydrocodone 5 mg-acetaminophen 325 1 tab PO QHS PRN 12/27/20 05/11/24 mg tablet levothyroxine 112 mcg tablet 112 mcg PO Q OTHER DAY 12/27/20 05/11/24 levothyroxine 125 mcg tablet 125 mcg PO Q OTHER DAY 12/27/20 05/11/24 losartan 25 mg tablet 50 mg PO DAILY 12/27/20 05/11/24 omeprazole 20 mg capsule,delayed 20 mg PO DAILY 12/27/20 05/11/24 release venlafaxine 150 mg 150 mg PO DAILY 12/27/20 05/11/24 capsule,extended release 24 hr levofloxacin 750 mg tablet 750 mg PO DAILY #5 tabs 07/20/22 05/11/24 hydroxyzine HCl 25 mg tablet 25 mg PO QID PRN #10 tabs 03/27/23 05/11/24 prednisone 20 mg tablet 40 mg (2 x 20 mg) PO ONCE #10 tabs 03/27/23 05/11/24 docusate sodium 100 mg capsule 100 mg PO BID 05/11/24 05/11/24 doxycycline hyclate 100 mg capsule 100 mg PO BID 5 days #10 caps 05/11/24 prednisone 20 mg tablet 40 mg (2 x 20 mg) PO DAILY 5 days 05/11/24 #10 tabs promethazine 6.25 mg/5 mL oral 12.5 mg (10 mL) PO Q6H PRN cough 05/11/24 syrup #120 mL simvastatin 20 mg tablet 20 mg PO DAILY 05/11/24 05/11/24 tizanidine 4 mg tablet 4 mg PO BID 05/11/24 05/11/24 Previous Rx's ?Medication ?Instructions ?Recorded levofloxacin 750 mg tablet 750 mg PO DAILY #5 tabs 07/20/22 hydroxyzine HCl 25 mg tablet 25 mg PO QID PRN #10 tabs 03/27/23 prednisone 20 mg tablet 40 mg (2 x 20 mg) PO ONCE #10 tabs 03/27/23 doxycycline hyclate 100 mg capsule 100 mg PO BID 5 days #10 caps 05/11/24 prednisone 20 mg tablet 40 mg (2 x 20 mg) PO DAILY 5 days 05/11/24 #10 tabs promethazine 6.25 mg/5 mL oral 12.5 mg (10 mL) PO Q6H PRN cough 05/11/24 syrup #120 mL Allergies Allergy/AdvReac Type Severity Reaction Status Date / Time bee venom protein (honey bee) Allergy Intermediate Anaphylaxis Verified 05/11/24 11:03 Latex, Natural Rubber Allergy Intermediate Topical Verified 05/11/24 11:03 Irritation varenicline (From Chantix) Allergy Intermediate Other (See Verified 05/11/24 11:03 Comment) bupropion (From Wellbutrin) Allergy Other (See Verified 05/11/24 11:03 Comment) tiotropium (From Spiriva AdvReac Intermediate Other (See Verified 05/11/24 11:03 with HandiHaler) Comment) General Stated Complaint: RespSymp NAYE: 3 Exam Narrative Exam Narrative: Review of Systems: All systems reviewed & are unremarkable except as noted in HPI and below Well-developed, no acute distress Afebrile NCAT Bilateral TMs are unremarkable RRR Mild tachypnea, no increased work of breathing, no hypoxia, poor air movement bilaterally Extremities w/o edema Course Vital Signs Vital signs: Vital Signs Temperature 36.7 C 05/11/24 10:49 Pulse 94 H 05/11/24 10:49 Respiratory Rate 30 H 05/11/24 10:49 Blood Pressure 163/94 H 05/11/24 10:49 Pulse Oximetry 93 05/11/24 10:49 Temperature 36.7 C 05/11/24 10:58 Pulse 94 H 05/11/24 10:58 Respiratory Rate 30 H 05/11/24 10:58 Respiratory Effort Short of Breath, Labored 05/11/24 11:16 Respiratory Depth Normal 05/11/24 11:16 Blood Pressure 163/94 H 05/11/24 10:58 Blood Pressure Position Sitting 05/11/24 10:49 Pulse Oximetry 93 05/11/24 10:58 Oxygen Delivery Method Room Air 05/11/24 10:58 Oxygen Flow Rate 0 05/11/24 10:58 Medical Decision Making Urgent evaluation of cough and shortness of breath. Patient has significant tach tobacco use history. She has poor air movement bilaterally but is not hypoxic or having signs of significant respiratory distress. Initial differential includes COPD exacerbation, pneumonia, viral illness. Will give bronchodilator treatment and steroids. Will do chest x-ray to evaluate for consolidative process. 1230 Chest x-ray reviewed and independently interpreted: hyperexpanded, No focal consolidation, normal heart size, no pulmonary edema or pleural effusion. Viral testing negative. Has received breathing treatments and steroids. Her air movement has improved. Her respiratory rate has improved to 15. Will discharge with doxycycline for atypical coverage given her COPD history. Steroids for 5 days. Also provided promethazine syrup to use as needed for cough. Patient has albuterol at home and should use it for the next 24 hours every 4 hours. Return precautions advised. Close follow-up with PCP recommend ed Quality:SDOH Health Related Social Needs: No Data to Display PFSH All Active Problems (Updated 05/11/24 @ 12:49 by Jani Franks MD) COPD exacerbation (Acute) URI (upper respiratory infection) (Acute) Bursitis of right shoulder (Acute) Glenohumeral arthritis (Acute) Tubular adenoma of colon (Acute) Hypertension (Chronic) Thoracic aortic ectasia (Acute) Rib pain (Acute) Rash (Acute) Lingular pneumonia (Acute) Close exposure to COVID-19 virus (Acute) Dog bite (Acute) Medical History Nasal polyp B12 deficiency GERD (gastroesophageal reflux disease) Hypothyroidism History of syncope Dyspnea on exertion Dysphagia Social History Smoking/Tobacco Use Status: Current every day Tobacco Type: cigarettes Smoking risk assessment performed?: Yes Alcohol Intake: never Drug use: Daily Substance use type: marijuana Current gender identity: female Do you feel safe at home: Yes Do you feel safe in your relationship?: Yes
[2024-05-11] MEDS: Albuterol/Ipratropium 3 ML UPD VIAL UPD ×3 (11:29→11:30)
[2024-05-11] MEDS: predniSONE 20 MG TAB 40 MG PO (11:29)
--- NOTE | 2024-05-11 13:17 | DI.VRAD_ITS ---
PROCEDURE INFORMATION: Exam: XR Chest Exam date and time: 05/11/2024 12:27 PM Age: 63 years old Clinical indication: Cough TECHNIQUE: Imaging protocol: Radiologic exam of the chest. Views: 2 views. COMPARISON: CT CHEST LUNG CANCER SCREEN 04/12/2023 14:52 FINDINGS: Lungs: No focal consolidation. Large lung volumes. Pleural spaces: Blunting of the posterior and right lateral costophrenic angle. Heart/Mediastinum: Unremarkable. No cardiomegaly. Diaphragm: Flattening of the hemidiaphragms. Bones/joints: Unremarkable for patient's age. IMPRESSION: No acute cardiopulmonary findings. Dictated and Authenticated by: Pretty Greer MD. Ordering:[facility] Golden Ferguson MD
== END 2024-05-11 13:03 | disposition home or self-care (01) ==
PROVIDERS: Emergency Provider Emergency Medicine; PCP Family Medicine
DX: J44.1 Chronic obstructive pulmonary disease with (acute) exacerbation (principal); J06.9 Acute upper respiratory infection, unspecified; F17.210 Nicotine dependence, cigarettes, uncomplicated; I10 Essential (primary) hypertension
CPT/HCPCS: 87426; 99284; 71046; J7512; J7620

== ENCOUNTER 2024-06-20 01:53 | Outpatient (CLI) | payer MEDICARE, MEDICAID, SELFPAY ==
--- NOTE | 2024-06-20 13:45 | DI.MAMMO_ITS ---
Exam(s) MAMMO DIAGNOSTIC BI EXAM: MAMMO DIAGNOSTIC BI CLINICAL HISTORY: 6-mo f/u bilat mammogram, R92.8,rt breast cyst, lt fibroglandular tissue TECHNIQUE: Mammograms were interpreted according to the usual protocol including computer analysis w [employer] CAD system, tomosynthesis and C-view imaging. COMPARISON: 12/04/2023 and exams back to 2017. FINDINGS: The breasts are composed of scattered fibroglandular densities, Breast Density category B. No suspicious masses or suspicious microcalcifications are seen. No area of nodularity is seen in th e left breast as was questioned on the recent exam. There is a stable area of isodense nodularity in the central right breast which appears unchanged back to 2017. No skin thickening or abnormal axillary lymph nodes are seen. There has been no significant change from prior exams. IMPRESSION: BI-RADS Category 2 - Benign Findings Yearly screening mammography is recommended. Breast Density - Category B, scattered fibroglandular densities. A negative radiographic report should not delay biopsy if a dominant or clinically suspicious mass is present. Up to ten percent of cancers are not identified on mammography. A negative report may reinforce clinical impression. Adenosis and dense breasts may obscure an underlying neoplasm. False positive reports average 6 to 10%. Patient will receive a letter notifying them of these results.
== END 2024-06-20 02:13 ==
PROVIDERS: PCP Family Medicine; Visit Provider Family Medicine
DX: Z12.31 Encounter for screening mammogram for malignant neoplasm of breast (principal); R92.8 Other abnormal and inconclusive findings on diagnostic imaging of breast
CPT/HCPCS: 77062; 77066; G0279

== ENCOUNTER 2024-10-25 00:21 | Outpatient (CLI) | payer MEDICARE, MEDICAID, SELFPAY ==
--- NOTE | 2024-10-25 14:57 | DI.RAD_ITS ---
Exam(s) XR LUMBAR SPINE COMPLETE EXAM: XR LUMBAR SPINE COMPLETE CLINICAL HISTORY: M54.50 Low back pain,unspecified. TECHNIQUE: 2D digital imaging was performed. Five views. COMPARISON: CT CT ABDOMEN PELVIS W from 05/30/[address] CHEST LUNG CANCER SCREEN from 12/04/2023 CR XR DEXA BONE DENSITY W/WO VICKY from 12/14/2023 CR,XR XR CHEST 2V PA LATERAL from 05/11/2024 FINDINGS: BONES: No fracture or destructive lesion. Vertebral body heights are maintained. Mild facet hyper trophy identified at L4-5 and L5-S1. DISKS: Moderate severe narrowing of the L1-2 disc space. Moderate to severe narrowing of the L2-3 th rough L4-5 disc space. Endplate osteophytes at these levels. The L5-S1 disc space is maintained. ALIGNMENT: Levoscoliosis. SOFT TISSUE: Normal. IMPRESSION: Moderate to severe degenerative disc changes at L 1-2 through L4-5. Levoscoliosis. DATA REPOSITORY: RADIATION DOSE DELIVERED:
== END 2024-10-25 00:41 ==
LOC: DI 00:21
PROVIDERS: PCP Family Medicine; Visit Provider Family Medicine
DX: M41.86 Other forms of scoliosis, lumbar region (principal)
CPT/HCPCS: 72110

== ENCOUNTER 2024-12-19 02:27 | Outpatient (CLI) | payer MEDICARE, MEDICAID, SELFPAY ==
--- NOTE | 2024-12-19 | DI.MRI_ITS ---
Exam(s) MR LUMBAR SPINE WO EXAM: MR LUMBAR SPINE WO CLINICAL HISTORY: Other LBP, M54.49. TECHNIQUE: Multiplanar multisequence MRI of the Lumbar spine was performed. COMPARISON: CR XR LUMBAR SPINE COMPLETE from 10/25/2024 FINDINGS: Conus medullaris is at normal level. There is no evidence of conus mass nor subjacent clumping of in trathecal nerve roots to suggest arachnoiditis. The distal thecal sac appears unremarkable.There is no evidence of Tarlov intrasacral cysts nor other significant findings within the sacral canal Bones:There are no fractures nor ominous osseous lesions in the lumbar vertebral bodies and visualize d sacrum. There is degenerative scoliosis convex left. With respect to the individual levels... T12-L1: Unremarkable L1-2: There is chronic advanced disc space narrowing at this level. Mild symmetrical annular bulging without a dominant disc herniation. Central canal dimensions are lower normal. There is mild annul ar bulging into the floor of the exiting neural foramina but there is no foraminal stenosis on the ri ght side and only mild foraminal stenosis on the left side. Mild degenerative changes in the facet j oints. L2-3: This level exhibits asymmetric disc space narrowing on the right side of the disc space, this c ontributing to the degenerative scoliosis. There is relatively symmetrical annular bulging without a dominant disc herniation and central canal dimensions are lower normal. No significant foraminal st enosis on the left side. Mild foraminal stenosis on the right side. Mild facet arthropathy, slightl y more prominent on the right side. L3-4: This level exhibits disc space narrowing more so right than left and there are lateral right os teophytes noted. Posteriorly there is broad relatively annular bulging, slightly more so on the righ t side where the annular bulging extends into the diminished height exiting right neural foramen resu lting in moderate unilateral right-sided foraminal stenosis. There is no foraminal stenosis on the o pposite-left side at this level. L4-5: This level exhibits chronic disc space narrowing and some Modic type 1 sub endplate marrow miya a changes. Posteriorly there is broad annular bulging with superimposed central subligamentous disc protrusion which extends posteriorly 6 mm, indenting the thecal sac. Annular bulging extends into th e floor of the exiting neural foramina bilaterally and there is moderate-severe foraminal stenosis on the right side and moderate foraminal stenosis on the left side at this level. There are moderate d egenerative changes in the facet joints mild central spinal canal stenosis. L5-S1: This level exhibits normal height and disc signal. No disc herniation at this level. No cent ral canal stenosis. Also no significant foraminal stenosis. Soft tissues: paraspinal soft tissues appear unremarkable. IMPRESSION: 1. Multilevel findings as described per individual level above. 2. The most significant findings appear to be at L4-5 level where there is a subligamentous which is most and revealed levels annular bulging at this level extends into the exiting neural foramen and re sults in 3rd-severe foraminal stenosis on the right side and moderate degenerative foraminal stenosis on the left side. 3. No fractures nor significant listhesis. No concerning osseous lesions. Other findings as above. DATA REPOSITORY:
--- NOTE | 2024-12-19 13:35 | DI.RAD_ITS ---
Exam(s) XR EYE FOREIGN BODY EXAM: XR EYE FOREIGN BODY INDICATION: Prior to MRI, foreign body in unspecified part of eye. COMPARISON: No exams were available for comparison TECHNIQUE: 2D digital imaging was performed. Two views were obtained. FINDINGS: No radiopaque foreign bodies are seen in the orbits. IMPRESSION: DATA REPOSITORY: RADIATION DOSE DELIVERED:
== END 2024-12-19 02:47 ==
LOC: DI 02:27
PROVIDERS: PCP Family Medicine; Visit Provider Family Medicine
DX: M48.061 Spinal stenosis, lumbar region without neurogenic claudication (principal); T15.90XA Foreign body on external eye, part unspecified, unspecified eye, initial encounter; Z01.818 Encounter for other preprocedural examination
CPT/HCPCS: 70030; 72148

== ENCOUNTER 2025-02-07 15:25 | Outpatient (REF) | payer MEDICARE, MEDICAID, SELFPAY ==
[2025-02-07 15:16] LABS: HCT 43.3 % (36.0-46.0); HGB 14.6 g/dL (11.2-15.7); MCH 31.1 pg (27.0-33.0); MCHC 33.7 % (32.0-36.0); MCV 92 fL (80-95); MPV 10.7 fL (8.0-11.0); Platelet Count 180 10^3/uL (130-400); RBC 4.69 10^6/uL (3.93-5.22); RDW 12.7 % (11.7-14.6); RDW-SD 43.1 fL; WBC 5.38 10^3/uL (4.4-10.8)
[2025-02-07 16:06] LABS: Hemoglobin A1C 5.8 % (<5.7)
[2025-02-07 16:16] LABS: ALT 25 U/L (14-59); AST 20 U/L (15-37); Albumin 4.3 g/dL (3.4-5.0); Alkaline Phosphatase 74 U/L (46-116); Anion Gap 7.7 mmol/L (3-11); BUN 15 mg/dL (7-18); Bilirubin, Total 0.6 mg/dL (0.2-1.0); CO2 30.3 mmol/L (21.0-32.0); Calcium 9.5 mg/dL (8.5-10.1); Chloride 101 mmol/L (98-107); Estimated GFR 95.32 (mL/min/1.73m2); Glucose 86 mg/dL (74-106); Potassium 4.1 mmol/L (3.5-5.1); Sodium 139 mmol/L (136-145); Total Protein 7.2 g/dL (6.4-8.2); Vitamin B12 305 pg/mL (193-986)
[2025-02-07 21:45] LABS: Total Protein 7.0 g/dL (6.3-8.2)
[2025-02-10 14:25] LABS: Albumin 62.0 % (55.8-66.1); Albumin g/dL 4.3 g/dL (3.6-5.2); Alpha 1 g/dL 0.30 g/dL (0.15-0.40); Alpha 2 g/dL 0.70 g/dL (0.50-1.00); Beta g/dL 0.80 g/dL (0.60-1.20); Gamma g/dL 0.90 g/dL (0.60-1.60)
== END 2025-02-07 15:26 | disposition home or self-care (01) ==
LOC: NCHCN 15:25
PROVIDERS: PCP Family Medicine; Visit Provider Family Medicine
DX: Z13.1 Encounter for screening for diabetes mellitus (principal); I10 Essential (primary) hypertension
CPT/HCPCS: 80053; 82784; 85027; 82607; 83036; 84165; 84439

== ENCOUNTER 2025-02-25 13:05 | Outpatient (REF) | payer MEDICARE, MEDICAID, SELFPAY | END 2025-02-25 13:06 | disposition home or self-care (01) | LOC: NCHCN 13:05 | PROVIDERS: PCP Family Medicine; Visit Provider Family Medicine | DX: E53.9 Vitamin B deficiency, unspecified (principal) | CPT/HCPCS: 80186 ==

== ENCOUNTER 2025-02-28 15:07 | Outpatient (CLI) | payer MEDICARE, MEDICAID, SELFPAY ==
--- NOTE | 2025-02-28 | DI.CTLCSR_ITS ---
Exam(s) CT CHEST LUNG CANCER SCREEN EXAM: CT CHEST LUNG CANCER SCREEN CLINICAL HISTORY: TOBACCO DEPENDENCE CIGARETTES F17.210 SCREENING LUNG CANCER TECHNIQUE: Imaging Protocol: Axial computed tomography images with coronal and sagittal reformatted images were created and reviewed. Lung Computer Aided Detection (CAD) was utilized. COMPARISON: CT CT CHEST LUNG CANCER SCREEN from 06/21/[address] CHEST LUNG CANCER SCREEN from 12/04/2023 FINDINGS: Tracheobronchial tree: Patent where visualized. No bronchiectasis. Pulmonary parenchyma: No consolidation or dominant measurable mass. Moderate emphysematous changes are present. Lung Nodules: There are no suspicious pulmonary nodules. Mediastinum and Baylee: No dominant adenopathy or fluid collection. The esophagus is unremarkable. Thyroid gland: Unremarkable. Lymph nodes: Unremarkable. Pleura: No effusion or pneumothorax. Heart: The heart is not dilated. There is mild 2 vessel coronary artery calcification present. No pericardial effusion. Aorta: The ascending thoracic aorta measures 4.0 x 3.9 cm.Atherosclerotic calcification is present. Upper abdomen: Unremarkable. Soft Tissues: Unremarkable. Bones: Within normal limits. IMPRESSION: There are no suspicious pulmonary nodules. Lung RADS Cat 1 - Negative: No nodules and definitely benign nodules Lung-RADS 1.0 CATEGORIES: Category 0 - Prior chest CT exam(s) being located for comparison. Category 1 - Annual screening in 12 months. No nodules or definitely benign nodules. Category 2 - Annual screening in 12 months. Benign appearance. Nodules with low likelihood of becoming active cancer. Category 3 - 6-month follow-up. Probably benign. Short-term follow-up suggested. Nodules with low likelihood of becoming active cancer. Category 4A - 3-month follow-up and CT/PET if >8 mm in size. Suspicious finding. Findings which require additional testing. Category 4B - Findings which require additional testing and tissue sampling. Suspicious finding. Category 4X - Category 3 or 4 nodules with additional features or imaging findings that increases the suspicion of malignancy. Modifier S- Potentially clinically significant finding. (Non lung cancer) RADIATION DOSE DELIVERED: 24.47mGy.cm Total DLP 24.47mGy.cmTotal DLP DATA REPOSITORY: All CT scans at this facility are submitted to the National Radiology Data Registry (NRDR) Dose Index Registry (DIR) with the [employer] ([employer]). RADIATION OPTIMIZATION: All CT scans at this facility use at least one of these dose optimization techniques: automated exposure control; mA and/or kV adjustment per patient size (includes targeted exams where dose is matched to clinical indication); or iterative reconstruction.
== END 2025-02-28 15:27 ==
LOC: DI 15:08
PROVIDERS: PCP Family Medicine; Visit Provider Family Medicine
DX: Z12.2 Encounter for screening for malignant neoplasm of respiratory organs (principal); F17.210 Nicotine dependence, cigarettes, uncomplicated
CPT/HCPCS: 71271

== ENCOUNTER 2025-04-04 17:03 | Emergency (ER) | payer MEDICARE, MEDICAID, SELFPAY ==
[2025-04-04 17:05] VITALS: BP 143/88; PULSE 90; RESP 18; TEMP 36.7; O2SAT 93
[2025-04-04] MEDS: Lidocaine/Epinephri/Tetracaine Topical Gel 3 ML TP (17:42)
--- NOTE | 2025-04-04 17:49 | W.ED.GENAD ---
Discharge Plan Disposition Patient Disposition: Home Condition: Stable Discharge Details Clinical Impression: Laceration of left lower extremity Primary Care Provider: Melanie Cheng V ED Provider: Maximo Mahmood Home Meds and New Rx's Prescriptions: Continued Antibiotic ([id number]) 3.5mg-400 unit- 5,000 unit/gram ointment 1 applic topical BID triamcinolone acetonide 0.5 % cream 1 applic topical 3XD PRN diphenhydramine HCl [Benadryl Allergy] 25 mg tablet 25 mg PO QHS PRN betamethasone dipropionate 0.05 % cream 1 applic topical DAILY PRN fluticasone propionate 50 mcg/actuation spray,suspension 1 spray intranasal 2XD PRN Rx Instructions: administer into each nostril Cough Drops 2.7 mg lozenge 5.4 mg mucous membrane 6X/DAY PRN tetrahydrozoline [Visine] 0.05 % drops 1 drp ophthalmic (eye) 2XD albuterol sulfate [Ventolin HFA] 90 mcg/actuation HFA aerosol inhaler 2 puff inhalation .Q4-6h PRN phenol [Oral Relief Sore Throat Adams] 1 spray mucous membrane DAILY PRN cyanocobalamin (vitamin B-12) [Vitamin B-12] 1,000 MCG tablet extended release 1,000 mcg PO DAILY albuterol sulfate 8.5 GM HFA aerosol inhaler 2 inh Inhalation Q4H PRN PRN budesonide-formoterol [Symbicort] 60 PUFF HFA aerosol inhaler 1 inh Inhalation BID methocarbamol 500 MG tablet 500 mg PO BID hydrocodone-acetaminophen 5-325 mg tablet 1 tab PO QHS PRN Patient Comments: TAKE 1 TABLET BY MOUTH ONCE DAILY AT BEDTIME AND UP TO 5 ADDITIONAL TABLETS PER MONTH NEEDED FOR PAIN Rx Instructions: TAKE 1 TABLET BY MOUTH ONCE DAILY AT BEDTIME AND UP TO 5 ADDITIONAL TABLETS PER MONTH NEEDED FOR PAIN venlafaxine 150 mg capsule,extended release 24hr 150 mg PO DAILY levothyroxine 125 mcg tablet 125 mcg PO Q OTHER DAY Patient Comments: TAKE 1 TABLET BY MOUTH EVERY OTHER DAY losartan 25 mg tablet 50 mg PO DAILY Patient Comments: TAKE ONE TABLET BY MOUTH EVERY DAY omeprazole 20 mg capsule,delayed release(DR/EC) 20 mg PO DAILY Patient Comments: TAKE 1 CAPSULE BY MOUTH ONCE DAILY levothyroxine 112 mcg tablet 112 mcg PO Q OTHER DAY Patient Comments: TAKE 1 TABLET BY MOUTH EVERY OTHER DAY levofloxacin 750 mg tablet 750 mg PO DAILY Qty: 5 0RF hydroxyzine HCl 25 mg tablet 25 mg PO QID PRNQty: 10 0RF tizanidine 4 mg tablet 4 mg PO BID Patient Comments: TAKE ONE TABLET BY MOUTH TWICE A DAY NEEDED FOR MUSCLE RELAXANT docusate sodium 100 mg capsule 100 mg PO BID Patient Comments: TAKE ONE CAPSULE BY MOUTH TWICE A DAY NEEDED simvastatin 20 mg tablet 20 mg PO DAILY Patient Comments: TAKE ONE TABLET BY MOUTH EVERY DAY Discharge Instructions Additional Instructions: You were seen in the emergency department for your skin tear of the left lower extremity, this was repaired by 2 Steri-Strips which will fall off in about 2 weeks on their own, please return for any signs of infection like redness, red streaking of the arm, purulent drainage, keep the area clean and dry. Referrals: Melanie Cheng MD [Primary Care Provider, Medicine] Discharge Data Discharge Date/Time-TO BE ENTERED AT DEPARTURE: 04/04/25 18:54 HPI General Date/Time Provider Initiated Documentation: 04/04/25 17:23. HPI Narrative: 64 year-old female presents to ED today by POV/ambulating with a chief complaint of left posterior calf laceration from a boot lace hook with onset just prior to arrival. Quality described as minor bleeding, controlled with bandage, no radiation to numbness/tingling, gross contamination. Severity is described as mild. Palliating factors include bandage. Provoking factors include nothing specific. Events leading up to the incident/Associated Symptoms: Patients Tdap is UTD 2020. Patient not anticoagulated. Related Data Home Medications ?Medication ?Instructions ?Recorded ?Confirmed cyanocobalamin (vitamin B-12) 1,000 mcg PO DAILY 11/12/12 04/04/25 1,000 mcg tablet,extended release (Vitamin B-12 ER) albuterol sulfate 90 mcg/actuation 2 inh inhalation Q4H PRN PRN 03/21/15 04/04/25 aerosol inhaler budesonide-formoterol HFA 160 1 inh inhalation BID 03/21/15 04/04/25 mcg-4.5 mcg/actuation aerosol inhaler (Symbicort) methocarbamol 500 mg tablet 500 mg PO BID 02/04/17 04/04/25 hydrocodone 5 mg-acetaminophen 325 1 tab PO QHS PRN 12/27/20 04/04/25 mg tablet levothyroxine 112 mcg tablet 112 mcg PO Q OTHER DAY 12/27/20 04/04/25 levothyroxine 125 mcg tablet 125 mcg PO Q OTHER DAY 12/27/20 04/04/25 losartan 25 mg tablet 50 mg PO DAILY 12/27/20 04/04/25 omeprazole 20 mg capsule,delayed 20 mg PO DAILY 12/27/20 04/04/25 release venlafaxine 150 mg 150 mg PO DAILY 12/27/20 04/04/25 capsule,extended release 24 hr levofloxacin 750 mg tablet 750 mg PO DAILY #5 tabs 07/20/22 04/04/25 hydroxyzine HCl 25 mg tablet 25 mg PO QID PRN #10 tabs 03/27/23 04/04/25 docusate sodium 100 mg capsule 100 mg PO BID 05/11/24 04/04/25 simvastatin 20 mg tablet 20 mg PO DAILY 05/11/24 04/04/25 tizanidine 4 mg tablet 4 mg PO BID 05/11/24 04/04/25 albuterol sulfate 90 mcg/actuation 2 puff inhalation .Q4-6h PRN 03/05/25 04/04/25 aerosol inhaler (Ventolin HFA) betamethasone dipropionate 0.05 % 1 applic topical DAILY PRN 03/05/25 04/04/25 topical cream diphenhydramine HCl 25 mg tablet 25 mg PO QHS PRN 03/05/25 04/04/25 (Benadryl Allergy) fluticasone propionate 50 1 spray intranasal 2XD PRN 03/05/25 04/04/25 mcg/actuation nasal spray,suspension menthol 2.7 mg lozenges (Cough 5.4 mg mucous membrane 6X/DAY PRN 03/05/25 04/04/25 Drops) neomycin-bacitracn Zn-polymyx 3.5 1 applic topical BID 03/05/25 04/04/25 mg-400 unit-5,000 unit/gram top oint (Antibiotic([id number])) phenol [Oral Relief Sore Throat 1 spray mucous membrane DAILY PRN 03/05/25 04/04/25 Adams] tetrahydrozoline 0.05 % eye drops 1 drp ophthalmic (eye) 2XD 03/05/25 04/04/25 (Visine) triamcinolone acetonide 0.5 % 1 applic topical 3XD PRN 03/05/25 04/04/25 topical cream Previous Rx's ?Medication ?Instructions ?Recorded levofloxacin 750 mg tablet 750 mg PO DAILY #5 tabs 07/20/22 hydroxyzine HCl 25 mg tablet 25 mg PO QID PRN #10 tabs 03/27/23 Allergies Allergy/AdvReac Type Severity Reaction Status Date / Time bee venom protein (honey bee) Allergy Intermediate Anaphylaxis Verified 04/04/25 17:07 Latex, Natural Rubber Allergy Intermediate Topical Verified 04/04/25 17:07 Irritation varenicline (From Chantix) Allergy Intermediate Other (See Verified 04/04/25 17:07 Comment) weed pollen Allergy Mild Other (See Unverified 04/04/25 17:07 Comment) bupropion (From Wellbutrin) Allergy Other (See Verified 04/04/25 17:07 Comment) tiotropium (From Spiriva AdvReac Intermediate Other (See Verified 04/04/25 17:07 with HandiHaler) Comment) General Stated Complaint: Laceration NAYE: 4 Review of Systems All systems reviewed & are unremarkable except as noted in HPI and below Exam Narrative Exam Narrative: GENERAL APPEARANCE: Well-nourished, non-toxic, awake and alert, atraumatic, no acute distress. SKIN: Warm, pink, dry, 3cm triangular laceration/skin tear to posterior distal L calf- no active bleeding, NV intact HEAD: Normocephalic, atraumatic, normal hair distribution for gender/age. EYES: Normal conjunctiva, no exudates on lids/lashes. ENT: Nares patent, no circumoral cyanosis, no facial swelling NECK: Supple, trachea midline, painless cervical ROM. LUNGS/CHEST: Non-labored respirations, normal A/P diameter, symmetrical expansion, no chest wall deformity HEART (CV/PV): No peripheral edema, no JVD. ABDOMEN: Soft, non-distended, no guarding. MSK: Normal ROM, no swelling/deformity to bilateral UEs or LEs, moving all extremities without weakness, no cyanosis, spine midline without tenderness, normal curvature. NEURO: Mental Status AAOx4 - alert to person, place, time, events No facial droop, no forehead involvement. Motor: No focal weakness - strength 5/5 in bilateral UEs and LEs, proximal and distal, symmetric. Sensory: sensation intact to light touch globally. Gait normal: patient ambulated without ataxia into ED room. PSYCH: euthymic, cooperative, pleasant, appropriate speech Course Vital Signs Vital signs: Vital Signs Temperature 36.7 C 04/04/25 17:05 Pulse 90 04/04/25 17:05 Respiratory Rate 18 04/04/25 17:05 Blood Pressure 143/88 H 04/04/25 17:05 Pulse Oximetry 93 04/04/25 17:05 Temperature 36.7 C 04/04/25 17:05 Pulse 90 04/04/25 17:05 Respiratory Rate 18 04/04/25 17:05 Blood Pressure 143/88 H 04/04/25 17:05 Pulse Oximetry 93 04/04/25 17:05 Procedure Laceration Laceration 1: Provider that performed the procedure: Maximo Mahmood Standard Time Out Performed: No Patient Consented: Verbally Site: lower extremity Side (If applicable): left Description: stellate, flap and clean Depth: simple, single layer Local anesthetic: LET(lidocaine epinephrine tetracaine) Amount of anesthesia used (mL): 3 Pre-repair:: wound explored, irrigated extensively and deep structures intact Suture size: other (steri-strip x2) Complications: None Medical Decision Making This dictation utilizes [id number] dictation software and may contain unedited grammatical errors. 64 year-old female presents to ED today by POV/ambulating with a chief complaint of left posterior calf laceration from a boot lace hook with onset just prior to arrival. Quality described as minor bleeding, controlled with bandage, no radiation to numbness/tingling, gross contamination. Severity is described as mild. Palliating factors include bandage. Provoking factors include nothing specific. Events leading up to the incident/Associated Symptoms: Patients Tdap is UTD 2020. Patients' medical history: noncontributory. Family and social history: noncontributory. Pertinent exam findings / vital signs include 3cm triangular laceration/skin tear to posterior distal L calf- no active bleeding, NV intact. Differential / pathologies of concern include laceration. Diagnostic studies of: -None. Interventions of: -Steri-strip repair x2. ED Course/Assessment/Plan: 64-year-old female has a skin tear to the left posterior calf repaired by Steri-Strips counseled on return for any signs of infection or any other emergent concerns. Findings not consistent with grossly contaminated wound, foreign body. Disposition of laceration of left lower extremity. Patient verbalized understanding of the plan and return to ED criteria and engaged in shared decision making. Medical Records Medical records reviewed: Yes I reviewed the patient's medical records. PFSH All Active Problems (Updated 04/04/25 @ 18:34 by SANTIAGO López) Laceration of left lower extremity (Acute) Bursitis of right shoulder (Acute) Glenohumeral arthritis (Acute) Tubular adenoma of colon (Acute) Hypertension (Chronic) Thoracic aortic ectasia (Acute) Rib pain (Acute) Rash (Acute) Lingular pneumonia (Acute) Close exposure to COVID-19 virus (Acute) Dog bite (Acute) Medical History (Updated 04/04/25 @ 18:34 by SANTIAGO López) Benign neoplasm of colon Paresthesia Fatigue COVID-19 Neck pain Disorder of skin and subcutaneous tissue Lactose intolerance Hypersomnia Polyp, nasal, cavity Diverticula of intestine Essential hypertension Verruca vulgaris Cough Vitamin B deficiency FH: malignant neoplasm of digestive organ Allergy to honey bee venom Chronic sinusitis Major depression Right lower quadrant abdominal pain Right upper quadrant pain Therapeutic drug monitoring Chest pain Synovitis and tenosynovitis, unspecified Low back pain Generalized hyperhidrosis Encounter for routine adult health examination Dyspepsia Hx of cardiovascular disorder Bleeding from the nose Polymorphous light eruption Anxiety disorder COPD with acute exacerbation Spotted fevers Adjustment disorder Pain in right shoulder Chronic obstructive pulmonary disease Tobacco user Acute bronchiolitis Eustachian tube disorder Costal chondritis Barretts esophagus Lumbar radiculopathy Visual impairment Osteoporosis Epicondylitis, lateral humeral Knee pain, bilateral Nasal polyp B12 deficiency GERD (gastroesophageal reflux disease) Hypothyroidism History of syncope Dyspnea on exertion Dysphagia Surgical History (Updated 03/05/25 @ 11:38 by Graciela Reid) History of colonoscopy H/O: hysterectomy Acquired absence of both cervix and uterus Family History (Updated 03/05/25 @ 11:43 by Graciela Reid) Mother Family history of acute medical disorder FH: hyperthyroidism Post poliomyelitis syndrome Obesity Colon polyp Father , 64 lung cancer Lung cancer TB (tuberculosis) Emphysema lung Sister Nearly blind in one eye Social History (Updated 03/05/25 @ 11:44 by Graciela Reid) Smoking/Tobacco Use Status: Current every day Tobacco Type: cigarettes Smoking risk assessment performed?: Yes Alcohol Intake: never Drug use: Daily Substance use type: marijuana Current gender identity: female Do you feel safe at home: Yes Do you feel safe in your relationship?: Yes
[2025-04-04 18:53] VITALS: PULSE 63; RESP 18; O2SAT 95
== END 2025-04-04 18:54 | disposition home or self-care (01) ==
PROVIDERS: Emergency Provider Physician Assistant; PCP Family Medicine
DX: S81.812A Laceration without foreign body, left lower leg, initial encounter (principal); I10 Essential (primary) hypertension; J44.9 Chronic obstructive pulmonary disease, unspecified; W26.8XXA Contact with other sharp object(s), not elsewhere classified, initial encounter; Y93.89 Activity, other specified
CPT/HCPCS: 99283

== ENCOUNTER 2025-04-28 15:04 | Outpatient (CLI) | payer MEDICARE, MEDICAID, SELFPAY ==
--- NOTE | 2025-04-28 14:30 | DI.RAD_ITS ---
Exam(s) XR KNEE LT 2V AP,LAT EXAM: XR KNEE LT 2V AP,LAT CLINICAL HISTORY: M25.562 pain LT knee. TECHNIQUE: 2D digital imaging was performed. Three views. COMPARISON: CR XR KNEE RT 2V AP,LAT from 04/28/2025 FINDINGS: BONES: No acute fracture is present. No bony destructive lesion is seen. Enthesophyte at the quadriceps insertion on the patella. JOINTS: The knee is normally aligned. No joint effusion is seen. SOFT TISSUE: Calcification adjacent to the medial femoral condyle IMPRESSION: No acute abnormality. DATA REPOSITORY: RADIATION DOSE DELIVERED:
--- NOTE | 2025-04-28 14:30 | DI.RAD_ITS ---
Exam(s) XR KNEE RT 2V AP,LAT EXAM: XR KNEE RT 2V AP,LAT CLINICAL HISTORY: M25.561 RT knee pain. TECHNIQUE: 2D digital imaging was performed. Three views. COMPARISON: CR XR KNEE LT 3V AP,LAT,DAIN from 03/14/2024 FINDINGS: BONES: No acute fracture is present. No bony destructive lesion is seen. Small enthesophyte at the quadriceps insertion on the patella. JOINTS: The knee is normally aligned. No joint effusion is seen. SOFT TISSUE: Normal mild vascular calcifications. IMPRESSION: Small patellar enthesophyte. DATA REPOSITORY: RADIATION DOSE DELIVERED:
== END 2025-04-28 15:24 ==
LOC: DI 15:04
PROVIDERS: PCP Family Medicine; Visit Provider Anesthesiology Pain Medicine
DX: M25.561 Pain in right knee (principal); M25.562 Pain in left knee; M76.891 Other specified enthesopathies of right lower limb, excluding foot
CPT/HCPCS: 73560